=== PATIENT | male | born 1950 | race Caucasian/White ===

== ENCOUNTER 2016-12-22 09:00 | Emergency (ER) | payer OTHER, MEDICAID ==
[2016-12-22 09:02] VITALS: PULSE 65
--- NOTE | 2016-12-22 09:02 | EDPHY ---
H & P Time Seen by Provider: 12/22/16 09:02 - Personal History Tetanus Vaccine Date: ALLERGY - Medical/Surgical History Hx Asthma: Yes Hx Chronic Respiratory Disease: No Hx Diabetes: No Hx Cardiac Disease: Yes Hx Renal Disease: No Hx Cirrhosis: No Hx Alcoholism: No Hx HIV/AIDS: No Hx Splenectomy or Spleen Trauma: No Other PMH: FEMORAL BYPASS, CVA left weakness, CABG, [place], CHF, ORTHO (femur fx), W/C bound, GI Bleed, Left Ankle broken, - Social History Smoking Status: Former smoker Constitutional: Initial Vital Signs Temperature (C) 36.4 C 12/22/16 09:00 Heart Rate 65 12/22/16 09:00 Respiratory Rate 16 12/22/16 09:00 Blood Pressure 148/82 H 12/22/16 09:00 O2 Sat (%) 94 12/22/16 09:00 O2 Delivery Mode Room Air Allergies/Adverse Reactions: Horse/Equine Containing Products [Horse/Equine Product Derivatives] Allergy ( Severe, Verified 05/01/16 21:22) SWELLING Tetanus Vaccines and Toxoid [Tetanus] Allergy (Severe, Verified 05/01/16 21:22) SWELLING bee pollen [Bee Pollen] Allergy (Intermediate, Verified 05/01/16 21:22) SWELLING gabapentin Allergy (Verified 05/01/16 21:22) Other-Enter Comments Home Medications: Medication Instructions Recorded Atorvastatin Calcium [Lipitor 40 40 mg PO HS 02/12/15 mg (*)] Baclofen [Baclofen 10 mg (*)] 5 mg PO TID 02/12/15 Digoxin [Lanoxin 0.125 mg] 0.125 mg PO HS 02/12/15 Metoprolol Tartrate [Lopressor 50 125 mg PO BID@08,16 02/12/15 mg (*)] Nitroglycerin [Nitrostat 0.4 mg 0.4 mg SL PRN PRN 02/12/15 (*)] morphINE SR [Ms Contin/Oramorph 15 15 mg PO BID 02/12/15 mg (*)] Fluticasone/Salmeter 250/50Mcg 2 puffs IH BID 11/27/15 [Advair 250/50 (*)] Furosemide [Lasix 20 MG (*)] 20 mg PO DAILY 11/27/15 Losartan Potassium [Cozaar 25 mg 25 mg PO HS 11/27/15 (*)] Nystatin [Nyamyc] 100,000 units TP BID PRN 11/27/15 Topiramate 50 mg PO DAILY@12 11/27/15 Clopidogrel Bisulfate [Plavix (*)] 75 mg PO DAILY@12 04/10/16 FLUoxetine [Prozac 20 MG (*)] 20 mg PO DAILY 04/10/16 Propylene Glycol/Peg 400/Pf 1 each OP DAILY PRN 04/10/16 [Systane 0.3-0.4% Eye Drops] Bupropion HCl [Wellbutrin Xl] 300 mg PO HS 05/26/16 Warfarin Sodium [Coumadin 5MG (*)] 5 mg PO DAILY 05/26/16 Pantoprazole Sodium [Protonix 40mg 40 mg PO BID #40 tab 05/27/16 (*)] Promethazine HCl [Phenergan 12.5mg 12.5 mg PO Q6 PRN #40 tablet 05/27/16 tab] Medical Decision Making ED Course/Re-evaluation: CHIEF COMPLAINT: abdominal pain HISTORY OF PRESENT ILLNESS: The patient is an anticoagulated 66 y/o male arriving via EMS complaining of acute onset RUQ abdominal pain 1 hour ago. He has a history of MIs, CAD, and CVA with persistent left-sided weakness and is wheelchair-bound. He denies associated nausea, vomiting, diarrhea, fever, chills , or recent illness. His pain decreased from 7/10 to 2/10 en route to the ED. He has a large abdominal scar, but is unable to tell me if he's had any abdominal surgeries. He is a poor historian and is otherwise unable to contribute to history. REVIEW OF SYSTEMS: Limited as patient is a poor historian. PHYSICAL EXAM: HR, BP, O2 Sat, RR. Temp noted General Appearance: Alert, well hydrated, appropriate, and non-toxic appearing. Head: Atraumatic without scalp tenderness or obvious injury Eyes: Pupils equal, round, reactive to light and accommodation, EOMI, no trauma , no injection. Ears: Clear bilaterally, no perforation, normal landmarks Nose: Atraumatic, no rhinorrhea, clear. Throat: There is no erythema or exudates, no lesions, normal tonsils, mucus membranes moist. Neck: Supple, nontender, no lymphadenopathy. Respiratory: No retractions, no distress, no wheezes, and no accessory muscle use. Lungs are clear to auscultation bilaterally. Cardiovascular: Regular rate and rhythm, no murmurs, rubs, or gallops. Good capillary refill all extremities. Gastrointestinal: Abdomen is soft, RUQ tenderness with reducible incisional hernia to the left of abdominal scar, associated distended, no masses, no rebound, no guarding, no peritoneal signs. Well-healed midline scar with small area of excoriation. Musculoskeletal: Normal active ROM of all extremities, atraumatic. Neurological: Alert, appropriate, and interactive. Left arm and bilateral leg weakness at baseline. Skin: No rashes, good turgor, no nodules on palpation. Past medical history: MIs, CVA 2013 with L deficits and wheelchair bound Past surgical history: CABG, femoropopliteal bypass - Dr. Mendez Family history: noncontributory Social history: Private residence Prior medical records reviewed including admission 05/26/16 for GI bleed. DIAGNOSTICS/PROCEDURES/CRITICAL CARE TIME: Abdominal CT. I viewed the images myself on the PACS system. DIFFERENTIAL DIAGNOSIS: The differential diagnosis for the patient's abdominal pain included but was not limited to surgical complication, constipation, appendicitis, cholecystitis, hernias, testicular torsion, gastritis, and urinary tract infection. MEDICAL DECISION MAKING: This is a 66 y/o male with significant history for arthrosclerotic disease presenting with isolated RUQ tenderness onset 1 hour prior to arrival. He is unable to provide much associated history and denies all associated symptoms. Plan for standard abdominal pain work up including IV, ISTAT, and abdominal CT. He declines pain medication at this time. 1030: Abdominal CT is negative per Helgans other than hernia at incision site. Reassessed patient and discussed these findings. Abdomen is benign. Patient will be discharged home with referral to his PCP for follow up. He is comfortable with this plan. Return precautions given. Departure - Departure Disposition: Home, Routine, Self-Care Clinical Impression: Abdominal pain Qualifiers: Abdominal location: generalized Qualified Code(s): R10.84 - Generalized abdominal pain Condition: Good Instructions: Abdominal Pain (ED) Additional Instructions: Follow up with your primary care provider for symptoms not improved over the next 2-3 days. Return to the ED for worsening of condition. Referrals: Patient,NotPresent [Unknown] - As per Instructions Rebecca Pablo MD [[facility] Primary Care Provider] - As per Instructions Report Scribed for: Roberto Alicea Report Scribed by: Nicci Elias Date of Report: 12/22/16 Time of Report: 09:02
[2016-12-22] MEDS ORDERED: IOPAMIDOL (ISOVUE-300) 100 ML BTL IV ONE (09:44)
[2016-12-22 11:24] VITALS: BP 132/53; RESP 18; TEMP 97.7; O2SAT 93
== END 2016-12-22 12:50 | disposition home or self-care (01) ==
DX: R10.84 Generalized abdominal pain (principal); J45.909 Unspecified asthma, uncomplicated; I25.2 Old myocardial infarction; I50.9 Heart failure, unspecified; Z79.01 Long term (current) use of anticoagulants; Z86.73 Personal history of transient ischemic attack (TIA), and cerebral infarction without residual deficits; Z95.1 Presence of aortocoronary bypass graft; Z87.891 Personal history of nicotine dependence
CPT/HCPCS: 74177; 99285; Q9967; 82947-QW

== ENCOUNTER 2017-04-19 14:07 | Emergency (ER) | payer OTHER, MEDICAID ==
[2017-04-19 14:16] VITALS: TEMP 97.7; O2SAT 90
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
[2017-04-19 18:14] VITALS: BP 121/63; PULSE 58; RESP 18
== END 2017-04-19 18:16 | disposition home or self-care (01) ==
LOC: EDUNIT#
PROC: 0HQLXZZ Repair Left Lower Leg Skin, External Approach (ICD-10-PCS; principal; 2017-04-19)
DX: S81.812A Laceration without foreign body, left lower leg, initial encounter (principal); S60.512A Abrasion of left hand, initial encounter; S60.222A Contusion of left hand, initial encounter; S80.12XA Contusion of left lower leg, initial encounter; I25.2 Old myocardial infarction; I50.9 Heart failure, unspecified; Z79.01 Long term (current) use of anticoagulants; Z95.1 Presence of aortocoronary bypass graft; Z87.891 Personal history of nicotine dependence; W26.8XXA Contact with other sharp object(s), not elsewhere classified, initial encounter

== ENCOUNTER 2017-04-27 12:55 | Emergency (ER) | payer OTHER, MEDICAID ==
[2017-04-27 13:07] VITALS: BP 116/81; PULSE 64; RESP 20; TEMP 97.9; O2SAT 95
--- NOTE | 2017-04-27 13:52 | EDPHY ---
H & P Stated Complaint: recheck wound l calvin stitches last week increasing pain HPI/ROS: HPI CHIEF COMPLAINT: Left lower extremity sutures and redness HISTORY OF PRESENT ILLNESS: This patient very pleasant 66-year-old male significant past medical history for CABG with mi, CHF, history of GI bleed, presents emergency room, with concern and pain in his left lower extremity recent sutured laceration. Upon arrival to the emergency room I did evaluate him he has a dressing in place. The dressing was removed. The sutures are in place. There is no wound dehiscence. There is no signs of infection. There is no drainage or redness. Does state it hurts but now feels better after dressing removed. I believe that the dressing was too tight on top of his sutures with a socket was pressing directly on the wound. We removed the dressing and rolled down the sock. There is no signs of infection. I recommend re-dressing wound sutures need to be removed in 12 days from time of onset of suture placement. That should be the 17th of this month. He understands that. This time there is no signs infection. Feels better after compression dressing removed. Past Medical History: CABG, mi, CHF, GI bleed, recent left lower extremity distal laceration repaired. Past Surgical History: No recent surgery Social History: Denies daily use of drugs alcohol tobacco products. Family History: Noncontributory. ROS REVIEW OF SYSTEMS: A comprehensive 10 point review of systems is otherwise negative aside from elements mentioned in the history of present illness. Exam Constitutional appears well, in wheelchair, nontoxic triage nursing summary reviewed, vital signs reviewed, awake/alert. Eyes normal conjunctivae and sclera, EOMI, PERRLA. HENT normal inspection, atraumatic, moist mucus membranes, no epistaxis, neck supple/ no meningismus, no raccoon eyes. Respiratory clear to auscultation bilaterally, normal breath sounds, no respiratory distress, no wheezing. Cardiovascular rate normal, regular rhythm, no murmur, no edema, distal pulses normal. Gastrointestinal soft, non-tender, no rebound, no guarding, normal bowel sounds, no distension, no pulsatile mass. Genitourinary no CVA tenderness. Musculoskeletal no midline vertebral tenderness, full range of motion, no calf swelling, no tenderness of extremities, no meningismus, good pulses, neurovascularly intact. Skin left lower extremity distal aspect anterior calvin; sutures are in place. Clean incision line. No signs of infection no redness no drainage no pus. No significant pain. No significant swelling. pink, warm, & dry, no rash, skin atraumatic. Neurologic awake, alert and oriented x 3, AAOx3, moves all 4 extremities equally, motor intact, sensory intact, CN II-XII intact, normal cerebellar, normal vision, normal speech. Psychiatric normal mood/affect. Heme/Lymph/Immune no lymphadenopathy. Differential Diagnosis: Incision site looks clean dry and intact no signs infection. We have changed the dressing. Patient understands have sutures removed in 10-12 days. Keep an eye on it. If he has redness, worsening pain or fever return emergency room. Source: Patient - Personal History Current Tetanus/Diphtheria Vaccine: Unsure Tetanus Vaccine Date: ALLERGY - Medical/Surgical History Hx Asthma: Yes Hx Chronic Respiratory Disease: No Hx Diabetes: No Hx Cardiac Disease: Yes Hx Renal Disease: No Hx Cirrhosis: No Hx Alcoholism: No Hx HIV/AIDS: No Hx Splenectomy or Spleen Trauma: No Other PMH: FEMORAL BYPASS, CVA left weakness, CABG, [place], CHF, ORTHO (femur fx), W/C bound, GI Bleed, Left Ankle broken, - Social History Smoking Status: Former smoker Constitutional: Initial Vital Signs Temperature (C) 36.6 C 04/27/17 13:05 Heart Rate 64 04/27/17 13:05 Respiratory Rate 20 04/27/17 13:05 Blood Pressure 116/81 H 04/27/17 13:05 O2 Sat (%) 95 04/27/17 13:05 O2 Delivery Mode Room Air Allergies/Adverse Reactions: Horse/Equine Containing Products [Horse/Equine Product Derivatives] Allergy ( Severe, Verified 04/27/17 13:04) SWELLING Tetanus Vaccines and Toxoid [Tetanus] Allergy (Severe, Verified 04/27/17 13:04) SWELLING bee pollen [Bee Pollen] Allergy (Intermediate, Verified 04/27/17 13:04) SWELLING gabapentin Allergy (Verified 04/27/17 13:04) Other-Enter Comments Home Medications: Medication Instructions Recorded Atorvastatin Calcium [Lipitor 40 40 mg PO HS 02/12/15 mg (*)] Baclofen [Baclofen 10 mg (*)] 5 mg PO TID 02/12/15 Digoxin [Lanoxin 0.125 mg] 0.125 mg PO HS 02/12/15 Metoprolol Tartrate [Lopressor 50 125 mg PO BID@08,16 02/12/15 mg (*)] Nitroglycerin [Nitrostat 0.4 mg 0.4 mg SL PRN PRN 02/12/15 (*)] morphINE SR [Ms Contin/Oramorph 15 15 mg PO BID 02/12/15 mg (*)] Fluticasone/Salmeter 250/50Mcg 2 puffs IH BID 11/27/15 [Advair 250/50 (*)] Furosemide [Lasix 20 MG (*)] 20 mg PO DAILY 11/27/15 Losartan Potassium [Cozaar 25 mg 25 mg PO HS 11/27/15 (*)] Nystatin [Nyamyc] 100,000 units TP BID PRN 11/27/15 Topiramate 50 mg PO DAILY@11/27/15 Clopidogrel Bisulfate [Plavix (*)] 75 mg PO DAILY@12 04/10/16 FLUoxetine [Prozac 20 MG (*)] 20 mg PO DAILY 04/10/16 Propylene Glycol/Peg 400/Pf 1 each OP DAILY PRN 04/10/16 [Systane 0.3-0.4% Eye Drops] Bupropion HCl [Wellbutrin Xl] 300 mg PO HS 05/26/16 Warfarin Sodium [Coumadin 5MG (*)] 5 mg PO DAILY 05/26/16 Pantoprazole Sodium [Protonix 40mg 40 mg PO BID #40 tab 05/27/16 (*)] Promethazine HCl [Phenergan 12.5mg 12.5 mg PO Q6 PRN #40 tablet 05/27/16 tab] Departure - Departure Disposition: Home, Routine, Self-Care Clinical Impression: Leg laceration Qualifiers: Encounter type: initial encounter Laterality: left Qualified Code(s): S81.812A - Laceration without foreign body, left lower leg, initial encounter Condition: Good Instructions: Laceration (ED), Care For Your Stitches (ED) Additional Instructions: 1. If you have worsening pain, redness, drainage, swelling or any questions or concerns return emergency room. 2. Your sutures need to be removed in 12 days from time of onset. That is 4 days from or May 01. Referrals: Babita Ayala PA [Primary Care Provider] - As per Instructions
== END 2017-04-27 14:24 | disposition home or self-care (01) ==
DX: S81.812D Laceration without foreign body, left lower leg, subsequent encounter (principal); I50.9 Heart failure, unspecified; I25.2 Old myocardial infarction; J45.909 Unspecified asthma, uncomplicated; Z95.1 Presence of aortocoronary bypass graft; Z86.73 Personal history of transient ischemic attack (TIA), and cerebral infarction without residual deficits; Z87.891 Personal history of nicotine dependence; Z79.01 Long term (current) use of anticoagulants; X58.XXXD Exposure to other specified factors, subsequent encounter

== ENCOUNTER 2017-05-01 11:35 | Emergency (ER) | payer OTHER, MEDICAID ==
[2017-05-01 11:42] VITALS: RESP 18; TEMP 98.2
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
[2017-05-01 14:17] VITALS: BP 139/64; PULSE 59; O2SAT 96
== END 2017-05-01 13:40 | disposition home or self-care (01) ==
DX: L03.115 Cellulitis of right lower limb (principal); J45.909 Unspecified asthma, uncomplicated; I25.2 Old myocardial infarction; I25.810 Atherosclerosis of coronary artery bypass graft(s) without angina pectoris; I50.9 Heart failure, unspecified; Z79.01 Long term (current) use of anticoagulants; Z86.73 Personal history of transient ischemic attack (TIA), and cerebral infarction without residual deficits; Z87.891 Personal history of nicotine dependence

== ENCOUNTER → 2017-08-15 | Outpatient (CLI) | payer OTHER, MEDICAID | LOC: FCPNEURO 22:56 | PROVIDERS: ATTEND Psychiatry & Neurology Sleep Medicine | DX: G47.39 Other sleep apnea (principal) ==

== ENCOUNTER 2017-11-11 11:08 | Emergency (ER) | payer OTHER, MEDICAID ==
--- NOTE | 2017-11-11 10:54 | EDPHY ---
H & P Constitutional: Initial Vital Signs Temperature (C) 36.7 C 11/11/17 11:08 Heart Rate 60 11/11/17 11:08 Respiratory Rate 16 11/11/17 11:08 Blood Pressure 153/91 H 11/11/17 11:08 O2 Sat (%) 94 11/11/17 11:08 O2 Delivery Mode Nasal Cannula O2 (L/minute) 2 Allergies/Adverse Reactions: Horse/Equine Containing Products [Horse/Equine Product Derivatives] Allergy ( Severe, Verified 11/11/17 11:34) SWELLING Tetanus Vaccines and Toxoid [Tetanus] Allergy (Severe, Verified 11/11/17 11:34) SWELLING bee pollen [Bee Pollen] Allergy (Intermediate, Verified 11/11/17 11:34) SWELLING gabapentin Allergy (Verified 11/11/17 11:34) Other-Enter Comments Home Medications: Medication Instructions Recorded Atorvastatin Calcium [Lipitor 40 40 mg PO HS 02/12/15 mg (*)] Baclofen [Baclofen 10 mg (*)] 5 mg PO TID 02/12/15 Digoxin [Lanoxin 0.125 mg] 0.125 mg PO HS 02/12/15 Metoprolol Tartrate [Lopressor 50 125 mg PO BID@,16 02/12/15 mg (*)] Nitroglycerin [Nitrostat 0.4 mg 0.4 mg SL PRN PRN 02/12/15 (*)] morphINE SR [Ms Contin/Oramorph 15 15 mg PO BID 02/12/15 mg (*)] Fluticasone/Salmeter 250/50Mcg 2 puffs IH BID 11/27/15 [Advair 250/50 (*)] Furosemide [Lasix 20 MG (*)] 20 mg PO DAILY 11/27/15 Losartan Potassium [Cozaar 25 mg 25 mg PO HS 11/27/15 (*)] Nystatin [Nyamyc] 100,000 units TP BID PRN 11/27/15 Topiramate 50 mg PO DAILY@12 11/27/15 FLUoxetine [Prozac 20 MG (*)] 20 mg PO DAILY 04/10/16 Propylene Glycol/Peg 400/Pf 1 each OP DAILY PRN 04/10/16 [Systane 0.3-0.4% Eye Drops] Cephalexin [Keflex] 500 mg PO QID #28 cap 05/01/17 Medical Decision Making - Diagnostics Imaging Results: Imaging Impressions Head CT 11/11/17 11:14 Impression: Areas of old encephalomalacia involving the right frontoparietal and left posterior parietal regions of the brain with more extensive white matter changes on the right side than on a prior study of 2012. There is no acute intracranial hemorrhage observed. If there is further clinical concern regarding the patient's symptoms, MR imaging is suggested, if not otherwise contraindicated. Findings were discussed with Roberto Alicea MD at 11:22, on 11/11/2017. He requests a CTA of the head and neck, which will be subsequently performed, and separately reported. Head CTA 11/11/17 11:14 Impression: 1. Profound, extensive atherosclerotic calcific plaquing, with occlusion of the proximal right internal carotid artery shortly after its origin, with reconstitution intracranially at the supraclinoid aspect (please see the above discussion). 2. Critical tandem stenoses of the proximal left internal carotid artery, with patency of the [id number] cervical portions of the left ICA. 3. Patent codominant vertebral arteries. CT ANGIOGRAPHY OF THE BRAIN: The distal cervical, petrous, and cavernous portions of the right internal carotid artery are occluded with peripheral atherosclerotic calcifications. There is reconstitution of the supraclinoid portion of the right internal carotid artery, likely from retrograde flow and cross fill through the anterior communicating artery. The distal left cervical, petrous, cavernous, and supraclinoid internal carotid arteries are patent with atherosclerotic calcifications involving the parasellar portions of the internal carotid arteries. The A1 and A2 segments are patent as are the M1, M2, and M3 trifurcation vessels. With regards to the posterior circulation, the distal vertebral arteries are patent; there is atherosclerotic calcific plaque involving portions of the vertebral arteries near the skull base, right much greater than left. The posterior inferior cerebellar arteries, vertebrobasilar confluence, basilar artery, superior cerebellar arteries, and the posterior cerebral arteries are patent. The posterior communicating arteries are hypoplastic. Impression: 1. Occlusion of the distal cervical, petrous, and cavernous portions of the right internal carotid artery with reconstitution of the supraclinoid portion. 2. Intact [place] of [place], with extensive atherosclerotic features. CT Source Data: The land agent topogram demonstrates median sternotomy wires. The visualized portions of the heart are enlarged, and there is mediastinal lipomatosis; extensive atherosclerotic features are noted, with prior evidence of CABG. There is some peribronchial thickening and there are dependent changes. Imaging of the base of the neck and the upper thoracic inlet are degraded by motion artifact. The trachea is patent, although there is suboptimal assessment of the hypopharynx and larynx. Extensive degenerative features of the cervical spine are noted. There is an old left posterior parietal infarct, and extensive encephalomalacia of the right cerebral hemisphere with right frontal/parietal areas of encephalomalacia. Measurement of carotid stenosis is based on the residual internal carotid diameter with [place] Symptomatic Carotid Endarterectomy Trial (NASCET) based stenosis levels. Preliminary results were discussed with Roberto Alicea MD at 11:54, on 2017. Neck CTA 11/11/17 11:14 Impression: 1. Profound, extensive atherosclerotic calcific plaquing, with occlusion of the proximal right internal carotid artery shortly after its origin, with reconstitution intracranially at the supraclinoid aspect (please see the above discussion). 2. Critical tandem stenoses of the proximal left internal carotid artery, with patency of the [id number] cervical portions of the left ICA. 3. Patent codominant vertebral arteries. CT ANGIOGRAPHY OF THE BRAIN: The distal cervical, petrous, and cavernous portions of the right internal carotid artery are occluded with peripheral atherosclerotic calcifications. There is reconstitution of the supraclinoid portion of the right internal carotid artery, likely from retrograde flow and cross fill through the anterior communicating artery. The distal left cervical, petrous, cavernous, and supraclinoid internal carotid arteries are patent with atherosclerotic calcifications involving the parasellar portions of the internal carotid arteries. The A1 and A2 segments are patent as are the M1, M2, and M3 trifurcation vessels. With regards to the posterior circulation, the distal vertebral arteries are patent; there is atherosclerotic calcific plaque involving portions of the vertebral arteries near the skull base, right much greater than left. The posterior inferior cerebellar arteries, vertebrobasilar confluence, basilar artery, superior cerebellar arteries, and the posterior cerebral arteries are patent. The posterior communicating arteries are hypoplastic. Impression: 1. Occlusion of the distal cervical, petrous, and cavernous portions of the right internal carotid artery with reconstitution of the supraclinoid portion. 2. Intact [place] of [place], with extensive atherosclerotic features. CT Source Data: The land agent topogram demonstrates median sternotomy wires. The visualized portions of the heart are enlarged, and there is mediastinal lipomatosis; extensive atherosclerotic features are noted, with prior evidence of CABG. There is some peribronchial thickening and there are dependent changes. Imaging of the base of the neck and the upper thoracic inlet are degraded by motion artifact. The trachea is patent, although there is suboptimal assessment of the hypopharynx and larynx. Extensive degenerative features of the cervical spine are noted. There is an old left posterior parietal infarct, and extensive encephalomalacia of the right cerebral hemisphere with right frontal/parietal areas of encephalomalacia. Measurement of carotid stenosis is based on the residual internal carotid diameter with [place] Symptomatic Carotid Endarterectomy Trial (NASCET) based stenosis levels. Preliminary results were discussed with Roberto Alicea MD at 11:54, on 2017. Imaging: Discussed imaging studies w/ call center specialist Radiologist ED Course/Re-evaluation: CHIEF COMPLAINT: Stroke alert HISTORY OF PRESENT ILLNESS: This patient is an anticoagulated (Xarelto) 67 year old male arriving via EMS for evaluation of possible stroke. He has significant past medical history for prior CVA with resultant left-sided deficits. His symptoms began 30 minutes prior to arrival, around 10:40am today. He initially was aphasic, and his family noticed left-sided facial droop. His speech difficulty resolved slightly during transport but he continues to have slurred speech. Vitals stable in transport. No recent trauma, head injury, or illness. REVIEW OF SYSTEMS: A 10 point review of systems was performed and is negative with the exception of the elements mentioned in the history of present illness. PHYSICAL EXAM: HR, BP, O2 Sat, RR. Temp noted General Appearance: Alert, well hydrated, appropriate, and non-toxic appearing. Head: Atraumatic without scalp tenderness or obvious injury Eyes: Pupils equal, round, reactive to light and accommodation, EOMI, no trauma , no injection. Ears: Clear bilaterally, no perforation, normal landmarks Nose: Atraumatic, no rhinorrhea, clear. Throat: There is no erythema or exudates, no lesions, normal tonsils, mucus membranes moist. Neck: Supple, nontender, no lymphadenopathy. Respiratory: No retractions, no distress, no wheezes, and no accessory muscle use. Lungs are clear to auscultation bilaterally. Cardiovascular: Regular rate and rhythm, no murmurs, rubs, or gallops. Bilateral carotid, radial, dorsalis pedis, and posterior tibial pulses intact. Good capillary refill all extremities. Gastrointestinal: Abdomen is soft, nontender, non-distended, no masses, no rebound, no guarding, no peritoneal signs. Musculoskeletal: Left arm hemiparesis with contracture secondary to prior CVA. Atraumatic. Neurological: Slurred speech. Left arm hemiparesis resulting from prior CVA in 2013. Patient is alert and interactive. Skin: No rashes, good turgor, no nodules on palpation. 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 Atrial fibrillation. COPD. Chronic pain. Coronary artery disease. Past surgical history: CABG. Family history: Noncontributory. Social history: Family at bedside. Lives in [place]. Single. DIAGNOSTICS/PROCEDURES/CRITICAL CARE TIME: Critical care time spent by me, Dr. Alicea, exclusively with this patient was 30 minutes, exclusive of PA time and exclusive of procedures. The organ system at risk was nervous and I consulted with neurology, radiology, and vascular surgery and emergently transferred the patient to a neurosurgeon at [facility] to prevent worsening of the patients condition. The 12 lead EKG was interpreted by myself. See hard copy and/or "tracemaster" electronic copy for interpretation. Sinus rhythm, no ischemic changes. Rate 56. DIFFERENTIAL DIAGNOSIS: The differential diagnosis for the patient's neurologic deficits included but was not limited to peripheral causes, central causes including CVA, TIA, electrolyte abnormalities and dehydration, cardiogenic causes, atypical causes like migraine syndrome. MEDICAL DECISION MAKIN:09 Met EMS on arrival. 67 y/o male with history of prior CVA presents with speech difficulty and left-sided facial droop, now resolving. Symptoms began at 10:40am. I do not note any facial neurologic deficits on exam. This patient is not a candidate for TPA as he is anticoagulated (Xarelto). Patient will go directly to imaging for CT head, CTA head/neck. Plan for EKG, labs including CBC, chemistries, coag, type and screen. EKG shows sinus rhythm, no ischemia, rate 56. 11:[address] Singh, radiologist. No acute findings on noncontrast head CT. Patient's INR is subtherapeutic at 1.29, but as he is on Xarelto, this is less diagnostic. 11:[address] Singh. CTA shows occluded right internal carotid, critical stenosis of left ICA. See above for full interpretation. 12:00 Consulted with neurology at [facility]. Carotid endarterectomy and vascular consult. 12:[address] Mendez, vascular surgeon. He will consult. 12:11 Dr. Mendez at bedside. He recommends transfer to [facility] for urgent intervention. RCA completely occluded. Plan for emergent transfer to [facility] for thrombolysis and further intervention. 12:[address] Burton at [facility]. Plan to transport by helicopter to [facility] ER. 13:10 Patient en route to [facility] by [employer]. - Data Points Laboratory Results: Laboratory Results 11/11/17 11:00 11/11/17 11:00 11/11/17 11/11/17 11/11/17 12:00 11:00 11:00 WBC RBC Hgb Hct MCV MCH MCHC RDW Plt Count MPV Neut % (Auto) Lymph % (Auto) Crowley % (Auto) Eos % (Auto) Baso % (Auto) Nucleat RBC Rel Count Absolute Neuts (auto) Absolute Lymphs (auto) Absolute Monos (auto) Absolute Eos (auto) Absolute Basos (auto) Absolute Nucleated RBC Immature Gran % Immature Gran # PT 16.3 SEC H SEC (12.0-15.0) INR 1.29 H (0.83-1.16) APTT 32.2 SEC SEC (23.0-38.0) Sodium 139 mEq/L mEq/L (135-145) Potassium 4.2 mEq/L mEq/L (3.5-5.2) Chloride 102 mEq/L mEq/L (97-110) Carbon Dioxide 24 mEq/l mEq/l (22-31) Anion Gap 13 mEq/L mEq/L (8-16) BUN 11 mg/dL mg/dL (7-23) Creatinine 1.0 mg/dL mg/dL (0.7-1.3) Estimated GFR > 60 Glucose 103 mg/dL H mg/dL (70-100) Calcium 9.3 mg/dL mg/dL (8.5-10.4) Troponin I < 0.012 ng/mL ng/mL (0.000-0.034) Patient ABO/Rh AB POSITIVE Antibody Screen NEGATIVE 11/11/17 11:00 WBC 9.96 10^3/uL H 10^3/uL (3.80-9.50) RBC 5.55 10^6/uL 10^6/uL (4.40-6.38) Hgb 15.4 g/dL g/dL (13.7-17.5) Hct 46.9 % % (40.0-51.0) MCV 84.5 fL fL (81.5-99.8) MCH 27.7 pg L pg (27.9-34.1) MCHC 32.8 g/dL g/dL (32.4-36.7) RDW 15.9 % H % (11.5-15.2) Plt Count 173 10^3/uL 10^3/uL (150-400) MPV 11.0 fL fL (8.7-11.7) Neut % (Auto) 70.8 % % (39.3-74.2) Lymph % (Auto) 14.1 % L % (15.0-45.0) Crowley % (Auto) 10.1 % % (4.5-13.0) Eos % (Auto) 3.1 % % (0.6-7.6) Baso % (Auto) 1.1 % % (0.3-1.7) Nucleat RBC Rel Count 0.0 % % (0.0-0.2) Absolute Neuts (auto) 7.05 10^3/uL H 10^3/uL (1.70-6.50) Absolute Lymphs (auto) 1.40 10^3/uL 10^3/uL (1.00-3.00) Absolute Monos (auto) 1.01 10^3/uL H 10^3/uL (0.30-0.80) Absolute Eos (auto) 0.31 10^3/uL 10^3/uL (0.03-0.40) Absolute Basos (auto) 0.11 10^3/uL H 10^3/uL (0.02-0.10) Absolute Nucleated RBC 0.00 10^3/uL 10^3/uL (0-0.01) Immature Gran % 0.8 % % (0.0-1.1) Immature Gran # 0.08 10^3/uL 10^3/uL (0.00-0.10) PT INR APTT Sodium Potassium Chloride Carbon Dioxide Anion Gap BUN Creatinine Estimated GFR Glucose Calcium Troponin I Patient ABO/Rh Antibody Screen Departure - Departure Disposition: Acute Care Hospital Not [facility] Clinical Impression: Left carotid artery stenosis, Right carotid artery occlusion Condition: Fair Referrals: Patient,NotPresent [Unknown] - As per Instructions Report Scribed for: Roberto Alicea Report Scribed by: Amberly Joe Date of Report: 11/11/17 Time of Report: 10:54
[2017-11-11 11:25] LABS: PLATELET COUNT 173 10^3/uL (150-400)
[2017-11-11 11:37] LABS: INR 1.29 (0.83-1.16); PROTIME(PATIENT) 16.3 SEC (12.0-15.0)
[2017-11-11 11:43] VITALS: RESP 16
--- NOTE | 2017-11-11 11:51 | CPEKG ---
Heart Rate: 56 RR Interval: 1071 P-R Interval: 212 QRSD Interval: 96 QT Interval: 424 QTC Interval: 410 P Java: 53 QRS Java: 46 T Wave Java: 198 EKG Severity - NORMAL ECG - EKG Impression: SINUS RHYTHM Electronically Signed By: Roberto Alicea 11-Nov-2017 14:09:33
[2017-11-11 13:27] VITALS: BP 148/77; PULSE 54; TEMP 98.2; O2SAT 94
--- NOTE | 2017-11-11 15:00 | GCON ---
[f rep st] CONSULTATION DATE OF CONSULTATION: 11/11/2017 HISTORY OF PRESENTING ILLNESS: The patient is a 67-year-old male who was brought to the ER with a TI A, possible stroke with inability to speak for a brief amount of time. His symptoms have largely res olved by the time I was consulted; however, his CTA shows complete occlusion of his right carotid fro m a tight stenosis at the origin of the internal carotid all way up into the middle cerebral area. Erin collins also has a severe 90% carotid stenosis of the left side. The vertebral arteries are wide open. He is definitely a vasculopath, having had multiple heart surgeries, had a previous femoral-popliteal b ypass by myself 4 years ago. He has had a previous CVA, leaving him hemiparetic on the left side. Erin collins does have an intact [place] of [place]. PAST MEDICAL HISTORY: Includes coronary surgery, abdominal aortic repair and a femoral-popliteal byp ass as well as the CVA. ALLERGIES: Tetanus, bee pollen, Neurontin. PRESENT MEDICATIONS: Lipitor, baclofen, digoxin, metoprolol, nitroglycerin, morphine, MS-Contin, Adv air, Lasix, potassium, losartan, nystatin, Prozac, Systane, and Keflex. EXAM: GENERAL: An overweight 67-year-old male who is in no acute distress. HEAD AND NECK: Pupils to be normal, nonicteric. No adenopathy. He has no carotid bruits. CHEST: Clear. CARDIAC: Irreg ular rhythm. ABDOMEN: Soft with a large midline abdominal incision and a large ventral hernia in th e lower abdomen. EXTREMITIES: A left hemiparesis. IMPRESSION: Transient ischemic attack. This may or may not be related to an acute occlusion of his right carotid, which I suspect is old from his previous stroke 5 years ago. He has had no carotid im aging that we can find to verify whether this is fresh or old and since the symptoms have largely res olved with no significant acute defect, my suspicion is this is an old lesion and that his troubles a re hypoperfusion secondary to his left carotid high-grade stenosis. He will need his left carotid fi xed at some point, but at this point, I would recommend an attempt at thrombolysis in case this is a new finding. He is already on anticoagulation and there is no sign of intracranial bleeding. I full y suspect this is an old occlusion. Risks and options were fully discussed with the patient and his family. /[id number]/MODL
== END 2017-11-11 13:27 | disposition short-term general hospital (02) ==
LOC: EDUNIT#
DX: I65.23 Occlusion and stenosis of bilateral carotid arteries (principal); J44.9 Chronic obstructive pulmonary disease, unspecified; I25.810 Atherosclerosis of coronary artery bypass graft(s) without angina pectoris; Z79.01 Long term (current) use of anticoagulants; Z86.73 Personal history of transient ischemic attack (TIA), and cerebral infarction without residual deficits
CPT/HCPCS: 82947-QW

== ENCOUNTER 2018-02-27 10:57 | Emergency (ER) | payer OTHER, MEDICAID ==
--- NOTE | 2018-02-27 11:15 | EDPHY ---
H & P Time Seen by Provider: 02/27/18 11:12 HPI/ROS: CHIEF COMPLAINT: Mechanical fall, head injury HISTORY OF PRESENT ILLNESS: 67-year-old male presents to the emergency department by ambulance after he had a witnessed fall out of his wheelchair. The patient is wheelchair-bound since having a stroke a few years ago and the patient was trying to go up the curb and the foot of his wheelchair caught the curb and then he was "pitched forward". The patient denies loss of consciousness. He denies a headache. Denies neck or back pain. Denies chest pain or difficulty breathing. Denies abdominal pain or vomiting. The patient has an extensive heart history and is on anticoagulation medication. REVIEW OF SYSTEMS: Constitutional: No fever, no chills. Eyes: No double or blurry vision. ENT: No sore throat. Respiratory: No cough, no shortness of breath. Cardiac: No chest pain. Gastrointestinal: No abdominal pain, vomiting or diarrhea. Genitourinary: No dysuria. Musculoskeletal: No neck or back pain. Skin: Forehead abrasion. No rashes. Neurological: No headache. Past Medical/Surgical History: CVA, bypass surgery, left ankle fracture age 17 Social History: Single and lives in [place] Smoking Status: Former smoker Physical Exam: General Appearance: Alert, no distress. Mentating normally and answering questions appropriately. Left anterior forehead abrasion just above the left eyebrow. No suturable lacerations noted. Eyes: Pupils equal and round. Extraocular motions are all intact. ENT: Mouth: Mucous membranes moist. Respiratory: No wheezing, rhonchi, or rales, lungs are clear to auscultation. Cardiovascular: Regular rate and rhythm. Gastrointestinal: Abdomen is soft and nontender, no masses, no rebound or guarding, bowel sounds normal. Neurological: Alert and oriented x 3, cranial nerves II through XII grossly intact Skin: Warm and dry, no rashes. Superficial abrasion the dorsal aspect of the left hand, bilateral anterior aspect of the knees. Forehead abrasion as mentioned above. Musculoskeletal: Nontender to palpate along the cervical, thoracic or lumbar spine. Neck is supple. Extremities: Patient has left-sided deficit which is chronic from his previous stroke. He also has chronic deformity noted to his left foot and ankle from injury when he was 17. Psychiatric: Patient is oriented X 3, there is no agitation. Constitutional: Initial Vital Signs Temperature (C) 36.7 C 02/27/18 11:05 Heart Rate 69 02/27/18 11:05 Respiratory Rate 18 02/27/18 11:05 Blood Pressure 121/64 H 02/27/18 11:05 O2 Sat (%) 93 02/27/18 11:05 O2 Delivery Mode Room Air Allergies/Adverse Reactions: Horse/Equine Containing Products [Horse/Equine Product Derivatives] Allergy ( Severe, Verified 11/11/17 11:34) SWELLING Tetanus Vaccines and Toxoid [Tetanus] Allergy (Severe, Verified 11/11/17 11:34) SWELLING bee pollen [Bee Pollen] Allergy (Intermediate, Verified 11/11/17 11:34) SWELLING gabapentin Allergy (Verified 11/11/17 11:34) Other-Enter Comments Home Medications: Medication Instructions Recorded Atorvastatin Calcium [Lipitor 40 40 mg PO HS 02/12/15 mg (*)] Baclofen [Baclofen 10 mg (*)] 5 mg PO TID 02/12/15 Digoxin [Lanoxin 0.125 mg] 0.125 mg PO HS 02/12/15 Metoprolol Tartrate [Lopressor 50 125 mg PO BID@,02/12/15 mg (*)] Nitroglycerin [Nitrostat 0.4 mg 0.4 mg SL PRN PRN 02/12/15 (*)] morphINE SR [Ms Contin/Oramorph 15 15 mg PO BID 02/12/15 mg (*)] Fluticasone/Salmeter 250/50Mcg 2 puffs IH BID 11/27/15 [Advair 250/50 (*)] Furosemide [Lasix 20 MG (*)] 20 mg PO DAILY 11/27/15 Losartan Potassium [Cozaar 25 mg 25 mg PO HS 11/27/15 (*)] Nystatin [Nyamyc] 100,000 units TP BID PRN 11/27/15 Topiramate 50 mg PO DAILY@12 11/27/15 FLUoxetine [Prozac 20 MG (*)] 20 mg PO DAILY 04/10/16 Propylene Glycol/Peg 400/Pf 1 each OP DAILY PRN 04/10/16 [Systane 0.3-0.4% Eye Drops] Cephalexin [Keflex] 500 mg PO QID #28 cap 05/01/17 Medical Decision Making - Diagnostics Imaging Results: Imaging Impressions Head CT 02/27/18 11:05 Impression: 1. Left frontal scalp hematoma with no acute intracranial findings. 2. Additional findings as above. Findings discussed with Jacinda Borges on 02/27/2018 at 11:43. Imaging: Discussed imaging studies w/ call taker Radiologist ED Course/Re-evaluation: 67-year-old male presents to the emergency department after he had a mechanical fall out of his wheelchair. Because he is on anticoagulant medication, CT imaging of the head has been ordered and is pending. CT imaging of the brain is negative for intracranial bleed or fracture. The patient's abrasions were thoroughly cleansed and dressed. He was given closed-head injury precautions. Case management is helping to arrange for a ride home. Differential Diagnosis: Head injury including but not limited to concussion, skull fracture, intraparenchymal contusion, subarachnoid, subdural and epidural hematoma. Departure - Departure Disposition: Home, Routine, Self-Care Clinical Impression: Closed head injury Qualifiers: Encounter type: initial encounter Qualified Code(s): S09.90XA - Unspecified injury of head, initial encounter Condition: Good Instructions: Head Injury (ED) Additional Instructions: Avoid any activity that might put you at risk for another head injury for at least 1 week. Return to the emergency department if he developed worsening headache, vomiting, altered mental status, or if you feel worse in any way. Keep abrasions clean, dry, and protected. Referrals: Patient,NotPresent [Unknown] - As per Instructions
[2018-02-27 14:09] VITALS: BP 145/70
--- NOTE | 2018-02-27 14:54 | ASMTCMCOM ---
CM Note CM Note Notes: Transportation request from ED Dr. Borges. The pt. stated that he is wheelchair bound and his care provider took his wheel chair home. This news writer used VEYO procedure in error and given a confirmation number of [id number]. Date Signed: 02/27/2018 02:53 PM Electronically Signed By:Shawn De La Fuente LCSW
--- NOTE | 2018-02-27 14:57 | ASMTLACE ---
LACE Length of stay for Answers: Less than 1 day current admission Acuity / Level of Answers: No Care: Did the patient have an inpatient admission? Comorbidities - select Answers: History of falls all that apply Other Notes: HX Stroke # of Emergency department Answers: 1-2 visits in the last 6 months Score: 5 Date Signed: 02/27/2018 02:56 PM Electronically Signed By:Shawn De La Fuente LCSW
== END 2018-02-27 14:09 | disposition home or self-care (01) ==
LOC: EDUNIT#
DX: S09.90XA Unspecified injury of head, initial encounter (principal); Z86.73 Personal history of transient ischemic attack (TIA), and cerebral infarction without residual deficits; Z87.891 Personal history of nicotine dependence; W05.0XXA Fall from non-moving wheelchair, initial encounter

== ENCOUNTER 2018-03-03 15:37 | Emergency (ER) | payer OTHER, MEDICAID ==
--- NOTE | 2018-03-03 15:42 | EDPHY ---
H & P Time Seen by Provider: 03/03/18 15:37 HPI/ROS: CHIEF COMPLAINT: Shortness of breath HISTORY OF PRESENT ILLNESS: 67-year-old male with CAD presents with shortness of breath. His home healthcare nurse was visiting him this afternoon and felt that he was more short of breath of usual. She called 911 and on EMS arrival, the patient denied acute change in shortness of breath and refused transport. He c/o ongoing SOB for months. Uses CPAP at night. No recent cough or fever. No chest discomfort. REVIEW OF SYSTEMS: complete 10 point ROS negative except at noted in the HPI Source: Patient - Personal History Tetanus Vaccine Date: ALLERGY - Medical/Surgical History Hx Asthma: Yes Hx Chronic Respiratory Disease: Yes Hx Diabetes: No Hx Cardiac Disease: Yes Hx Renal Disease: No Hx Cirrhosis: No Hx Alcoholism: No Hx HIV/AIDS: No Hx Splenectomy or Spleen Trauma: No Other PMH: FEMORAL BYPASS, CVA left weakness, CABG, MS, CHF, ORTHO (femur fx), W/C bound, GI Bleed, Left Ankle broken, - Social History Smoking Status: Former smoker Alcohol Use: Sober Drug Use: None Additional Social History: Lives alone in own apartment - Physical Exam Exam: General Appearance: Alert, pleasant Eyes: Pupils equal and round, no conjunctival pallor ENT, Mouth: Mucous membranes moist Neck: Normal inspection Respiratory: Lungs are clear to auscultation anteriorly Cardiovascular: Regular rate and rhythm Gastrointestinal: Abdomen is soft and nontender Neurological: A&O, left upper extremity weakness Skin: Warm and dry Extremities: Bilateral pedal edema Psychiatric: Mood and affect normal Constitutional: Initial Vital Signs Temperature (C) 36.8 C 03/03/18 15:47 Heart Rate 71 03/03/18 15:47 Respiratory Rate 18 03/03/18 15:47 Blood Pressure 148/83 H 03/03/18 15:47 O2 Sat (%) 95 03/03/18 15:47 O2 Delivery Mode Nasal Cannula O2 (L/minute) 2 Allergies/Adverse Reactions: Horse/Equine Containing Products [Horse/Equine Product Derivatives] Allergy ( Severe, Verified 03/03/18 15:47) SWELLING Tetanus Vaccines and Toxoid [Tetanus] Allergy (Severe, Verified 03/03/18 15:47) SWELLING bee pollen [Bee Pollen] Allergy (Intermediate, Verified 03/03/18 15:47) SWELLING gabapentin Allergy (Verified 03/03/18 15:47) Other-Enter Comments Home Medications: Medication Instructions Recorded Atorvastatin Calcium [Lipitor 40 40 mg PO HS 02/12/15 mg (*)] Baclofen [Baclofen 10 mg (*)] 5 mg PO TID 02/12/15 Digoxin [Lanoxin 0.125 mg] 0.125 mg PO HS 02/12/15 Metoprolol Tartrate [Lopressor 50 125 mg PO BID@08,16 02/12/15 mg (*)] Nitroglycerin [Nitrostat 0.4 mg 0.4 mg SL PRN PRN 02/12/15 (*)] morphINE SR [Ms Contin/Oramorph 15 15 mg PO BID 02/12/15 mg (*)] Fluticasone/Salmeter 250/50Mcg 2 puffs IH BID 11/27/15 [Advair 250/50 (*)] Furosemide [Lasix 20 MG (*)] 20 mg PO DAILY 11/27/15 Losartan Potassium [Cozaar 25 mg 25 mg PO HS 11/27/15 (*)] Nystatin [Nyamyc] 100,000 units TP BID PRN 11/27/15 Topiramate 50 mg PO DAILY@12 11/27/15 FLUoxetine [Prozac 20 MG (*)] 20 mg PO DAILY 04/10/16 Propylene Glycol/Peg 400/Pf 1 each OP DAILY PRN 04/10/16 [Systane 0.3-0.4% Eye Drops] Cephalexin [Keflex] 500 mg PO QID #28 cap 05/01/17 Medical Decision Making - Diagnostics EKG Interpretation: EKG interpreted by me reveals normal sinus rhythm, rate 63, T-wave flattening in the inferior leads. Interpretation: Borderline EKG Imaging Results: Imaging Impressions Chest X-Ray 03/03/18 15:40 Impression: Mild CHF. Chest/Thorax CTA 03/03/18 16:45 Impression: 1. No definite pulmonary thromboemboli. 2. Marked cardiomegaly with evidence of congestive failure. 3. Trace pleural effusions. Findings were communicated by telephone with Dr. JULIET LINARES at 03/03/2018 17 :33 Imaging: I viewed and interpreted images myself ED Course/Re-evaluation: This patient presents with subacute dyspnea. Oxygen saturation prior to arrival was in the mid 80s. Oxygen saturation 95% on room air in the emergency department and the patient denies dyspnea now. Stat EKG reveals no evidence of ischemia or dysrhythmia. Chest x-ray reveals mild pulmonary edema. He currently takes Lasix and digoxin. CT pulmonary angiogram ordered because of elevated D-dimer and is unremarkable. Results discussed with the patient. He declines admission. A caregiver will be at his home at 2030 this evening and he greatly prefers going home. Oxygen saturation has remained in the mid 90s. Lasix 20 mg IV given for pulmonary edema. I will increase his Lasix for to 20 mg twice a day for the next 2 days and have him follow up with his primary care physician in 2 days. Differential Diagnosis: Differential diagnosis includes though it is not limited to pneumonia, pneumothorax, pulmonary embolism, aortic dissection, pericarditis, acute coronary syndrome. - Data Points Laboratory Results: Laboratory Results 03/03/18 16:10 03/03/18 16:10 03/03/18 03/03/18 03/03/18 16:10 16:10 16:10 WBC RBC Hgb Hct MCV MCH MCHC RDW Plt Count MPV Neut % (Auto) Lymph % (Auto) Dooly % (Auto) Eos % (Auto) Baso % (Auto) Nucleat RBC Rel Count Absolute Neuts (auto) Absolute Lymphs (auto) Absolute Monos (auto) Absolute Eos (auto) Absolute Basos (auto) Absolute Nucleated RBC Immature Gran % Immature Gran # D-Dimer 1.47 ug/mLFEU H ug/mLFEU (0.00-0.50) Sodium 140 mEq/L mEq/L (135-145) Potassium 4.5 mEq/L mEq/L (3.3-5.0) Chloride 103 mEq/L mEq/L (97-110) Carbon Dioxide 25 mEq/l mEq/l (22-31) Anion Gap 12 mEq/L mEq/L (8-16) BUN 25 mg/dL H mg/dL (7-23) Creatinine 0.9 mg/dL mg/dL (0.7-1.3) Estimated GFR > 60 Glucose 101 mg/dL H mg/dL (70-100) Calcium 8.8 mg/dL mg/dL (8.5-10.4) NT-Pro-B Natriuret Pep 3890 pg/mL H pg/mL (0-125) Digoxin 0.8 ng/mL ng/mL (0.8-2.0) 03/03/18 16:10 WBC 9.99 10^3/uL H 10^3/uL (3.80-9.50) RBC 5.19 10^6/uL 10^6/uL (4.40-6.38) Hgb 13.6 g/dL L g/dL (13.7-17.5) Hct 43.0 % % (40.0-51.0) MCV 82.9 fL fL (81.5-99.8) MCH 26.2 pg L pg (27.9-34.1) MCHC 31.6 g/dL L g/dL (32.4-36.7) RDW 18.0 % H % (11.5-15.2) Plt Count 218 10^3/uL 10^3/uL (150-400) MPV 9.9 fL fL (8.7-11.7) Neut % (Auto) 76.6 % H % (39.3-74.2) Lymph % (Auto) 9.5 % L % (15.0-45.0) Dooly % (Auto) 10.0 % % (4.5-13.0) Eos % (Auto) 2.3 % % (0.6-7.6) Baso % (Auto) 0.5 % % (0.3-1.7) Nucleat RBC Rel Count 0.0 % % (0.0-0.2) Absolute Neuts (auto) 7.65 10^3/uL H 10^3/uL (1.70-6.50) Absolute Lymphs (auto) 0.95 10^3/uL L 10^3/uL (1.00-3.00) Absolute Monos (auto) 1.00 10^3/uL H 10^3/uL (0.30-0.80) Absolute Eos (auto) 0.23 10^3/uL 10^3/uL (0.03-0.40) Absolute Basos (auto) 0.05 10^3/uL 10^3/uL (0.02-0.10) Absolute Nucleated RBC 0.00 10^3/uL 10^3/uL (0-0.01) Immature Gran % 1.1 % % (0.0-1.1) Immature Gran # 0.11 10^3/uL H 10^3/uL (0.00-0.10) D-Dimer Sodium Potassium Chloride Carbon Dioxide Anion Gap BUN Creatinine Estimated GFR Glucose Calcium NT-Pro-B Natriuret Pep Digoxin Departure - Departure Disposition: Home, Routine, Self-Care Clinical Impression: Acute exacerbation of congestive heart failure Qualifiers: Heart failure type: unspecified Qualified Code(s): I50.9 - Heart failure, unspecified Condition: Good Instructions: Heart Failure (ED) Additional Instructions: Increase Lasix to 20 mg twice a day for 2 days. Return for worsening symptoms or any concerns. Follow-up with your physician in 2 days. Referrals: Palomo Cary MD [Medical Doctor] - As per Instructions
--- NOTE | 2018-03-03 16:02 | CPEKG ---
Heart Rate: 63 RR Interval: 952 P-R Interval: 192 QRSD Interval: 102 QT Interval: 356 QTC Interval: 365 P Aguilar: 21 QRS Aguilar: 53 T Wave Aguilar: 240 EKG Severity - NORMAL ECG - EKG Impression: SINUS RHYTHM Electronically Signed By: Marjorie Lopez 03-Mar-2018 20:30:38
[2018-03-03 16:22] LABS: PLATELET COUNT 218 10^3/uL (150-400)
[2018-03-03] MEDS ORDERED: IOPAMIDOL (ISOVUE 370) 100 ML BTL IV ONE (16:50)
[2018-03-03] MEDS ORDERED: FUROSEMIDE 20 MG/2 ML VIAL IVP ONE (18:18)
[2018-03-03 19:06] VITALS: BP 158/98
== END 2018-03-03 19:57 | disposition home or self-care (01) ==
LOC: EDUNIT#
DX: I50.9 Heart failure, unspecified (principal); I25.810 Atherosclerosis of coronary artery bypass graft(s) without angina pectoris; I25.2 Old myocardial infarction; J45.909 Unspecified asthma, uncomplicated; Z87.891 Personal history of nicotine dependence
CPT/HCPCS: 71046; 71275; 93005; 96374; 99285; J1940; Q9967; 84484-PO

== ENCOUNTER 2018-08-13 00:35 | Emergency (ER) | payer OTHER, MEDICAID ==
[2018-08-13 00:50] VITALS: BP 110/66
--- NOTE | 2018-08-13 01:08 | EDPHY ---
H & P Stated Complaint: Insomnia Time Seen by Provider: 08/13/18 00:42 HPI/ROS: Chief Complaint: Insomnia HPI: 60-year-old male with a history of insomnia is presenting this morning complaining that he has not been able to sleep the last 13 days. He is actually seen by primary care physician last week and given a prescription for Ambien but has not been able to get this filled as his home health nurse is not brought to an. Otherwise has been in his usual state health. Patient states that he has been suffering from insomnia since he was a teenager. No fevers or chills. No chest pain shortness of breath. No nausea or vomiting. He does have a history of stroke and hypertension in the past and peripheral vascular disease. ROS: 10 systems were reviewed and were negative except those elements noted in the HPI. PMH: Insomnia, peripheral vascular disease, hypertension, CVA Social History: No smoking, no alcohol, no recreational drug use Family History: non-contributory Physical Exam: Gen: Awake, Alert, No Distress HEENT: Nose: no rhinorrhea Eyes: PERRLA, EOMI Mouth: Moist mucosa Neck: Supple, no JVD Chest: nontender, lungs clear to auscultation Heart: S1, S2 normal, no murmur Abd: Soft, non-tender, no guarding Back: no CVA tenderness, no midline tenderness Ext: no edema, non-tender Skin: no rash Neuro: CN II-XII intact, Sensation grossly intact, left-sided weakness at baseline secondary to CVA in the past, no acute findings - Personal History Current Tetanus/Diphtheria Vaccine: No Current Tetanus Diphtheria and Acellular Pertussis (TDAP): No Tetanus Vaccine Date: ALLERGY - Medical/Surgical History Hx Asthma: Yes Hx Chronic Respiratory Disease: Yes Hx Diabetes: No Hx Cardiac Disease: Yes Hx Renal Disease: No Hx Cirrhosis: No Hx Alcoholism: No Hx HIV/AIDS: No Hx Splenectomy or Spleen Trauma: No Other PMH: FEMORAL BYPASS, CVA left weakness, CABG, MD, CHF, ORTHO (femur fx), W/C bound, GI Bleed, Left Ankle broken, - Social History Smoking Status: Former smoker Constitutional: Initial Vital Signs Temperature (C) 36.7 C 08/13/18 00:47 Heart Rate 83 08/13/18 00:47 Respiratory Rate 18 11/29/18 00:47 Blood Pressure 110/66 11/29/18 00:47 O2 Sat (%) 91 L 08/13/18 00:47 O2 Delivery Mode Room Air Allergies/Adverse Reactions: Horse/Equine Containing Products [Horse/Equine Product Derivatives] Allergy ( Severe, Verified 08/13/18 00:42) SWELLING Tetanus Vaccines and Toxoid [Tetanus] Allergy (Severe, Verified 08/13/18 00:42) SWELLING bee pollen [Bee Pollen] Allergy (Intermediate, Verified 08/13/18 00:42) SWELLING gabapentin Allergy (Verified 08/13/18 00:42) Other-Enter Comments Home Medications: Medication Instructions Recorded Atorvastatin Calcium [Lipitor 40 40 mg PO HS 02/12/15 mg (*)] Baclofen [Baclofen 10 mg (*)] 5 mg PO TID 02/12/15 Digoxin [Lanoxin 0.125 mg] 0.125 mg PO HS 02/12/15 Metoprolol Tartrate [Lopressor 50 125 mg PO BID@08,16 02/12/15 mg (*)] Nitroglycerin [Nitrostat 0.4 mg 0.4 mg SL PRN PRN 02/12/15 (*)] morphINE SR [Ms Contin/Oramorph 15 15 mg PO BID 02/12/15 mg (*)] Fluticasone/Salmeter 250/50Mcg 2 puffs IH BID 11/27/15 [Advair 250/50 (*)] Furosemide [Lasix 20 MG (*)] 20 mg PO DAILY 11/27/15 Losartan Potassium [Cozaar 25 mg 25 mg PO HS 11/27/15 (*)] Nystatin [Nyamyc] 100,000 units TP BID PRN 11/27/15 Topiramate 50 mg PO DAILY@12 11/27/15 FLUoxetine [Prozac 20 MG (*)] 20 mg PO DAILY 04/10/16 Propylene Glycol/Peg 400/Pf 1 each OP DAILY PRN 04/10/16 [Systane 0.3-0.4% Eye Drops] Zolpidem Tartrate [Ambien] 08/13/18 traZODone [traZODONE 50MG (*)] 08/13/18 Medical Decision Making ED Course/Re-evaluation: 60-year-old male presenting with insomnia. Patient states he has not slept in 13 days. He has been seen recently for this and prescribed medications but is not able to get these yet. Is otherwise without complaint his current state health. Plan will be to discharge with an Ambien 4 in to take at home. Follow up with primary care. Departure - Departure Disposition: Home, Routine, Self-Care Clinical Impression: Insomnia Condition: Good Instructions: Insomnia (ED) Additional Instructions: You may take Ambien 1 at bedtime to help you sleep. Follow up with primary care physician in 2-3 days for further evaluation. Referrals: Patient,NotPresent [Primary Care Provider] - As per Instructions
[2018-08-13] MEDS ORDERED: ZOLPIDEM TARTRATE 5 MG TAB PO ONE (01:14)
== END 2018-08-13 03:33 | disposition home or self-care (01) ==
LOC: EDUNIT#
DX: G47.00 Insomnia, unspecified (principal); I10 Essential (primary) hypertension; I73.9 Peripheral vascular disease, unspecified; I63.9 Cerebral infarction, unspecified; Z95.5 Presence of coronary angioplasty implant and graft

== ENCOUNTER 2018-10-21 15:47 | Observation (INO) | payer OTHER, MEDICAID ==
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
[2018-10-21] MEDS ORDERED: ACETAMINOPHEN 325 MG TAB PO PRN (18:31)
[2018-10-21] MEDS ORDERED: ONDANSETRON DISINTEGRATING 4 MG TAB PO PRN (18:31)
[2018-10-21] MEDS ORDERED: ONDANSETRON 4 MG/2 ML VIAL IVP PRN (18:31)
--- NOTE | 2018-10-21 19:00 | PDGENHP ---
<Milvia Levin - Last Filed: 10/21/18 19:16> History and Physical - Chief Complaint Mechanical fall with injury - History of Present Illness HPI: 68 y/o male with history of left spastic hemiplegia and wheelchair bound presents to the ER after sustaining a mechanical fall with injury. He reports he was leaving [facility] and because it was snowing, he didn't realize there was no wheelchair ramp off the curb - he went off the curb, fell out of his wheelchair and hitting the left side of his forehead and left shoulder. He is anticoagulated on Eliquis. Head CT reveal no acute process. Shoulder x-ray of left shoulder showed no acute fracture however a "high-riding" humeral head with secondary features suggestive of a chronic rotator cuff tear. He was to be discharged with head injury instructions after hitting his head however his wheelchair is locked up at [facility] and not available. He is being admitted for observation and monitoring. Past Medical History 1. Left spastic hemiplegia secondary to CVA (2012) 2. Atrial fibrillation 3. COPD 4. Chronic pain 5. Obesity 6. CAD s/p CABG 7. Peripheral vascular disease, s/p bypass Past Surgical History 1. CABG Social 1. Lives alone, has caregivers assist him, wheelchair-bound 2. Former smoker. Denies illicit drug use. Rarely drinks alcohol. History Information - Allergies/Home Medication List Allergies/Adverse Reactions: Horse/Equine Containing Products [Horse/Equine Product Derivatives] Allergy ( Severe, Verified 08/13/18 00:42) SWELLING Tetanus Vaccines and Toxoid [Tetanus] Allergy (Severe, Verified 08/13/18 00:42) SWELLING bee pollen [Bee Pollen] Allergy (Intermediate, Verified 08/13/18 00:42) SWELLING gabapentin Allergy (Verified 08/13/18 00:42) Other-Enter Comments Home Medications: Atorvastatin Calcium [Lipitor 40 mg (*)] 40 mg PO HS 02/12/15 [Last Taken ] Baclofen [Baclofen 10 mg (*)] 5 mg PO TID 02/12/15 [Last Taken 05/24/16] Digoxin [Lanoxin 0.125 mg] 0.125 mg PO HS 02/12/15 [Last Taken 05/24/16] Metoprolol Tartrate [Lopressor 50 mg (*)] 125 mg PO BID@02/12/15 [Last Taken 05/24/16] Nitroglycerin [Nitrostat 0.4 mg (*)] 0.4 mg SL PRN PRN 02/12/15 [Last Taken ] morphINE SR [Ms Contin/Oramorph 15 mg (*)] 15 mg PO BID 02/12/15 [Last Taken 05/31] Fluticasone/Salmeter 250/50Mcg [Advair 250/50 (*)] 2 puffs IH BID 11/27/15 [ Last Taken 05/24/16] Furosemide [Lasix 20 MG (*)] 20 mg PO DAILY 11/27/15 [Last Taken 05/24/16] Losartan Potassium [Cozaar 25 mg (*)] 25 mg PO HS 11/27/15 [Last Taken 05/24/16] Nystatin [Nyamyc] 100,000 units TP BID PRN 11/27/15 [Last Taken 05/24/16] Topiramate 50 mg PO DAILY@12 11/27/15 [Last Taken 05/24/16] FLUoxetine [Prozac 20 MG (*)] 20 mg PO DAILY 04/10/16 [Last Taken 05/24/16] Zolpidem Tartrate [Ambien] 08/13/18 [Last Taken Unknown] traZODone [traZODONE 50MG (*)] 08/13/18 [Last Taken Unknown] Eliquis 10/21/18 [Last Taken Unknown] I have personally reviewed and updated: family history, medical history, social history, surgical history Past Medical History: See HPI list - Surgical History Additional surgical history: See HPI list - Family History Positive for: myocardial infarction - Social History Smoking Status: Former smoker Alcohol Use: Rarely Drug Use: None Review of Systems Review of Systems: ROS: 10pt was reviewed & negative except for what was stated in HPI & below Constitutional: Reports: recent injury EENMT: Reports: no symptoms Cardiac: Reports: no symptoms Respiratory: Reports: no symptoms Gastrointestinal: Reports: no symptoms Genitourinary: Reports: no symptoms Muscolosketal: Reports: joint pain (Left shoulder), muscle pain Skin: Reports: no symptoms Neurological: Reports: pre-existing deficit Hematologic/Lymphatic: Reports: no symptoms Immunologic/Allergy: Reports: other (See allergy list) Physical Exam Physical Exam: Imaging was reviewed. Case discussed with admitting physician, Dr Greta Hyatt. Temp Pulse Resp BP Pulse Ox 36.4 C 81 18 118/75 95 10/21/18 16:04 10/21/18 18:01 10/21/18 18:01 10/21/18 18:01 10/21/18 18:02 Constitutional: no apparent distress, appears nourished, obese, uncomfortable ( Left shoulder) Eyes: PERRL, anicteric sclera, EOMI Ears, Nose, Mouth, Throat: moist mucous membranes, hearing normal, ears appear normal, no oral mucosal ulcers Cardiovascular: regular rate and rhythym, no murmur, rub, or gallop, No edema Peripheral Pulses: 1+: dorsalis-pedis (R) (Radial 1+), dorsalis-pedis (L) ( Radial 1+) Respiratory: no respiratory distress, no rales or rhonchi, clear to auscultation Gastrointestinal: normoactive bowel sounds, soft, non-tender abdomen, no palpable masses Genitourinary: no bladder fullness, no bladder tenderness Skin: warm, normal color, no rashes or abrasions, no fluctuance, no induration, No mottled Musculoskeletal: joint tenderness, pain with ROM (Left shoulder. No tenderness to elbow or wrist and can flex joints. However, does not want to move shoulder. ) Neurologic: AAOx3, CN II-XII Intact Psychiatric: interacting appropriately, not anxious, not encephalopathic, thought process linear Lymph, Heme, Immunologic: no cervical LAD, no supraclavicular LAD Assessment & Plan Plan: 68 y/o male with history of CABG, a-fib, CAD, CVA, wheelchair bound and anticoagulated with Eliquis fell out of his wheelchair after hitting a curb, striking the left portion of his forehead and his left shoulder. Denies pain anywhere else. No discomfort to left hand, wrist, and elbow. Denies headache or vision changes. No chest pains, palpitations, nausea. 1. Head injury secondary to mechanical fall -Head CT negative for any acute process -Neuro checks Qshift -Continue to monitor 2. Left shoulder: x-ray reveals no acute fracture however does mention a "high- riding" humeral head with secondary features suggestive of a chronic rotator cuff tear. -Ice pack to shoulder -Scheduled Tylenol Q8H for pain control -Suggested for pt to f/u outpatient to his local orthopedist for a further evaluation of his shoulder 3. Atrial fibrillation: on eliquis and will continue during his time here in the hospital. 4. Left-sided hemiplegia -Wheelchair bound; his wheelchair is locked up at [facility]. Case management attempted to contact them but they were closed. They will continue to contact them tomorrow for discharge. -Case management consulted -Pt will need assistance with transfers Diet: Cardiac Code: Full VTE ppx: SCDs, Eliquis Dispo: Admit to obs <Greta Hyatt - Last Filed: 10/21/18 19:49> History and Physical - History of Present Illness Review of Systems Review of Systems: Physical Exam Physical Exam: Temp Pulse Resp BP Pulse Ox 36.4 C 81 18 118/75 95 10/21/18 16:04 10/21/18 18:01 10/21/18 18:01 10/21/18 18:01 10/21/18 18:02 Assessment & Plan Assessment: Contusion of left shoulder (Acute) Fall (Acute) Plan: Care plan reviewed with JILLIAN Levin, patient seen and evaluated independently. Agree with care plan as outlined above ,please see separate H&P for further details.
--- NOTE | 2018-10-21 19:53 | HOSPPROG ---
Hospitalist Progress Note Assessment/Plan: 68 y/o male with history of CABG, a-fib, CAD, CVA, wheelchair bound and anticoagulated with Eliquis fell out of his wheelchair after hitting a curb and injuring his head and shoulder # closed head injury: without any abnormalities on head CT appreciated, patient is at baseline neurologically, given chronic AC will monitor overnight to be sure no neurologic deficits develope # left sided hemiplegia: unfortunately since patient taken urgently to ER, patients wheelchair is locked up at [facility] and will not be available until morning, case management is aware # shoulder pain: with imaging c/w chronic rotator cuff tear, pain is controlled , OP pt/ot likely would be of benefit # paroxysmal a fib: continue eliquis, rate controlled currently # observation status # Patient new to my care. Old records reviewed and summarized as above. Care plan reviewed with ER doctor and JILLIAN Levin, please see her separate H&P for further details. Objective: Vital Signs Temp Pulse Resp BP Pulse Ox 36.4 C 81 18 118/75 95 10/21/18 16:04 10/21/18 18:01 10/21/18 18:01 10/21/18 18:01 10/21/18 18:02 ICD10 Worksheet Patient Problems: Problems Problem Status Onset Heart disease Active Morbid obesity Active Dyslipidemia Active CAD - Coronary arteriosclerosis Active Essential hypertension Active Atrial fibrillation and flutter Active Gout Active Peripheral vascular disease Active Ulcer of lower extremity Active Cough Acute COPD exacerbation Acute Viral syndrome Acute Chronic Disease Mgmt/Transitional Care Acute Chest pain Acute Upper GI bleed Acute Laceration of left leg Acute Abrasion of left hand Acute Contusion of left hand Acute Contusion of left leg Acute Contusion of left shoulder Acute Fall Acute
[2018-10-21] MEDS: ACETAMINOPHEN 500 MG TAB PO SCH (21:58)
[2018-10-22] MEDS: ACETAMINOPHEN 500 MG TAB PO SCH ×2 (03:46→12:06)
[2018-10-22 07:25] VITALS: BP 138/84
[2018-10-22] MEDS ORDERED: NITROGLYCERIN 0.4 MG BTL SL PRN (07:46)
[2018-10-22] MEDS ORDERED: NYSTATIN POWDER 15 GM BTL TP PRN (07:46)
[2018-10-22] MEDS ORDERED: traZODone 50 MG TAB PO PRN (07:46)
--- NOTE | 2018-10-22 08:22 | HOSPPROG ---
Hospitalist Progress Note Assessment/Plan: 68 y/o male with history of CABG, a-fib, CAD, CVA, wheelchair bound and anticoagulated with Nicki fell out of his wheelchair after hitting a curb and injuring his head and shoulder. First encounter, chart reviewed. *CHI -CT of head shows nothing acute -on OAC -he is alert and oriented *left side hemiplegia -patient is wheelchair bound and his wheelchair is locked up at [facility]- to be available today -stroke in 2013 -overall is very independent *shoulder pain -imaging shows chronic rotator cuff tear -no c/o this today *PAF -resumed OAC -rate controlled *plan: CM to help arrange for him to get his wheelchair and then return home w close f/u with [facility] Subjective: Te has no complaints. Objective: Vital Signs Temp Pulse Resp BP Pulse Ox 36.7 C 81 16 138/84 H 90 L 10/22/18 07:24 10/22/18 07:24 10/22/18 07:24 10/22/18 07:24 10/22/18 07:24 10/21/18 10/22/18 10/23/18 05:59 05:59 05:59 Intake Total 350 Balance 350 - Physical Exam Constitutional: chronically ill appearing Eyes: PERRL Ears, Nose, Mouth, Throat: hearing normal Cardiovascular: regular rate and rhythym Respiratory: no respiratory distress Skin: warm, other (has redness to left calvin, patient said he burned himself there, scab to left knee area) Musculoskeletal: generalized weakness (paralysis to left side) Neurologic: AAOx3 Psychiatric: interacting appropriately, not anxious, not encephalopathic ICD10 Worksheet Patient Problems: Problems Problem Status Onset Contusion of left shoulder Acute Fall Acute Atrial fibrillation and flutter Active CAD - Coronary arteriosclerosis Active Dyslipidemia Active Essential hypertension Active Gout Active Heart disease Active Morbid obesity Active Peripheral vascular disease Active Ulcer of lower extremity Active Abrasion of left hand Acute COPD exacerbation Acute Chest pain Acute Chronic Disease Mgmt/Transitional Care Acute Contusion of left hand Acute Contusion of left leg Acute Cough Acute Laceration of left leg Acute Upper GI bleed Acute Viral syndrome Acute
[2018-10-22] MEDS ORDERED: BACLOFEN 10 MG TAB PO SCH (09:00)
[2018-10-22] MEDS ORDERED: FLUTICASONE/SALMETER 250/50MCG DISKUS IH SCH (09:00)
[2018-10-22] MEDS ORDERED: FUROSEMIDE 20 MG TAB PO SCH (09:00)
[2018-10-22] MEDS ORDERED: Herbals/Supplements -Info Only PO SCH (09:00)
[2018-10-22] MEDS ORDERED: METOPROLOL TARTRATE 50 MG TAB PO SCH (09:00)
[2018-10-22] MEDS ORDERED: morphINE SR 15 MG TAB PO SCH (09:00)
[2018-10-22] MEDS ORDERED: FLUoxetine 20 MG CAP PO SCH (09:00)
[2018-10-22] MEDS ORDERED: TOPIRAMATE 25 MG TAB PO SCH (09:00)
--- NOTE | 2018-10-22 11:05 | ASMTLACE ---
JAMESE Length of stay for Answers: 2 days current admission Acuity / Level of Answers: No Care: Did the patient have an inpatient admission? Comorbidities - select Answers: Cerebrovascular disease all that apply (CVA, TIA, aneurysms, vasc ular dementia) Congestive heart failure Opioid dependence / Chronic pain Peripheral vascular disease Previous myocardial infarction Other Notes: HTN # of Emergency department Answers: 1-2 visits in the last 6 months Score: 13 Date Signed: 10/22/2018 11:04 AM Electronically Signed By:Therese Stoner
--- NOTE | 2018-10-22 11:10 | WOCRNPDOC ---
WOCRN Advanced Assessment Note - Skin Integrity Problem, Advanced Assess Left Heel Dressing Type: Open to Air Zena Wound Tissue: Blanching, Erythema Skin Integrity Problem Comment: Area is blanching. No pressure injury noted. Left Lateral Ankle Pressure Injury Dressing Type: Open to Air Zena Wound Tissue: Blanching, Erythema Wound Bed Constitution: Scab Site Measurement - Head-to-Toe Length X Width X Depth (cm): 0.3x0.5xscab Pressure Injury Stage: Stage 2 Pressure Injury Present on Admit: Yes Skin Integrity Problem Comment: Healing wound. No concerns. May leave SURGERY TEACHER. Left First Toe Dressing Type: Open to Air Integumentary Issue Intervention: Dressing Applied, Mechanical Debridement Zena Wound Tissue: Blanching, Erythema Wound Bed Constitution: Granulation Tissue Site Measurement - Head-to-Toe Length X Width X Depth (cm): 1.7x1.7x0.1 Skin Integrity Problem Comment: Healing wound that at first presented with a partially intact serous filled blister. The whole toe is erythematic, but the erythema doesnt extend into the foot. May improve with local wound care as wound did not appear to have been cleaned and debrided for a while. Education done with patient about making sure erythema is not spreading and to follow up with this wound at [facility]. Cleaned with ns and gauze. Silvasorb applied to wound bed and covered with allevyn life. Reported to Trisha Up NP and Bekah RIOS.
--- NOTE | 2018-10-22 12:03 | GDS ---
[f rep st] DISCHARGE SUMMARY DISCHARGE DIAGNOSES: 1. Closed head injury. 2. Left-sided hemiplegia, secondary from a stroke. 3. Shoulder pain. 4. Paroxysmal atrial fibrillation. HISTORY OF PRESENT ILLNESS: Briefly, Te Mehta is a very nice, 68-year-old male with a history of coronary artery bypass grafting, atrial fibrillation, coronary disease, and CVA, who is wheelchair hannah und. He is anticoagulated with Xarelto. He fell out of his wheelchair after hitting a curb and hit his head and shoulder. He had a CT of his head that showed nothing acute. An x-ray was performed of the shoulder that showed a chronic rotator cuff tear. He will be discharged to home. The plan is f or Case Management to get him to [facility] to get his wheelchair and then transferred back to h is home. HOSPITAL COURSE PER PROBLEM: 1. Closed head injury. CT showed nothing acute. He is alert and oriented. 2. Left-sided hemiplegia. This is residual from a stroke in 2012. He is actually quite independent . Does get some home care. 3. Shoulder pain. His imaging shows a chronic rotator cuff tear. 4. Paroxysmal atrial fibrillation. It is rate controlled. Resumed his Xarelto. DISCHARGE CONDITION: Stable. Blood pressure is 138/84, heart rate of 81, respiratory rate of 16, O2 sats on room air 95%, temperature is 36.7 Celsius. MEDICATIONS AT DISCHARGE: Please see the EMR. DISCHARGE INSTRUCTIONS: 1. Ice the shoulder area where it is sore. 2. Return to the ER if he has worsening symptoms including headache. 3. Follow up with his orthopedist for further evaluation of his shoulder injury. 4. He has a wound to the great toe. Directions have been written out how to take care of this. Rec ommending that he follow up with [facility] for a potential infection. Copy requested to: [facility] /[id number]/MODL
--- NOTE | 2018-10-22 12:17 | ASMTCMCOM ---
CM Note CM Note Notes: Spoke w/pt re; returning to [facility] for wheel chair and drs appt. Pt asked CM to call sister Juventino [phone], "she knows everything" CM called pt's sister, she states should use [facility] to transport pt to because he has an appt at 2pm and he can get his wheelchair that was left there when he fell out of it. Sister states that the PC will get him home. CM spoke with Velia at the PC, she has the wheelchair and will make sure pt gets home. CM arranged transport with [facility] for 1:30. DC Plan: Independent Date Signed: 10/22/2018 12:02 PM Electronically Signed By:Zohra Izaguirre RN
[2018-10-22] MEDS ORDERED: RIVAROXABAN 20 MG TAB PO SCH (21:00)
[2018-10-22] MEDS ORDERED: LOSARTAN POTASSIUM 25 MG TAB PO SCH (21:00)
[2018-10-22] MEDS ORDERED: RIVAROXABAN 10 MG TAB PO SCH (21:00)
[2018-10-22] MEDS ORDERED: ATORVASTATIN CALCIUM 40 MG TAB PO SCH (21:00)
== END 2018-10-22 13:44 | disposition home health service (06) ==
LOC: EDUNIT# → F3E 20:05
PROVIDERS: ADMIT Internal Medicine; ATTEND Internal Medicine
DX: S09.8XXA Other specified injuries of head, initial encounter (principal); V00.812A Wheelchair (powered) colliding with stationary object, initial encounter; Y92.480 Sidewalk as the place of occurrence of the external cause; Y99.8 Other external cause status; L97.521 Non-pressure chronic ulcer of other part of left foot limited to breakdown of skin; I69.354 Hemiplegia and hemiparesis following cerebral infarction affecting left non-dominant side; Z99.3 Dependence on wheelchair; M75.112 Incomplete rotator cuff tear or rupture of left shoulder, not specified as traumatic; I48.0 Paroxysmal atrial fibrillation; Z79.01 Long term (current) use of anticoagulants; I10 Essential (primary) hypertension; I25.10 Atherosclerotic heart disease of native coronary artery without angina pectoris; Z95.1 Presence of aortocoronary bypass graft; I50.9 Heart failure, unspecified; J44.9 Chronic obstructive pulmonary disease, unspecified; Z87.891 Personal history of nicotine dependence; E66.09 Other obesity due to excess calories; Z95.820 Peripheral vascular angioplasty status with implants and grafts
CPT/HCPCS: 70450; 73030; 97165; 99285; G0378

== ENCOUNTER 2018-10-31 12:34 | Emergency (ER) | payer OTHER, MEDICAID ==
--- NOTE | 2018-10-31 13:10 | EDPHY ---
H & P Stated Complaint: L KNEE PAIN Time Seen by Provider: 10/31/18 12:51 HPI/ROS: CHIEF COMPLAINT: Left knee pain HISTORY OF PRESENT ILLNESS: 68-year-old male medical history significant for CVA, left hemiplegia, wheelchair-bound, lives by himself, states that when his in-home care provider was there yesterday evening she was transferring him to bed and his left knee be came talked underneath him, hyperflexing the knee and felt immediate pain to the anteromedial aspect of the left knee. He has reproducible pain with palpation and range of motion. He does not bear weight at his baseline as he is wheelchair-bound. No fall from height. Denies: Head injury, midline C-spine pain or injury, syncope, paresthesia distally. REVIEW OF SYSTEMS: 10 systems reviewed and negative with the exception of the elements mentioned in the history of present illness PAST MEDICAL & SURGICAL HISTORY: CVA. Left hemiplegia. SOCIAL HISTORY: Lives by himself. Has in-home care support PHYSICAL EXAM (Prior to examination, patient consented to physical exam, hands were washed and my usual and customary physical exam procedures followed) 1) GENERAL: Well-developed, well-nourished, alert and oriented. Appears to be in no acute distress. 2) HEAD: Normocephalic, atraumatic 3) HEENT: Pupils equal, round, reactive to light bilaterally. Sclera anicteric. Nasopharynx, oropharynx, clear, no lesions. MoistDry mucous membranes. Ears bilaterally with normal tympanic membranes. 4) NECK: Full range of motion, no meningeal signs. 5) LUNGS: Clear auscultation bilaterally, no wheezes, no rhonchi, no retractions. 6) HEART: Regular rate and rhythm, no murmur, no heave, no gallop. 7) ABDOMEN: No guarding, no rebound, no focal tenderness, negative McBurney's, negative Roldan's, negative Rovsing's, negative peritoneal sign, 8) MUSCULOSKELETAL: Left lower extremity: Tender to palpation anteromedial aspect of left knee with no visible signs of trauma. No effusion. No discoloration. Normal color. Normal temperature. Proximally distally nontender with soft compartments throughout. No hip pain. 9) BACK: No obvious trauma, no visual or palpable abnormality. 10) SKIN: No rash, no petechiae. 11) Psychiatric: Patient is oriented X 3, there is no agitation. DIFFERENTIAL DIAGNOSIS: In no particular order including but not limited to fracture, sprain, strain, dislocation - Personal History Current Tetanus/Diphtheria Vaccine: No Tetanus Vaccine Date: ALLERGY - Medical/Surgical History Hx Asthma: Yes Hx Chronic Respiratory Disease: Yes Hx Diabetes: No Hx Cardiac Disease: Yes Hx Renal Disease: No Hx Cirrhosis: No Hx Alcoholism: No Hx HIV/AIDS: No Hx Splenectomy or Spleen Trauma: No Other PMH: FEMORAL BYPASS, CVA left weakness, CABG, CT, CHF, ORTHO (femur fx), W/C bound, GI Bleed, Left Ankle broken, - Social History Smoking Status: Former smoker Constitutional: Initial Vital Signs Temperature (C) 36.3 C 10/31/18 12:41 Heart Rate 71 10/31/18 12:41 Respiratory Rate 16 10/31/18 12:41 Blood Pressure 113/84 H 10/31/18 12:41 O2 Sat (%) 91 L 10/31/18 12:41 O2 Delivery Mode Room Air Allergies/Adverse Reactions: Horse/Equine Containing Products [Horse/Equine Product Derivatives] Allergy ( Severe, Verified 08/13/18 00:42) SWELLING Tetanus Vaccines and Toxoid [Tetanus] Allergy (Severe, Verified 08/13/18 00:42) SWELLING bee pollen [Bee Pollen] Allergy (Intermediate, Verified 08/13/18 00:42) SWELLING gabapentin Allergy (Verified 08/13/18 00:42) Other-Enter Comments Home Medications: Medication Instructions Recorded Atorvastatin Calcium [Lipitor 40 40 mg PO HS 02/12/15 mg (*)] Baclofen [Baclofen 10 mg (*)] 10 mg PO BID 02/12/15 Metoprolol Tartrate [Lopressor 50 125 mg PO DAILY 02/12/15 mg (*)] Nitroglycerin [Nitrostat 0.4 mg 0.4 mg SL PRN PRN 02/12/15 (*)] morphINE SR [Ms Contin/Oramorph 15 15 mg PO BID 02/12/15 mg (*)] Fluticasone/Salmeter 250/50Mcg 2 puffs IH BID 11/27/15 [Advair 250/50 (*)] Furosemide [Lasix 20 MG (*)] 20 mg PO DAILY 11/27/15 Losartan Potassium [Cozaar 25 mg 25 mg PO HS 11/27/15 (*)] Nystatin [Nyamyc] 100,000 units TP BID PRN 11/27/15 Topiramate 50 mg PO DAILY 11/27/15 FLUoxetine [Prozac 20 MG (*)] 20 mg PO DAILY 04/10/16 traZODone [traZODONE 50MG (*)] 50 mg PO HS PRN 08/13/18 Herbals/Supplements -Info Only 1 ea PO DAILY 10/21/18 Rivaroxaban [Xarelto] 20 mg PO HS 10/22/18 Medical Decision Making - Diagnostics Imaging Results: Imaging Impressions Knee X-Ray 10/31/18 12:43 Impression: Negative for acute fracture. Lateral compartment osteoarthritis, severe. Small knee joint effusion.. Images reviewed myself Procedures: Procedure: Splint A Pb wrap splint was applied by ER telecommunications field technician. After application of the splint I returned and re-examined the patient. The splint was adequately immobilizing the joint and distal to the splint the patient's circulation and sensation were intact. Patient shows no signs of compartment syndrome. Was given orthopedic precautions. ED Course/Re-evaluation: The patient was re-evaluated with serial exams old medical records reviewed by myself. The case assembler has been involved in this case as the patient was by himself. I have offered admission however he states that he prefers to be discharged and request to be discharged. He feels he has adequate support at home with his every other day in-home care provider and feels that he is able to perform activities of daily living. His pain is controlled and he has a prescription for analgesia and declines further analgesia prescription or analgesia in the ER. An Pb wrap has been placed on the area and I directed the patient to be cautious with placement of the Pb wrap. Departure - Departure Disposition: Home, Routine, Self-Care Clinical Impression: Left anterior knee pain Condition: Good Instructions: Knee Pain (ED) Additional Instructions: Return to the ER immediately if you experience discoloration, have worsening pain, numbness, tingling, or any other symptoms that concern you. If you received x-rays in the emergency department today, be advised, that ligamentous , tendon, muscular, and other non-bony injury cannot be fully ruled out. Try to keep your affected extremity elevated above the level of your chest, and keep cold packs on the affected area, for the next 48 hours. Referrals: Radames Hugo MD [Medical Doctor] - 2-3 days, call for appt.
[2018-10-31 15:03] VITALS: BP 120/74
--- NOTE | 2018-10-31 17:07 | ASMTCMCOM ---
CM Note CM Note Notes: Pt presented to the Emergency Department with complaints on left knee pain secondary to a failed sit to stand transfer. History includes a CVA in 2013 with residual deficits, left hemiplegia. Pt is wheelchair/bed bound. Pt lives alone. Met with pt to discuss current living arrangements. Pt reports that he is open with [facility] . Pt states he receives services twice daily. He has an aide, Royal, who comes every morning from 08:00-12:00. He has an evening aide, Catie, who comes from 18:00-22:30. He has supplemental weekend help from Doreen Paige (who does his house cleaning) and Radha. He also has a home health assistant, Aliyah. Call placed to Aliyah at [facility] to confirm services. Aliyah verified all services and reports she will increase pt's level of care while he recovering from his knee injury. Pt reports that he is unable to transfer to a wheelchair for the ride home. Pt states he cannot stand or pivot transfer secondary to hemiplegia, brace on foot and knee injury. Pt requires full transfer with barak or multiple person assist. Pt arrived to the Emergency Department via [facility] stretcher. Call placed to [facility] for assistance with transfer home; spoke with Ashutosh. Non-emergent stretcher transport arranged for pt. PCS form completed; copy placed in chart. Update provided to Aliyah. Per Aliyah, pt will have an aide waiting for him at home. CM available for any further issues or concerns. Date Signed: 10/31/2018 05:06 PM Electronically Signed By:Edna Drake RN
== END 2018-10-31 15:03 | disposition home or self-care (01) ==
LOC: EDUNIT#
DX: S89.82XA Other specified injuries of left lower leg, initial encounter (principal); X50.9XXA Other and unspecified overexertion or strenuous movements or postures, initial encounter; Y92.013 Bedroom of single-family (private) house as the place of occurrence of the external cause; Y93.F2 Activity, caregiving, lifting; I69.354 Hemiplegia and hemiparesis following cerebral infarction affecting left non-dominant side; Z99.3 Dependence on wheelchair

== ENCOUNTER 2018-11-05 20:51 | Inpatient (IN) | payer OTHER, MEDICAID ==
[2018-11-05] MEDS ORDERED: NS 1,000 ML IV ONE (20:59)
[2018-11-05 21:18] LABS: PLATELET COUNT 199 10^3/uL (150-400)
[2018-11-05 21:34] LABS: INR 2.56 (0.83-1.16); PROTIME(PATIENT) 27.5 SEC (12.0-15.0)
--- NOTE | 2018-11-05 21:37 | EDPHY ---
H & P Stated Complaint: nausea vomiting blood like stuff all day , dehydration Time Seen by Provider: 11/05/18 20:54 HPI/ROS: HPI The patient presents with vomiting and possible dehydration, brought in by ambulance by paramedics from his home. Visiting nurse was concerned about him, thus called 911. He had 4 episodes of vomiting today which were dark brown. He says he has not had anything to eat since yesterday due to lack of appetite. He says his last bowel movement was 3 days ago. He denies any fever or diarrhea. Says for the last 4 days he has had lower abdominal pain which he describes as achy in mild. His visiting nurse reported that he was short of breath, however he does not feel particularly short of breath currently. He says he has a cough chronically. The patient has a history of a CVA with left- sided hemiplegia and is wheelchair-bound. He also has CAD status post CABG, COPD, chronic pain, paroxysmal atrial fibrillation on Xarelto.. REVIEW OF SYSTEMS 10 systems were reviewed and negative with the exception of the elements mentioned in the history of present illness. PMHx: Atrial fibrillation on Xarelto, COPD, CABG with CAD, chronic pain on morphine, history of CVA with left-sided hemiplegia Soc Hx: Lives at home with a visiting nurse PHYSICAL General Appearance: Alert, no distress Eyes: Pupils equal and round no pallor or injection ENT, Mouth: Mucous membranes dry Respiratory: There are no retractions, lungs are clear to auscultation Cardiovascular: Regular rate and rhythm Gastrointestinal: Abdomen is distended, with left lower quadrant hernia present , nontender Neurological: A&O, left upper extremity contractures Skin: Warm and dry, no rashes Musculoskeletal: Neck is supple non tender Extremities: symmetrical, full range of motion Psychiatric: Patient is oriented X 3, there is no agitation Source: Patient, EMS Exam Limitations: No limitations - Personal History Current Tetanus/Diphtheria Vaccine: No Current Tetanus Diphtheria and Acellular Pertussis (TDAP): No Tetanus Vaccine Date: ALLERGY - Medical/Surgical History Hx Asthma: Yes Hx Chronic Respiratory Disease: Yes Hx Diabetes: No Hx Cardiac Disease: Yes Hx Renal Disease: No Hx Cirrhosis: No Hx Alcoholism: No Hx HIV/AIDS: No Hx Splenectomy or Spleen Trauma: No Other PMH: FEMORAL BYPASS, CVA left weakness, CABG, [place], CHF, ORTHO (femur fx), W/C bound, GI Bleed, Left Ankle broken, - Social History Smoking Status: Former smoker Constitutional: Initial Vital Signs Temperature (C) 36.6 C 11/05/18 20:51 Heart Rate 63 11/05/18 20:51 Respiratory Rate 18 11/05/18 20:51 Blood Pressure 110/70 11/05/18 20:51 O2 Sat (%) 95 11/05/18 20:51 O2 Delivery Mode Room Air Allergies/Adverse Reactions: Horse/Equine Containing Products [Horse/Equine Product Derivatives] Allergy ( Severe, Verified 11/05/18 21:00) SWELLING Tetanus Vaccines and Toxoid [Tetanus] Allergy (Severe, Verified 11/05/18 21:00) SWELLING bee pollen [Bee Pollen] Allergy (Intermediate, Verified 11/05/18 21:00) SWELLING gabapentin Allergy (Verified 11/05/18 21:00) Other-Enter Comments Home Medications: Medication Instructions Recorded Atorvastatin Calcium [Lipitor 40 40 mg PO HS 02/12/15 mg (*)] Baclofen [Baclofen 10 mg (*)] 10 mg PO BID 02/12/15 Metoprolol Tartrate [Lopressor 50 125 mg PO DAILY 02/12/15 mg (*)] Nitroglycerin [Nitrostat 0.4 mg 0.4 mg SL PRN PRN 02/12/15 (*)] morphINE SR [Ms Contin/Oramorph 15 15 mg PO BID 02/12/15 mg (*)] Fluticasone/Salmeter 250/50Mcg 2 puffs IH BID 11/27/15 [Advair 250/50 (*)] Furosemide [Lasix 20 MG (*)] 20 mg PO DAILY 11/27/15 Losartan Potassium [Cozaar 25 mg 25 mg PO HS 11/27/15 (*)] Nystatin [Nyamyc] 100,000 units TP BID PRN 11/27/15 Topiramate 50 mg PO DAILY 11/27/15 FLUoxetine [Prozac 20 MG (*)] 20 mg PO DAILY 04/10/16 traZODone [traZODONE 50MG (*)] 50 mg PO HS PRN 08/13/18 Herbals/Supplements -Info Only 1 ea PO DAILY 10/21/18 Rivaroxaban [Xarelto] 20 mg PO HS 10/22/18 Medical Decision Making - Diagnostics Imaging Results: Imaging Impressions Chest X-Ray 11/05/18 20:57 Impression: Sequela of prior CABG with cardiomegaly, but no congestive heart failure or focal infiltrate. Abdomen CT 11/05/18 21:37 Impression: 1. There is no evidence of an acute small or large bowel obstruction; however, there are persistent ventral wall hernias, as above-detailed similar to 2016. 2. Cholelithiasis, with no secondary evidence of cholecystitis or bile duct dilatation. 3. Cardiomegaly and sequela of prior CABG. 4. Patent aortobifemoral bypass graft with high-grade stenoses of the [place] celiac, SMA, and renal artery ostia, and of the upper abdominal aorta (noted just before the takeoff of the graft). 5. Bilateral nonobstructive nephrolithiasis with chronic mild cortical atrophy. Findings were discussed with Ebony Leone MD at 23:26, on 11/05/2018. Imaging: I viewed and interpreted images myself Differential Diagnosis: This is a 68-year-old man with multiple medical problems including CVA, wheelchair-bound with left-sided hemiparesis, atrial fibrillation which is paroxysmal on Xarelto, CAD status post CABG, COPD who presents from home brought in by ambulance based on multiple concerns from his visiting nurse. The patient was reportedly short of breath, nauseous with dark brown vomitus, dehydrated. Here, vital signs are normal. Patient does appear mildly dehydrated. Abdomen is distended with left lower quadrant hernia of some sort which is nontender. His lungs are clear and he does not appear to be short of breath. He has somewhat slow to respond to questions and seems slightly confused. Differential diagnosis includes upper GI bleed, SBO, gastroenteritis, pneumonia , COPD exacerbation, acute decompensated heart failure. In the emergency department, patient received IV fluids, labs demonstrated elevated BUN and creatinine. Hemoccult of his vomit is positive for blood. Hemoglobin is normal, slightly elevated which I believe is hemoconcentration. Patient felt a bit better after IV fluids. His mental status has improved. Given his elevated BUN and creatinine I feel he requires ongoing fluid hydration. You should be monitored given has Hemoccult-positive emesis. I have discussed the case with Dr. Morataya and we will admit the patient. - Data Points Laboratory Results: Laboratory Results 11/05/18 21:12 02/21/19 21:12 11/05/18 11/05/18 11/05/18 21:12 21:12 21:12 WBC 6.89 10^3/uL 10^3/uL (3.80-9.50) RBC 6.19 10^6/uL 10^6/uL (4.40-6.38) Hgb 16.7 g/dL g/dL (13.7-17.5) Hct 51.6 % H % (40.0-51.0) MCV 83.4 fL fL (81.5-99.8) MCH 27.0 pg L pg (27.9-34.1) MCHC 32.4 g/dL g/dL (32.4-36.7) RDW 17.7 % H % (11.5-15.2) Plt Count 199 10^3/uL 10^3/uL (150-400) MPV 10.5 fL fL (8.7-11.7) Neut % (Auto) 72.9 % % (39.3-74.2) Lymph % (Auto) 7.1 % L % (15.0-45.0) Power % (Auto) 17.0 % H % (4.5-13.0) Eos % (Auto) 1.3 % % (0.6-7.6) Baso % (Auto) 1.0 % % (0.3-1.7) Nucleat RBC Rel Count 0.0 % % (0.0-0.2) Absolute Neuts (auto) 5.02 10^3/uL 10^3/uL (1.70-6.50) Absolute Lymphs (auto) 0.49 10^3/uL L 10^3/uL (1.00-3.00) Absolute Monos (auto) 1.17 10^3/uL H 10^3/uL (0.30-0.80) Absolute Eos (auto) 0.09 10^3/uL 10^3/uL (0.03-0.40) Absolute Basos (auto) 0.07 10^3/uL 10^3/uL (0.02-0.10) Absolute Nucleated RBC 0.00 10^3/uL 10^3/uL (0-0.01) Immature Gran % 0.7 % % (0.0-1.1) Immature Gran # 0.05 10^3/uL 10^3/uL (0.00-0.10) RBC/WBC/PLT Morphology TNP Platelet Estimate TNP PT 27.5 SEC H SEC (12.0-15.0) INR 2.56 H (0.83-1.16) APTT 45.7 SEC H SEC (23.0-38.0) Sodium 136 mEq/L mEq/L (135-145) Potassium 3.7 mEq/L mEq/L (3.5-5.2) Chloride 94 mEq/L L mEq/L (97-110) Carbon Dioxide 29 mEq/l mEq/l (22-31) Anion Gap 13 mEq/L mEq/L (6-14) BUN 60 mg/dL H mg/dL (7-23) Creatinine 1.8 mg/dL H mg/dL (0.7-1.3) Estimated GFR 38 Glucose 106 mg/dL H mg/dL (70-100) Calcium 9.8 mg/dL mg/dL (8.5-10.4) Total Bilirubin 2.0 mg/dL H mg/dL (0.1-1.4) AST 34 IU/L IU/L (17-59) ALT 22 IU/L IU/L (21-72) Alkaline Phosphatase 111 IU/L IU/L (38-126) Total Protein 9.0 g/dL H g/dL (6.3-8.2) Albumin 4.6 g/dL g/dL (3.5-5.0) Stool Occult Bld Scrn Digoxin 11/05/18 11/05/18 21:11 21:10 WBC RBC Hgb Hct MCV MCH MCHC RDW Plt Count MPV Neut % (Auto) Lymph % (Auto) Power % (Auto) Eos % (Auto) Baso % (Auto) Nucleat RBC Rel Count Absolute Neuts (auto) Absolute Lymphs (auto) Absolute Monos (auto) Absolute Eos (auto) Absolute Basos (auto) Absolute Nucleated RBC Immature Gran % Immature Gran # RBC/WBC/PLT Morphology Platelet Estimate PT INR APTT Sodium Potassium Chloride Carbon Dioxide Anion Gap BUN Creatinine Estimated GFR Glucose Calcium Total Bilirubin AST ALT Alkaline Phosphatase Total Protein Albumin Stool Occult Bld Scrn POSITIVE H (NEGATIVE) Digoxin < 0.4 ng/mL L ng/mL (0.8-2.0) Medications Given: Discontinued Medications Sodium Chloride (Ns) 1,000 mls @ 0 mls/hr IV EDNOW ONE; Wide Open PRN Reason: Protocol Stop: 11/05/18 21:00 Last Admin: 11/05/18 21:23 Dose: 1,000 mls Departure - Departure Disposition: [facility] Inpatient Acute Clinical Impression: Dehydration Acute renal failure Qualifiers: Acute renal failure type: unspecified Qualified Code(s): N17.9 - Acute kidney failure, unspecified Hematemesis Qualifiers: Nausea presence: with nausea Qualified Code(s): K92.0 - Hematemesis Condition: Fair Referrals: [facility] [Other] - As per Instructions
[2018-11-05] MEDS ORDERED: IOPAMIDOL (ISOVUE-300) 100 ML BTL ONE (21:41)
[2018-11-05] MEDS ORDERED: PANTOPRAZOLE SODIUM 40 MG VIAL IVP ONE (23:32)
[2018-11-05] MEDS ORDERED: ONDANSETRON DISINTEGRATING 4 MG TAB PO PRN (23:47)
[2018-11-05] MEDS ORDERED: ONDANSETRON 4 MG/2 ML VIAL IVP PRN (23:47)
[2018-11-05] MEDS ORDERED: ACETAMINOPHEN 325 MG TAB PO PRN (23:47)
--- NOTE | 2018-11-06 03:17 | GHP ---
[f rep st] HISTORY AND PHYSICAL DATE OF ADMISSION: 11/05/2018 SOURCE: The patient is not able to provide a significant amount of history. Quite lethargic, but he is awake, not very interactive. EMR was reviewed, and case discussed with ED provider. CHIEF COMPLAINT: Coffee-ground emesis, nausea, vomiting. HISTORY OF PRESENT ILLNESS: This is a 68-year-old gentleman with a past medical history significant for left spastic hemiplegia, who is wheelchair bound , PVD, atrial fib on Xarelto, COPD, chronic pain, obesity, CAD status post CABG , who presents to emergency department today from his home after home health care nurses found the patient significantly lethargic as well as actively vomiting with coffee-ground emesis. Patient currently denying any fevers, chills, abdominal pain. He denies any current nausea and has not had any vomiting since arrival. No diarrhea is reported. No known sick contacts. Patient was just hospitalized on 10/21/18, and discharged 10/22/18, for a mechanical fall with head injury out of his wheelchair. REVIEW OF SYSTEMS: Limited due to patient's ability to cooperate and lethargy. ALLERGIES: Equine-containing products, tetanus shot, bee pollen, gabapentin. MED LIST: See List in [employer] not yet reconciled. PAST MEDICAL HISTORY: Significant for left spastic hemiplegia secondary to CVA in 2012, wheelchair bound, atrial fibrillation on Xarelto, COPD, chronic pain, obesity, CAD status post CABG, and PVD. PAST SURGICAL HISTORY: Significant for CABG, peripheral vascular disease status post bypass. FAMILY HISTORY: Noncontributory, significant for myocardial infarction. SOCIAL: 1. Patient lives alone. He has caregivers who visit with him frequently. He is wheelchair bound. 2. Patient quit tobacco. No illicit drugs or alcohol use. 3. Code is full. PHYSICAL EXAMINATION: VITAL SIGNS UPON ARRIVAL TO THE ED: Blood pressure is 110/70, heart rate is 63, respiratory rate 18, O2 sat is 95% on room air, temperature 36.6. CURRENT VITALS: Blood pressure 123/68, heart rate is 61, respiratory rate 16, O2 sat 96% on room air with a temperature 36.5. GENERAL: No acute distress. Obese gentleman with left hemiparesis, lies quietly in bed. He lies mostly with his eyes open, staring at the ceiling. He will answer a few yes/no questions but unable to verify patient's baseline at this time. HEAD : Normocephalic atraumatic. EYES: Limited exam of extraocular muscles due to patient just staring up to the ceiling despite redirection. Pupils are equal and symmetric but are with decreased reactivity to light bilaterally. ENT: Mucous membranes appear slightly dry. No oropharyngeal erythema or exudates. No nasal discharge. NECK: Supple. Trachea midline. Excessive soft tissue present. CV: Regular rate and rhythm. No murmurs, rubs, or gallops appreciated. RESPIRATORY: Lungs clear to auscultation bilaterally, but diminished inspiratory effort by the patient. There is no cough. No wheezes or rales. No rhonchi reported. ABDOMEN: Obese, soft, but full of stool. Hypoactive bowel sounds. No tenderness to palpation reported. : No suprapubic tenderness to palpation. No Weathers catheter in place. EXTREMITIES: Patient does have some cool distal extremities, but he actually has palpable pulses. Pedal pulses 1+, and dorsalis pedis pulses are 2+ bilaterally. Toes do appear slightly blue to dark purple and cool. NEURO: Left-sided hemiparesis. Limited exam at this time as patient is not able to cooperate. LABORATORY STUDIES: 1. WBC 6.89, H and H are 16.7 and 51.6, MCV 83.4, platelet count is 199, no bands. 2. PT is 27.5, INR is 2.56, PTT is 45.7. Sodium is 136, potassium 3.7, chloride 94, CO2 29, anion gap 13, BUN 6, creatinine is 1.8, GFR 30, glucose is 106, calcium is 9.8, total bilirubin 2.0, ALT is 22, AST is 34, alk phos 111, total protein is 9.0, albumin 4.6. UA: Specific gravity 1.018 with a pH of 5.0 , otherwise clear and negative. 3. Gastroccult was positive. 4. Dig less than 0.4. 5. Chest x-ray image report reviewed by me. Sequelae of prior CABG with cardiomegaly. No congestive heart failure or focal infiltrates. 6. CT abdomen, pelvis with contrast negative for evidence of small or large bowel obstruction. Persistent ventral wall hernias are present. Cholelithiasis. No evidence of cholecystitis or bile duct dilatation. Cardiomegaly. Sequelae of prior CABG. Patent aortobifemoral bypass graft with high-grade restenosis of the [place] celiac, MCA, and renal artery ostia. Upper abdominal aorta noted just before takeoff of the graft. Bilateral non- contributive nephrolithiasis with chronic mild cortical atrophy. 7. EKG: I reviewed myself. AFib with nonspecific intraventricular conduction delay. Nonspecific repolarization changes in diffuse leads. QTc 467. The rate is noted to be in the 60s. ASSESSMENT AND PLAN: This is a 68-year-old gentleman with a history of cerebrovascular accident, peripheral vascular disease, coronary artery disease, status post coronary artery bypass graft, left spastic hemiparesis following a cerebrovascular accident, who presents to the emergency department today from home after home health care nursing staff noted patient to be actively vomiting coffee-ground emesis and with increasing lethargy. 1. Upper gastrointestinal bleed. Patient with reported coffee-ground emesis. Sample was sent with the patient by the home health nurse. He has not had any additional symptoms since that time. Cause could be posterior draining epistaxis versus most likely gastritis or Sinai-Mims tear in setting of intractable nausea, vomiting, versus less likely ulcer. Patient will be started on Protonix scheduled. He has been given a loading dose. Will continue every 6 hours. Patient without any additional gastrointestinal bleeding. Will further discuss with Gastrointestinal in the morning. Monitor H and H. 2. Acute kidney injury, likely prerenal in setting of intractable nausea, vomiting. Gentle intravenous fluid hydration overnight. Repeat BMP in the morning. 3. Metabolic encephalopathy. Patient is slightly confused. He is not able to follow instructions or conversations very well. I am not sure what the patient' s baseline is normally, but again, patient's home health nursing staff did report that patient is quite a bit more lethargic than normal with varied behavioral changes. 4. Intractable nausea, vomiting. Now, will leave Ativan available as needed for recurrence of nausea. 5. Peripheral vascular disease. Patient with status post bypass. He continues to have 2+ posterior tibialis pulses. His imaging study did show some increasing and progressive changes and subsequent occlusion. Patient to continue statin at this time. No acute interventions are required at this time. Continue additional follow up outpatient. 6. Coronary artery disease. Continue with patient's home medications. 7. Benign essential hypertension. Patient's blood pressures are acceptable at this time. Resume patient's home medications when available. 8. Atrial fibrillation without rapid ventricular response, rate controlled. Will monitor for any evidence of tachycardia at this point. Holding off on bedside monitoring as rate controlled. metoprolol to continue when med rec available. 9. Chronic obstructive pulmonary disease. Nebulizers as needed. Patient without exacerbation at this time. 10. Chronic pain. Resume patient's home medications. 11. Fluid, electrolyte, nutrition: Intravenous fluids overnight. Monitor for any signs of fluid overload. 12. Prophylaxis: Sequential compression devices. Lovenox. Continue patient' s anticoagulation. 13. COR status full. 14. Disposition: Patient admitted to observation status at this time on the [facility] floor for continued monitoring, and treatment plan as noted above. /[id number]/MODL MTDD
[2018-11-06] MEDS: NS 1,000 ML IV SCH (03:30)
[2018-11-06 04:48] LABS: PLATELET COUNT 164 10^3/uL (150-400)
[2018-11-06 04:53] LABS: INR 2.12 (0.83-1.16); PROTIME(PATIENT) 23.8 SEC (12.0-15.0)
--- NOTE | 2018-11-06 10:54 | WOCRNPDOC ---
WOCRN Advanced Assessment Note - Skin Integrity Problem, Advanced Assess Left First Toe Dressing Type: Open to Air Exudate Amount: None Zena Wound Tissue: Intact Wound Bed Color: Brown, Handley, Purple Wound Edges: Attached, Well Defined Site Measurement - Head-to-Toe Length X Width X Depth (cm): 0.5x0.5xintact Skin Integrity Problem Comment: Patient with an area of scarring to a prominance on his left great toe, possibly pressure related but documented at last admission as originating as a blister. Skin currently intact but will cover to protect. Right Sacrum Pressure Injury Dressing Type: Mepilex (sacral) Dressing Description: Clean/Dry, Intact Closure Description: Not Approximated Exudate Amount: Minimal Exudate Color: Reddish/Yellow Exudate Characteristic(s): Serosanguinous Integumentary Issue Intervention: Visualized Under Dressing Zena Wound Tissue: Blanching, Erythema, Painful/Tender Wound Bed Color: Handley, Yellow Wound Bed Constitution: Granulation Tissue, Adhered Slough Wound Edges: Attached, Well Defined Site Measurement - Head-to-Toe Length X Width X Depth (cm): 2.7x1.6x0.2 Pressure Injury Stage: Stage 3 Pressure Injury Present on Admit: Yes Skin Integrity Problem Comment: Patient reports that he has had a wound to this area for quite some time, though no evidence of it from previous hospitalizations. Given patient's WC bound status, impaired bed mobility, and the location of this wound I suspect pressure contributed to the formation of this wound. Wound bed pink but with a small area of adhered slough, indicating at least a portion of this wound is full thickness. This wound presents as a stage 3 present on admission pressure injury. Will implement pressure relieving measures. Wound care will round again next week.
--- NOTE | 2018-11-06 11:48 | PDCONSULT ---
Program Aide Group Work Note: [email or web address] p: f: REFERRING PHYSICIAN: I was asked to see the patient in consultation by Dr. Kailee Martin for a chief complaint of hematemesis. HISTORY OF PRESENT ILLNESS: Mr. Mehta is a 68-year-old male with a history of atrial fibrillation and cerebrovascular accident on a Xarelto therapy. He presented to the [facility] ER on 11/05/2018 with lethargy as well as active vomiting containing coffee-ground emesis. The patient is a vague historian. He is awake and oriented. He does not recall having blood in his vomit but does think it looked dark. Doesn't really know if he has had weight loss or melena the last few weeks. PAST MEDICAL HISTORY: CVA, left spastic hemiplegia, wheelchair bound, peripheral vascular disease, atrial fibrillation Xarelto, COPD, chronic pain, obesity, coronary artery disease status post CABG, PAST SURGICAL HISTORY: Significant for CABG, peripheral vascular disease status post bypass HOME MEDICATIONS: Losartan 25 mg daily at bedtime, Klonopin 0.5 mg by mouth daily at bedtime, Lasix 20 mg by mouth daily Prozac 20 mg by mouth daily, baclofen 10 mg twice a day, atorvastatin 40 mg daily at bedtime, trazodone 50 mg daily at bedtime, morphine SR 15 mg twice a day, topiramate 50 mg by mouth daily, nystatin twice a day when necessary, nitroglycerin 0.4 mg sublingual when necessary, metoprolol 125 mg daily. INPATIENT MEDICATIONS: Pantoprazole 40 mg IV twice a day ALLERGIES: bee pollen, gabapentin, tetanus and horse derived products FAMILY HISTORY: No family history peptic ulcer disease SOCIAL HISTORY Former smoker No current Alcohol use lives at home with a visiting nurse ROS I have performed a comprehensive review of systems, which is negative except for pertinent positives and/or pertinent negatives as noted above in the HPI Physical exam: Vitals 7:05 AM 30 6.48R 46 RR 1597% room air BP 117/60 CONSTITUTIONAL: alert, unwell appearing, in no distress MENTAL STATUS: alert, oriented to person, place and time PSYCH: mood appropriate for affect EYES: pupils equal and reactive extra ocular eye movements intact EARS: right and left ear normal NOSE: normal and patent, no erythema, discharge or polyps MOUTH: edentulous Mallampati II HEAD: normal NECK: supple, no significant adenopatchy CHEST: clear to auscultation, no wheezes, rales or rhonchi, symmetric air entry CARDIOVASCULAR: normal rate, regular rhythm, normal S1,S2, no murmurs, rubs, clicks or gallops GASTROINTESTINAL: soft, non tender, non distended, no masses or organomegaly NEUROLOGICAL: alert, oriented, slurred speech, left hemiplegia MUSCULOSKELETAL: no joint tenderness, deformity or swelling SKIN: normal coloration and turgor, no rashes, no suspicious skin lesions CURRENT DATA: LABS: Date 11/05/2018 CBC: WBC 6.8 Hgb 16 platelets 199, Date 11/06/2018 CBC WBC 5 HGB 14 platelets 164 INR 2.1 BMP: Sodium 137 potassium 3 nightly 15 creatinine 1.6 LFT: CV 1.5 alkaline 89 AST 25 ALT 21 albumin 3.7 IMAGING: Date 11/05/2018 Skin abdomen pelvis with IV contrast performed for abdominal pain Impression: There is no evidence of acute small R large bowel obstruction however there is a ventral wall hernia Cholelithiasis Cardiomegaly Patent aortobifemoral bypass with high-grade stenosis of the needed celiac, SMA and renal artery Nonobstructive nephrolithiasis ENDOSCOPY: Date 05/27/2016 upper endoscopy Distal esophagitis, antral gastritis, duodenitis performed by Dr. Sexton ASSESSMENT: Mr. Mehta is a 68-year-old male with a history of atrial fibrillation and cerebrovascular accident on a Xarelto therapy. Suspect GERD with esophagitis, gastritis and duodenitis as previously seen on Dr. Sexton's endoscopy in 2016. RECOMMENDATIONS: -Keep patient NPO. Ensure large bore IV access. -Hold anticoagulation at this time -Monitor H/H and resuscitate with blood transfusions per protocol -PPI 40 mg IV BID -Will plan on urgent endoscopy, further recommendations to follow. -Thank you for this consultation Sincerely, Babita Galvez MD [facility]
--- NOTE | 2018-11-06 11:50 | PDGENHP ---
History & Physical Chief Complaint: Hematemesis History of Present Illness: 68 year old with with CVA, COPD, CABG/CAD on Xarelto therapy Relevant Physical Exam: Alert and oriented x 3, Left hemiplegia, MM moist, Mallampati II, Abdomen soft non tender Cardiorespiratory Assessment: RRR, CTAB, ASA III-E
[2018-11-06] MEDS ORDERED: LIDOCAINE 2% 100 MG/5 ML SYR ONE (12:12)
[2018-11-06] MEDS ORDERED: fentaNYL 100 MCG/2 ML INJ ONE (12:12)
[2018-11-06] MEDS ORDERED: PROPOFOL/EMULSION 500 MG/50 ML BOTTLE IV ONE (12:12)
[2018-11-06] MEDS ORDERED: MEPERIDINE 25 MG/0.5 ML AMP IVP PRN (12:24)
[2018-11-06] MEDS ORDERED: LR 500 ML IV PRN (12:24)
[2018-11-06] MEDS ORDERED: HYDROCODONE/APAP 5/325 TAB PO PRN (12:24)
[2018-11-06] MEDS ORDERED: DEXAMETHASONE 4 MG/ML VIAL IVP PRN (12:24)
[2018-11-06] MEDS ORDERED: fentaNYL 100 MCG/2 ML INJ IVP PRN (12:24)
[2018-11-06] MEDS ORDERED: NALOXONE HCL 0.4 MG/ML INJ IVP PRN (12:24)
--- NOTE | 2018-11-06 12:24 | PDANEPAE ---
ANE History of Present Illness hematemesis, here for urgent EGD ANE Past Medical History - Pulmonary History Hx Oxygen in Use at Home: No Hx Sleep Apnea: Yes Sleep Apnea Screening Result - Last Documented: Positive - Endocrine History Hx Diabetes: No - Chronic Pain History Chronic Pain: Yes ANE Review of Systems Review of Systems: ANE Patient History - Allergies Allergies/Adverse Reactions: Horse/Equine Containing Products [Horse/Equine Product Derivatives] Allergy ( Severe, Verified 11/05/18 21:00) SWELLING Tetanus Vaccines and Toxoid [Tetanus] Allergy (Severe, Verified 11/05/18 21:00) SWELLING bee pollen [Bee Pollen] Allergy (Intermediate, Verified 11/05/18 21:00) SWELLING gabapentin Allergy (Verified 11/05/18 21:00) Other-Enter Comments - Home Medications Home Medications: Atorvastatin Calcium [Lipitor 40 mg (*)] 40 mg PO HS 02/12/15 [Last Taken ] Baclofen [Baclofen 10 mg (*)] 10 mg PO BID 02/12/15 [Last Taken 05/24/16] Metoprolol Tartrate [Lopressor 50 mg (*)] 125 mg PO DAILY 02/12/15 [Last Taken 05/24/16] Nitroglycerin [Nitrostat 0.4 mg (*)] 0.4 mg SL PRN PRN 02/12/15 [Last Taken ] morphINE SR [Ms Contin/Oramorph 15 mg (*)] 15 mg PO BID 02/12/15 [Last Taken 05/31] Fluticasone/Salmeter 250/50Mcg [Advair 250/50 (*)] 2 puffs IH BID 11/27/15 [ Last Taken 05/24/16] Furosemide [Lasix 20 MG (*)] 20 mg PO DAILY 11/27/15 [Last Taken 05/24/16] Losartan Potassium [Cozaar 25 mg (*)] 25 mg PO HS 11/27/15 [Last Taken 05/24/16] Nystatin [Nyamyc] 100,000 units TP BID PRN 11/27/15 [Last Taken 05/24/16] Topiramate 50 mg PO DAILY 11/27/15 [Last Taken 05/24/16] FLUoxetine [Prozac 20 MG (*)] 20 mg PO DAILY 07/27/16 [Last Taken 05/24/16] traZODone [traZODONE 50MG (*)] 50 mg PO HS 08/13/18 [Last Taken Unknown] Herbals/Supplements -Info Only 1 ea PO DAILY 10/21/18 [Last Taken Unknown] Rivaroxaban [Xarelto] 20 mg PO HS 10/22/18 [Last Taken Unknown] clonazePAM [Klonopin (*)] 0.5 mg PO HS 11/06/18 [Last Taken Unknown] - NPO status NPO Since - Liquids (Date): 11/05/18 - Smoking Hx Smoking Status: Former smoker ANE Labs/Vital Signs - Labs Result Diagrams: 11/06/18 03:46 11/06/18 03:46 - Vital Signs Blood Pressure: 117/60 Heart Rate: 46 Respiratory Rate: 15 O2 Sat (%): 97 Height: 172.72 cm Weight: 73.2 kg ANE Physical Exam - Airway Neck exam: decreased ROM Mallampati Score: Class 3 Mouth exam: normal dental/mouth exam, dentures - Pulmonary Pulmonary: no respiratory distress, no rales or rhonchi - Cardiovascular Cardiovascular: no murmur, rub, or gallop, irregularly irregular - ASA Status ASA Status: III, E ANE Anesthesia Plan Anesthesia Plan: GA with mask Total IV Anesthesia: Yes
--- NOTE | 2018-11-06 12:40 | GIREPORT ---
Count Includes [facility] Surgical Services - Endoscopy Department Patient Name: Te Mehta Procedure Date: 11/06/2018 11:53 AM Patient Type: Inpatient Attending / ER Physician: Babita Galvez MD Procedure: Upper GI endoscopy Indications: Hematemesis Providers: Babita Galvez MD Medicines: Monitored Anesthesia Care Complications: No immediate complications. Description of Procedure: After obtaining informed consent, the endoscope was passed under direct vision. Throughout the procedure, the patient's blood pressure, pulse, and oxygen saturations were monitored continuously. The Endoscope was intro duced through the mouth, and advanced to the second part of duodenum. [facility] er GI endoscopy was accomplished without difficulty. The patient tolerated th e procedure well. Findings: The proximal esophagus and mid esophagus were normal. LA Grade A (one or more mucosal breaks less than 5 mm, not extending be tween tops of 2 mucosal folds) esophagitis with no bleeding was found. The gastroesophageal flap valve was visualized endoscopically and class ified as Hill Grade I (prominent fold, tight to endoscope). Diffuse moderate inflammation characterized by erythema was found in th e entire examined stomach. Biopsies were taken with a cold forceps for Helicobacter pylori testing. Estimated blood loss was minimal. One non-bleeding superficial duodenal ulcer with no stigmata of bleedin g was found in the duodenal bulb. The lesion was less than one mm in largest dimension. The first portion of the duodenum and second portion of the duodenum we re normal. Estimated Blood Loss: Estimated blood loss was minimal. Post Op Diagnosis: - Normal proximal esophagus and mid esophagus. - LA Grade A reflux esophagitis. - Gastroesophageal flap valve classified as Hill Grade I (prominent fol d, tight to endoscope). - Gastritis. Biopsied. - One non-bleeding duodenal ulcer with no stigmata of bleeding. Very superficial and did not require endoscopic therapy. - Normal first portion of the duodenum and second portion of the duoden um. Recommendation: - Return patient to [facility] for ongoing care. - Advance diet as tolerated. Clear liquid diet ordered today though oka y to advance diet in afternoon if no further bleeding. - Follow an antireflux regimen. - Use a proton pump inhibitor PO/IV BID for 8 weeks then return to lian y use. - Resume Xarelto (rivaroxaban) or Eliquis (patient previous anti-coagulation) at prior dose today. Refer to managing physician for further adjustment of therapy. - Signing off today. - Thank you for allowing me to participate in the care of this patient. Attending Participation: I personally performed the entire procedure. Babita Galvez MD Babita Galvez MD 11/06/2018 12:39:46 PM This report has been signed electronicallyBabita Galvez MD Number of Addenda: 0 Note Initiated On: 11/06/2018 11:53 AM [email or web address]
--- NOTE | 2018-11-06 12:50 | POSTANESTH ---
Post Anesthetic Evaluation Cardiovascular Status: Normal, Stable Respiratory Status: Normal, Stable Level of Consciousness/Mental Status: Can Participate in Eval, Mildly Sleepy, Arousable Pain Control: Adequate, Prn Tx Ordered Nausea/Vomiting Control: Adequate, Prn Tx Ordered Complications Possibly Related to Anesthesia: None Noted
[2018-11-06] MEDS: PANTOPRAZOLE SODIUM 40 MG VIAL IVP SCH ×2 (15:08→20:37)
[2018-11-06] MEDS ORDERED: NYSTATIN POWDER 15 GM BTL TP PRN (16:25)
--- NOTE | 2018-11-06 18:22 | HOSPPROG ---
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 Upper GI bleed- gastroenterology consulted today who took the patient to EGD with no evidence of active bleeding. There was some mild esophagitis with no bleeding found. There was diffuse moderate inflammation characterized by erythema found in the entire stomach. Biopsies were taken with cold forceps. There was 1 nonbleeding superficial duodenal ulcer with no stigmata of bleeding found in the duodenal bulb that was less than 1 mm. -ppi -advanced diet as tolerated A KI-likely prerenal azotemia in the setting of dehydration is the patient looks dehydrated. Responded well to fluid resuscitation overnight. -continue IV fluids -recheck renal function in the morning Nausea vomiting-has had no further nausea or vomiting since arrival. P.r.n. Zofran available Peripheral vascular disease-patient is status post bypass. Coronary artery disease-continue Lasix, losartan, metoprolol, Lipitor Atrial fibrillation-continue Lopressor and Xarelto COPD- continue inhalers p.r.n. Chronic pain-continue home morphine sustained release, baclofen History of CVA- on statin and beta-jazmin for blood pressure control. Has resultant right hemiparesis. Prophylaxis-on Xarelto Fluids-NS Electrolytes-within normal limits Nutrition-regular diet Cor-DNR Dispo-inpatient for GI bleed, wilfredo Subjective: no complaints. Objective: Vital Signs Temp Pulse Resp BP Pulse Ox 36.5 C 61 18 123/64 H 98 11/06/18 16:00 11/06/18 16:00 11/06/18 16:00 11/06/18 16:00 11/06/18 16:00 Laboratory Results 11/06/18 03:46 11/06/18 03:46 11/05/18 11/06/18 11/07/18 05:59 05:59 05:59 Intake Total 1050 Output Total 300 Balance 750 PT 23.8 SEC (12.0-15.0) H 11/06/18 03:46 INR 2.12 (0.83-1.16) H 11/06/18 03:46 - Physical Exam Constitutional: no apparent distress, appears nourished, not in pain Eyes: PERRL, anicteric sclera, EOMI Ears, Nose, Mouth, Throat: moist mucous membranes, hearing normal, ears appear normal, no oral mucosal ulcers Cardiovascular: regular rate and rhythym, no murmur, rub, or gallop Respiratory: no respiratory distress, no rales or rhonchi, clear to auscultation Gastrointestinal: normoactive bowel sounds, soft, non-tender abdomen, no palpable masses Genitourinary: no bladder fullness, no bladder tenderness, no renal bruits Skin: no rashes or abrasions, no fluctuance, no induration Musculoskeletal: full muscle strength, no muscle tenderness, normal joint ROM Neurologic: AAOx3, sensation intact bilaterally Psychiatric: interacting appropriately, not anxious, not encephalopathic, thought process linear Lymph, Heme, Immunologic: no cervical LAD, no supraclavicular LAD ICD10 Worksheet Patient Problems: Problems Problem Status Onset Acute renal failure Acute Dehydration Acute Hematemesis Acute Atrial fibrillation and flutter Active CAD - Coronary arteriosclerosis Active Dyslipidemia Active Essential hypertension Active Gout Active Heart disease Active Morbid obesity Active Peripheral vascular disease Active Ulcer of lower extremity Active Abrasion of left hand Acute COPD exacerbation Acute Chest pain Acute Chronic Disease Mgmt/Transitional Care Acute Contusion of left hand Acute Contusion of left leg Acute Contusion of left shoulder Acute Cough Acute Fall Acute Laceration of left leg Acute Upper GI bleed Acute Viral syndrome Acute
[2018-11-06] MEDS: clonazePAM 0.5 MG TAB PO SCH (20:37)
[2018-11-06] MEDS: morphINE SR 15 MG TAB PO SCH (20:37)
[2018-11-06] MEDS: RIVAROXABAN 20 MG TAB PO SCH (20:37)
[2018-11-06] MEDS: BACLOFEN 10 MG TAB PO SCH (20:38)
[2018-11-06] MEDS: LOSARTAN POTASSIUM 25 MG TAB PO SCH (20:38)
[2018-11-06] MEDS: ATORVASTATIN CALCIUM 40 MG TAB PO SCH (20:38)
[2018-11-06] MEDS: traZODone 50 MG TAB PO SCH (20:38)
[2018-11-06] MEDS: FLUTICASONE/SALMETER 250/50MCG DISKUS IH SCH (21:16)
--- NOTE | 2018-11-07 04:06 | CPEKG ---
Test Reason : OPEN Blood Pressure : / mmHG Vent. Rate : 068 BPM Atrial Rate : 186 BPM P-R Int : 064 ms QRS Dur : 115 ms QT Int : 439 ms P-R-T Axes : 000 075 241 degrees QTc Int : 467 ms Nonspecific intraventricular conduction delay Nonspecific repol abnormality, diffuse leads Confirmed by Ebony Leone ([id number]) on 11/07/2018 4:06:07 AM Referred By: Ebony Leone Confirmed By:Ebony Leone
[2018-11-07 05:49] LABS: PLATELET COUNT 146 10^3/uL (150-400)
[2018-11-07] MEDS ORDERED: FUROSEMIDE 20 MG TAB PO SCH (09:00)
[2018-11-07] MEDS ORDERED: PROTOCOL POTASSIUM 1 DOSE MISC PRN (09:03)
[2018-11-07] MEDS ORDERED: POTASSIUM CL 10 MEQ TAB PO ONE ×2 (09:08→20:33)
[2018-11-07] MEDS: FLUTICASONE/SALMETER 250/50MCG DISKUS IH SCH ×2 (09:14→21:52)
--- NOTE | 2018-11-07 10:06 | HOSPPROG ---
Hospitalist Progress Note Assessment/Plan: 68yo M with h/o CVA with resultant left sided hemiparesis, afib on OAC presented after home health RN noted coffee ground emesis. # Upper GI bleed: No further episodes while here - EGD 11/06 with gastritis, esophagitis - Biopsies for H pylori pending - Switching IV to PO PPI BID, needs for 8 weeks - Advance diet to regular # FRANCISCO: Prerenal, improving - Liberalize intake, recheck in AM # Hypokalemia: D/t poor PO - Replete, placed on protocol, holding lasix # Atrial fibrillation: Rates controlled - Resumed xarelto last night, cont lopressor # H/o CVA with resultant L spastic hemiparesis - PT/OT, has home health RN # CAD, PVD: Continue home meds # Chronic pain with continuous opioid dependency: Continue home MS contin # COPD: No flare, home inhalers VTE ppx: theapeutic anticoagulation Code: DNR Dispo: Remain inpatient, possibly dc tomorrow pending clinical stability Subjective: Doing well. No hematemesis. Hasn't had BM. No abdominal pain. Objective: Vital Signs Temp Pulse Resp BP Pulse Ox 36.4 C 68 16 114/57 L 97 11/07/18 08:00 11/07/18 08:00 11/07/18 08:00 11/07/18 08:00 11/07/18 08:00 Laboratory Results 11/07/18 04:18 11/07/18 04:18 11/06/18 11/07/18 11/08/18 05:59 05:59 05:59 Intake Total 1050 750 Output Total 300 500 100 Balance 750 250 -100 PT 23.8 SEC (12.0-15.0) H 11/06/18 03:46 INR 2.12 (0.83-1.16) H 11/06/18 03:46 - Physical Exam Constitutional: no apparent distress, obese Eyes: PERRL, anicteric sclera Ears, Nose, Mouth, Throat: moist mucous membranes Cardiovascular: regular rate and rhythym, no murmur, rub, or gallop Respiratory: no respiratory distress, no rales or rhonchi, clear to auscultation Gastrointestinal: normoactive bowel sounds, soft, non-tender abdomen, no palpable masses Genitourinary: no bladder fullness, no bladder tenderness, no renal bruits Skin: no rashes or abrasions, no fluctuance, no induration Musculoskeletal: other (left sided hemiparesis) Neurologic: AAOx3 Psychiatric: interacting appropriately ICD10 Worksheet Patient Problems: Problems Problem Status Onset Acute renal failure Acute Dehydration Acute Hematemesis Acute Atrial fibrillation and flutter Active CAD - Coronary arteriosclerosis Active Dyslipidemia Active Essential hypertension Active Gout Active Heart disease Active Morbid obesity Active Peripheral vascular disease Active Ulcer of lower extremity Active Abrasion of left hand Acute COPD exacerbation Acute Chest pain Acute Chronic Disease Mgmt/Transitional Care Acute Contusion of left hand Acute Contusion of left leg Acute Contusion of left shoulder Acute Cough Acute Fall Acute Laceration of left leg Acute Upper GI bleed Acute Viral syndrome Acute
[2018-11-07] MEDS: PANTOPRAZOLE SODIUM 40 MG VIAL IVP SCH (10:12)
[2018-11-07] MEDS: METOPROLOL TARTRATE 50 MG TAB PO SCH (10:17)
[2018-11-07] MEDS: morphINE SR 15 MG TAB PO SCH ×2 (10:20→21:48)
[2018-11-07] MEDS: BACLOFEN 10 MG TAB PO SCH ×2 (10:21→21:47)
[2018-11-07] MEDS: TOPIRAMATE 25 MG TAB PO SCH (10:21)
[2018-11-07] MEDS: FLUoxetine 20 MG CAP PO SCH (10:21)
--- NOTE | 2018-11-07 11:35 | ASMTCMCOM ---
CM Note CM Note Notes: Chart reviewed and visited with marcelle. Pt has a history of CVA (2012) with a left hemiparesis and uses an electric w/c. He lives in and apartment on his own and has Alice ([phone]) HC and Flower RIOS ([phone]) is his nurse who comes M/W/F. Pt also has Aides for 4hrs in the morning & and night. He recently fired his noc aide. Pt is adamant about returning home w/ services. Ot recomends Home care and PT to evaluate Pt. CM will continue to monitor needs. PLAN: Discharge home with [facility] Date Signed: 11/07/2018 11:34 AM Electronically Signed By:Zohra Izaguirre RN
--- NOTE | 2018-11-07 17:43 | PDMN ---
Medical Necessity Medical necessity: MCG M180 UGIB, A-2 days: 68 yo w/ coffee ground emesis, FRANCISCO , and hypokalemia, initially OBS for workup but requires additional MN w/ dx of UGIB, still on IVF, K+ dropped to 2.8 overnight from 3.7, creat still elevated. Hx CVA w/ L sided hemiparesis, afib, CAD post CABG, COPD. Change to IP status 11/07/18@1606 per MD order, W/C bound
[2018-11-07] MEDS ORDERED: POLYETHYLENE GLYCOL 3350 17 GM PKT PO PRN (18:00)
[2018-11-07] MEDS: LOSARTAN POTASSIUM 25 MG TAB PO SCH (21:45)
[2018-11-07] MEDS: clonazePAM 0.5 MG TAB PO SCH (21:46)
[2018-11-07] MEDS: PANTOPRAZOLE SODIUM 40 MG TAB PO SCH (21:47)
[2018-11-07] MEDS: RIVAROXABAN 20 MG TAB PO SCH (21:47)
[2018-11-07] MEDS: SENNOSIDES/DOCUSATE SODIUM TAB PO SCH (21:48)
[2018-11-07] MEDS: traZODone 50 MG TAB PO SCH (21:48)
[2018-11-07] MEDS: ATORVASTATIN CALCIUM 40 MG TAB PO SCH (21:49)
[2018-11-08] MEDS ORDERED: POTASSIUM CL 10 MEQ TAB PO ONE ×2 (06:10→21:51)
[2018-11-08] MEDS: FLUTICASONE/SALMETER 250/50MCG DISKUS IH SCH ×2 (10:08→21:29)
[2018-11-08] MEDS: PANTOPRAZOLE SODIUM 40 MG TAB PO SCH ×2 (10:11→22:16)
[2018-11-08] MEDS: FLUoxetine 20 MG CAP PO SCH (10:12)
[2018-11-08] MEDS: TOPIRAMATE 25 MG TAB PO SCH (10:13)
[2018-11-08] MEDS: BACLOFEN 10 MG TAB PO SCH ×2 (10:13→22:16)
[2018-11-08] MEDS: SENNOSIDES/DOCUSATE SODIUM TAB PO SCH ×2 (10:13→22:31)
[2018-11-08] MEDS: METOPROLOL TARTRATE 50 MG TAB PO SCH (10:15)
[2018-11-08] MEDS: morphINE SR 15 MG TAB PO SCH ×2 (10:15→22:15)
--- NOTE | 2018-11-08 13:40 | HOSPPROG ---
Hospitalist Progress Note Assessment/Plan: 68yo M with h/o CVA with resultant left sided hemiparesis, afib on OAC presented after home health RN noted coffee ground emesis. # Upper GI bleed: No further episodes while here. H/H stable. - EGD 11/06 with gastritis, esophagitis - Biopsies for H pylori pending - Continue PO PPI BID, needs for 8 weeks # Acute metabolic/toxic encephalopathy: Concern for polypharmacy - Holding PM klonipin - Needs outpatient med titration # H/o CVA with resultant L spastic hemiparesis - PT/OT recommending SNF, patient adamantly refusing - Has home health RN # FRANCISCO: Prerenal, improving and almost back to normal - Avoid nephrotoxins # Hypokalemia: D/t poor PO, better - Replete, placed on protocol, holding lasix # Atrial fibrillation: Rates controlled - Resumed xarelto last night, cont lopressor # CAD, PVD: Continue home meds # Chronic pain with continuous opioid dependency: Continue home MS contin # COPD: No flare, home inhalers VTE ppx: theapeutic anticoagulation Code: DNR Dispo: Remain inpatient, possibly dc tomorrow pending improvement in mental status Subjective: Had BM today that wasn't dark or bloody. No hematemesis. No abdominal pain. Wants to go home. Confused today Objective: Vital Signs Temp Pulse Resp BP Pulse Ox 36.8 C 73 16 114/64 92 11/08/18 07:51 11/08/18 11:50 11/08/18 11:50 11/08/18 11:50 11/08/18 11:50 Laboratory Results 11/08/18 05:39 11/08/18 05:39 11/07/18 11/08/18 11/09/18 05:59 05:59 05:59 Intake Total 750 Output Total 250 Balance 500 PT 23.8 SEC (12.0-15.0) H 11/06/18 03:46 INR 2.12 (0.83-1.16) H 11/06/18 03:46 - Physical Exam Constitutional: no apparent distress, other (somnolent) Eyes: PERRL, anicteric sclera Ears, Nose, Mouth, Throat: moist mucous membranes Cardiovascular: regular rate and rhythym, no murmur, rub, or gallop Respiratory: no respiratory distress, no rales or rhonchi, clear to auscultation Gastrointestinal: normoactive bowel sounds, soft, non-tender abdomen, no palpable masses Genitourinary: no bladder fullness, no bladder tenderness, no renal bruits Skin: no rashes or abrasions, no fluctuance, no induration Musculoskeletal: other (left hemiplegia) Neurologic: other (alert, oriented but somnolent) Psychiatric: interacting appropriately ICD10 Worksheet Patient Problems: Problems Problem Status Onset Acute renal failure Acute Dehydration Acute Hematemesis Acute Atrial fibrillation and flutter Active CAD - Coronary arteriosclerosis Active Dyslipidemia Active Essential hypertension Active Gout Active Heart disease Active Morbid obesity Active Peripheral vascular disease Active Ulcer of lower extremity Active Abrasion of left hand Acute COPD exacerbation Acute Chest pain Acute Chronic Disease Mgmt/Transitional Care Acute Contusion of left hand Acute Contusion of left leg Acute Contusion of left shoulder Acute Cough Acute Fall Acute Laceration of left leg Acute Upper GI bleed Acute Viral syndrome Acute
--- NOTE | 2018-11-08 15:41 | ASMTCMCOM ---
CM Note CM Note Notes: Met with patient and his sister/DRE Jauregui to discuss rehab. They requested a referral to [facility], stating that patient has been there before. Per [facility], the PT today mentioned that patient may benefit from rehab. I also encouraged them to consider other facilities if they really want to pursue rehab. They will check w patient's homecare RN regarding the suggestions I gave them. Otherwise, I assume that patient will return home with [facility] and his private duty help. Case Managment will follow. Date Signed: 11/08/2018 03:41 PM Electronically Signed By:Shaista Sanchez RN
[2018-11-08] MEDS: traZODone 50 MG TAB PO SCH (22:15)
[2018-11-08] MEDS: RIVAROXABAN 20 MG TAB PO SCH (22:17)
[2018-11-08] MEDS: ATORVASTATIN CALCIUM 40 MG TAB PO SCH (22:23)
[2018-11-08] MEDS: LOSARTAN POTASSIUM 25 MG TAB PO SCH (22:23)
[2018-11-09] MEDS ORDERED: POTASSIUM CL 10 MEQ TAB PO ONE ×2 (06:26→19:26)
[2018-11-09] MEDS ORDERED: POTASSIUM CL 10 MEQ TAB ONE (06:28)
[2018-11-09] MEDS: FLUTICASONE/SALMETER 250/50MCG DISKUS IH SCH ×2 (08:35→21:38)
[2018-11-09] MEDS: METOPROLOL TARTRATE 50 MG TAB PO SCH (08:51)
[2018-11-09] MEDS: PANTOPRAZOLE SODIUM 40 MG TAB PO SCH ×2 (08:52→21:07)
[2018-11-09] MEDS: TOPIRAMATE 25 MG TAB PO SCH (08:52)
[2018-11-09] MEDS: morphINE SR 15 MG TAB PO SCH ×2 (08:52→21:09)
[2018-11-09] MEDS: FLUoxetine 20 MG CAP PO SCH (08:53)
[2018-11-09] MEDS: BACLOFEN 10 MG TAB PO SCH ×2 (08:53→21:09)
[2018-11-09] MEDS: SENNOSIDES/DOCUSATE SODIUM TAB PO SCH ×2 (08:57→21:09)
--- NOTE | 2018-11-09 10:38 | ASMTLACE ---
CODEY Acuity / Level of Answers: Yes Care: Did the patient have an inpatient admission? Comorbidities - select Answers: Cerebrovascular disease all that apply (CVA, TIA, aneurysms, vasc ular dementia) Chronic pulmonary disease Coronary Artery Disease Opioid dependence / Chronic pain Other Notes: AFib; Hx of CABG # of Emergency department Answers: 3-4 visits in the last 6 months Score: 16 Date Signed: 11/09/2018 10:38 AM Electronically Signed By:Therese Stoner
--- NOTE | 2018-11-09 17:17 | HOSPPROG ---
Hospitalist Progress Note Assessment/Plan: 68yo M with h/o CVA with resultant left sided hemiparesis, afib on OAC presented after home health RN noted coffee ground emesis. # Upper GI bleed: No further episodes while here. H/H stable. - EGD 11/06 with gastritis, esophagitis - Biopsies negative for H pylori - Continue PO PPI BID, needs for 8 weeks # Acute metabolic/toxic encephalopathy: Better today. Concern for polypharmacy - Holding PM klonipin - Needs outpatient med titration # H/o CVA with resultant L spastic hemiparesis - PT/OT recommending SNF, patient agreeable today - Has home health RN # FRANCISCO: Prerenal, improving and almost back to normal - Avoid nephrotoxins # Hypokalemia: D/t poor PO, better - Replete, placed on protocol, holding lasix # Atrial fibrillation: Rates controlled - Resumed xarelto, cont lopressor # CAD, PVD: Continue home meds # Chronic pain with continuous opioid dependency: Continue home MS contin # COPD: No flare, home inhalers VTE ppx: theapeutic anticoagulation Code: DNR Dispo: Remain inpatient, unsafe to discharge back to home. Plan for SNF, hopefully tomorrow Subjective: No additional bowel movements. No abdominal pain. Objective: Vital Signs Temp Pulse Resp BP Pulse Ox 36.3 C 55 L 16 115/68 96 11/09/18 15:21 11/09/18 15:21 11/09/18 15:21 11/09/18 15:21 11/09/18 15:21 Laboratory Results 11/08/18 05:39 11/09/18 05:24 11/08/18 11/09/18 11/10/18 05:59 05:59 05:59 Intake Total 750 960 150 Output Total 250 775 Balance 500 185 150 PT 23.8 SEC (12.0-15.0) H 11/06/18 03:46 INR 2.12 (0.83-1.16) H 11/06/18 03:46 - Physical Exam Constitutional: no apparent distress Eyes: PERRL, anicteric sclera Ears, Nose, Mouth, Throat: moist mucous membranes Cardiovascular: regular rate and rhythym, no murmur, rub, or gallop Respiratory: no respiratory distress, no rales or rhonchi, clear to auscultation Gastrointestinal: normoactive bowel sounds, soft, non-tender abdomen, no palpable masses Genitourinary: no bladder fullness, no bladder tenderness, no renal bruits Skin: no rashes or abrasions, no fluctuance, no induration Musculoskeletal: other (left sided hemiparesis) Neurologic: AAOx3 Psychiatric: interacting appropriately ICD10 Worksheet Patient Problems: Problems Problem Status Onset Acute renal failure Acute Dehydration Acute Hematemesis Acute Atrial fibrillation and flutter Active CAD - Coronary arteriosclerosis Active Dyslipidemia Active Essential hypertension Active Gout Active Heart disease Active Morbid obesity Active Peripheral vascular disease Active Ulcer of lower extremity Active Abrasion of left hand Acute COPD exacerbation Acute Chest pain Acute Chronic Disease Mgmt/Transitional Care Acute Contusion of left hand Acute Contusion of left leg Acute Contusion of left shoulder Acute Cough Acute Fall Acute Laceration of left leg Acute Upper GI bleed Acute Viral syndrome Acute
[2018-11-09] MEDS: NS 1,000 ML IV SCH (21:07)
[2018-11-09] MEDS: ATORVASTATIN CALCIUM 40 MG TAB PO SCH (21:07)
[2018-11-09] MEDS: traZODone 50 MG TAB PO SCH (21:08)
[2018-11-09] MEDS: RIVAROXABAN 20 MG TAB PO SCH (21:09)
[2018-11-09] MEDS: LOSARTAN POTASSIUM 25 MG TAB PO SCH (21:10)
[2018-11-10] MEDS: FLUTICASONE/SALMETER 250/50MCG DISKUS IH SCH ×2 (08:04→21:26)
--- NOTE | 2018-11-10 08:42 | PDDCSUM ---
Discharge Summary Discharge Summary: Date of Admission: 11/05/2018 Date of Discharge: 11/10/2018 Consultants: gastroenterology Studies: CT abdomen Procedures: EGD Discharge Diagnoses: 1. Upper GI bleed 2/2 gastritis, resolved 2. H/o CVA with resultant L spastic hemiparesis 3. Polypharmacy 4. Prerenal azotemia, resolving 5. Atrial fibrillation on xarelto 6. CAD s/p CABG 7. 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 Chronic pain with continuous opioid dependency 9. COPD 10. Ventral hernia Brief Hospital Course: 68yo M with h/o CVA with resultant left sided hemiparesis, afib on OAC presented after home health RN noted coffee ground emesis. GI was consulted and he underwent EGD which showed esophagitis and gastritis. Biopsies were negative for H pylori. He was instructed to stay on proton pump inhibitor therapy twice daily for 8 weeks. His anticoagulation was restarted after being briefly held. He had no further hematemesis or melena while here and his H/H remained stable. He did not require any blood transfusions. He was noted to be quite somnolent at times. I am concerned about polypharmacy as he is on several centrally acting medications. I have stopped his klonipin. He needs further medication titration as an outpatient. Our PT and OT services evaluated the patient and recommended SNF. Several referrals to SNFs were made but he was rejected by them. He is being set up with home health RN/PT/OT. He also has [facility] already in place. Medications: Please refer to EMR for complete list. I sent prescription for Pantoprazole 40mg BID. I stopped his Clonazepam. Follow Up Plan: 1. PCP visit in 1 week Physical Exam: Vitals reviewed, normotensive and afebrile. Alert, oriented, left sided paresis, rrr, lungs clear, abdomen soft, no leg edema.
[2018-11-10] MEDS: TOPIRAMATE 25 MG TAB PO SCH (09:24)
[2018-11-10] MEDS: PANTOPRAZOLE SODIUM 40 MG TAB PO SCH ×2 (09:24→20:44)
[2018-11-10] MEDS: FLUoxetine 20 MG CAP PO SCH (09:24)
[2018-11-10] MEDS: morphINE SR 15 MG TAB PO SCH ×2 (09:24→20:07)
[2018-11-10] MEDS: BACLOFEN 10 MG TAB PO SCH ×2 (09:25→20:44)
[2018-11-10] MEDS: SENNOSIDES/DOCUSATE SODIUM TAB PO SCH ×2 (09:25→21:47)
[2018-11-10] MEDS: METOPROLOL TARTRATE 50 MG TAB PO SCH (09:34)
--- NOTE | 2018-11-10 11:01 | ASMTCMCOM ---
BERT Note CM Note Notes: Spoke with Leah from [facility] who had questions about patient's labs. She is chaecking to see if they have a bed available for patient. Leah will call us back. CM will follow. Date Signed: 11/10/2018 11:00 AM Electronically Signed By:Marbella Stahl LCSW
--- NOTE | 2018-11-10 15:21 | PDIAF ---
- Diagnosis Code Status: Do Not Resuscitate - Medication Management Additional Medication Instructions: Start protonix 40mg BID x 8 weeks. Stop klonipin. Discharge Medications: electronically signed and located in the Home Medication List. PICC Care - Routine: N/A - Orders Services needed: Home Care, Registered Nurse, Physical Therapy, Occupational Therapy Home Care Face to Face: I certify that this patient was under my care and that I had the required [id number] encounter meeting the encounter requirements on the discharge day. My findings support the fact that the patient is homebound as defined in Home Care Face to Face Continued: CMS Chapter 7 Medicare Benefits Manual 30.1.1 , The condition of the patient is such that there exists a normal inability to leave home and consequently, leaving home would require a considerable and taxing effort. Isolation Type: None Diet Recommendation: no restrictions on diet Weathers: Not applicable Additional Instructions: I sent prescription for protonix to your pharmacy. You should take this twice daily for 8 weeks. I have stopped your klonipin. I think this medication is leading to more sleepiness. - Follow Up Care Current Providers and Referrals: [facility] [Other] - As per Instructions
--- NOTE | 2018-11-10 17:15 | ASMTCMCOM ---
CM Note CM Note Notes: [facility] called back at 3:00PM to say they would not take the patient due to his labs trending downward and blood being found in the patient's stool. Dr. Irby stated patient has been medically stable and is ready for d/c. The patient became upset that he is denied by [facility] and his nurse Flower called [facility]. had changed to working on d/c to home with [facility] home health support for strengthening and transfers as well as notifying Maximino who agreed to send the nurse out tonight at 6:[address] [facility] told the family on the phone that if his numbers improved they would take him. Labs and notes were sent to [facility] for today. [facility] will not do a late discharge per Leah and still have not confirmed they will actually acept the patient. We are unable to make the discharge happen today.CM to contact Leah Salcido in the AM [phone]. The d/c plan will revert to d/c home with [facility] and [facility], if [facility] says no. This was explained to the family.BERT will follow. Date Signed: 11/10/2018 05:14 PM Electronically Signed By:Marbella Stahl LCSW
--- NOTE | 2018-11-10 17:36 | HOSPPROG ---
Hospitalist Progress Note Assessment/Plan: 68yo M with h/o CVA with resultant left sided hemiparesis, afib on OAC presented after home health RN noted coffee ground emesis. # Upper GI bleed: No further episodes while here. H/H stable. - EGD 11/06 with gastritis, esophagitis - Biopsies negative for H pylori - Continue PO PPI BID, needs for 8 weeks # Acute metabolic/toxic encephalopathy: Resolved. Concern for polypharmacy - Holding PM klonipin - Needs outpatient med titration # H/o CVA with resultant L spastic hemiparesis - PT/OT recommending SNF, patient agreeable - Has home health RN # FRANCISCO: Prerenal, improving and almost back to normal - Avoid nephrotoxins # Hypokalemia: D/t poor PO, better - Replete, placed on protocol, holding lasix # Atrial fibrillation: Rates controlled - Resumed xarelto, cont lopressor # CAD, PVD: Continue home meds # Chronic pain with continuous opioid dependency: Continue home MS contin # COPD: No flare, home inhalers VTE ppx: theapeutic anticoagulation Code: DNR Dispo: Remain inpatient, unsafe to discharge back to home. Rejected by [facility] today. Case management pursuing additional SNF options. Subjective: No BM yesterday. No hematemesis or melena since EGD. No abdominal pain. Wants to leave. Objective: Vital Signs Temp Pulse Resp BP Pulse Ox 36.7 C 71 18 118/82 H 91 L 11/10/18 16:00 11/10/18 16:00 11/10/18 16:00 11/10/18 16:00 11/10/18 16:00 Laboratory Results 11/10/18 04:07 11/10/18 04:07 11/09/18 11/10/18 11/11/18 05:59 05:59 05:59 Intake Total 960 510 240 Output Total 775 1100 300 Balance 185 -590 -60 PT 23.8 SEC (12.0-15.0) H 11/06/18 03:46 INR 2.12 (0.83-1.16) H 11/06/18 03:46 - Physical Exam Constitutional: no apparent distress Eyes: PERRL Ears, Nose, Mouth, Throat: moist mucous membranes Cardiovascular: regular rate and rhythym, no murmur, rub, or gallop Gastrointestinal: normoactive bowel sounds, soft, non-tender abdomen, no palpable masses Genitourinary: no bladder fullness, no bladder tenderness, no renal bruits Skin: no rashes or abrasions, no fluctuance, no induration Musculoskeletal: other (left paresis) Neurologic: AAOx3 Psychiatric: interacting appropriately ICD10 Worksheet Patient Problems: Problems Problem Status Onset Acute renal failure Acute Dehydration Acute Hematemesis Acute Atrial fibrillation and flutter Active CAD - Coronary arteriosclerosis Active Dyslipidemia Active Essential hypertension Active Gout Active Heart disease Active Morbid obesity Active Peripheral vascular disease Active Ulcer of lower extremity Active Abrasion of left hand Acute COPD exacerbation Acute Chest pain Acute Chronic Disease Mgmt/Transitional Care Acute Contusion of left hand Acute Contusion of left leg Acute Contusion of left shoulder Acute Cough Acute Fall Acute Laceration of left leg Acute Upper GI bleed Acute Viral syndrome Acute
[2018-11-10] MEDS: NS 1,000 ML IV SCH (18:29)
[2018-11-10] MEDS ORDERED: POTASSIUM CL 10 MEQ TAB PO ONE (20:40)
[2018-11-10] MEDS: traZODone 50 MG TAB PO SCH (20:44)
[2018-11-10] MEDS: ATORVASTATIN CALCIUM 40 MG TAB PO SCH (20:44)
[2018-11-10] MEDS: RIVAROXABAN 20 MG TAB PO SCH (20:44)
[2018-11-10] MEDS: LOSARTAN POTASSIUM 25 MG TAB PO SCH (20:44)
[2018-11-11] MEDS: NS 1,000 ML IV SCH ×2 (06:24→19:42)
[2018-11-11 09:36] LABS: PLATELET COUNT 120 10^3/uL (150-400)
[2018-11-11] MEDS: morphINE SR 15 MG TAB PO SCH ×2 (09:39→20:45)
[2018-11-11] MEDS: METOPROLOL TARTRATE 50 MG TAB PO SCH (09:40)
[2018-11-11] MEDS: FLUoxetine 20 MG CAP PO SCH (09:43)
[2018-11-11] MEDS: BACLOFEN 10 MG TAB PO SCH ×2 (09:43→20:45)
[2018-11-11] MEDS: TOPIRAMATE 25 MG TAB PO SCH (09:43)
[2018-11-11] MEDS: PANTOPRAZOLE SODIUM 40 MG TAB PO SCH ×2 (09:43→20:45)
[2018-11-11] MEDS: FLUTICASONE/SALMETER 250/50MCG DISKUS IH SCH ×2 (09:45→21:28)
[2018-11-11] MEDS: SENNOSIDES/DOCUSATE SODIUM TAB PO SCH ×2 (09:48→22:19)
--- NOTE | 2018-11-11 15:49 | WOCRNPDOC ---
WOCRN Advanced Assessment Note - Skin Integrity Problem, Advanced Assess Left First Toe Dressing Type: Allevyn Life Exudate Amount: Scant Exudate Characteristic(s): Serosanguinous Integumentary Issue Intervention: Visualized Under Dressing Zena Wound Tissue: Erythema, Macerated Wound Bed Constitution: Adhered Slough (100%) Wound Edges: Attached Site Measurement - Head-to-Toe Length X Width X Depth (cm): 0.5x0.5x0.1 Skin Integrity Problem Comment: Wound bed necrotic. Will initiate autolytic debridement and update orders. Wound care will follow. Right Arm Invasive Line Site Dressing Type: Coban, Gauze, Telfa Dressing Description: Clean/Dry, Intact Exudate Amount: Minimal Exudate Characteristic(s): Sanguinous Integumentary Issue Intervention: Visualized Under Dressing Zena Wound Tissue: Erythema, Indurated Skin Integrity Problem Comment: Appears to be a hematoma, but there may also be component of infiltration in the tissues. Area is tender to the touch and edematous. Tabitha RN in room. Recommend that Hospitalist visualize area. Re- wrapped with light compression to area.
--- NOTE | 2018-11-11 17:01 | ASMTCMCOM ---
CM Note CM Note Notes: CM sent todays labs to [facility], they still decline pt for admission. CM spoke with sister Juventino who would like referral to go to [facility] in [place]. Referral sent and Ingrid from [facility] here to meet with pt and sister. Pt accepted, would like to go today but he has a hematoma that MD wants to ultra sound. Plan is for pt to dc tomorrow am. DC Plan: [facility] Date Signed: 11/11/2018 05:00 PM Electronically Signed By:Zohra Izaguirre RN
--- NOTE | 2018-11-11 19:07 | HOSPPROG ---
Hospitalist Progress Note Assessment/Plan: 68yo M with h/o CVA with resultant left sided hemiparesis, afib on OAC presented after home health RN noted coffee ground emesis. #RUE swelling/Hematoma -appears to be hematoma. Will obtain an Ultrasound for eval # Upper GI bleed: No further episodes while here. H/H stable. - EGD 11/06 with gastritis, esophagitis - Biopsies negative for H pylori - Continue PO PPI BID, needs for 8 weeks # Acute metabolic/toxic encephalopathy: Resolved. Concern for polypharmacy - Holding PM klonipin - Needs outpatient med titration # H/o CVA with resultant L spastic hemiparesis - PT/OT recommending SNF, patient agreeable - Has home health RN # FRANCISCO: Prerenal, improving and almost back to normal - Avoid nephrotoxins # Hypokalemia: D/t poor PO, better - Replete, placed on protocol, holding lasix # Atrial fibrillation: Rates controlled - Resumed xarelto, cont lopressor # CAD, PVD: Continue home meds # Chronic pain with continuous opioid dependency: Continue home MS contin # COPD: No flare, home inhalers VTE ppx: theapeutic anticoagulation Code: DNR Dispo: Remain inpatient. Rejected by [facility] today. Likely to [facility] tomorrow pending US Subjective: nurse reports right UE swelling. tender to touch. no cp or sob. Objective: Vital Signs Temp Pulse Resp BP Pulse Ox 36.3 C 80 18 96/84 H 90 L 11/11/18 15:09 11/11/18 15:09 11/11/18 15:09 11/11/18 15:09 11/11/18 15:09 Laboratory Results 11/11/18 04:17 11/11/18 04:17 11/10/18 11/11/18 11/12/18 05:59 05:59 05:59 Intake Total 510 1140 Output Total 1100 500 125 Balance -590 640 -125 PT 23.8 SEC (12.0-15.0) H 11/06/18 03:46 INR 2.12 (0.83-1.16) H 11/06/18 03:46 - Physical Exam Constitutional: no apparent distress, chronically ill appearing Eyes: PERRL Ears, Nose, Mouth, Throat: moist mucous membranes Cardiovascular: regular rate and rhythym, edema Gastrointestinal: normoactive bowel sounds, soft, non-tender abdomen Skin: warm Neurologic: AAOx3 Psychiatric: interacting appropriately, not anxious, not encephalopathic ICD10 Worksheet Patient Problems: Problems Problem Status Onset Acute renal failure Acute Dehydration Acute Hematemesis Acute Atrial fibrillation and flutter Active CAD - Coronary arteriosclerosis Active Dyslipidemia Active Essential hypertension Active Gout Active Heart disease Active Morbid obesity Active Peripheral vascular disease Active Ulcer of lower extremity Active Abrasion of left hand Acute COPD exacerbation Acute Chest pain Acute Chronic Disease Mgmt/Transitional Care Acute Contusion of left hand Acute Contusion of left leg Acute Contusion of left shoulder Acute Cough Acute Fall Acute Laceration of left leg Acute Upper GI bleed Acute Viral syndrome Acute
[2018-11-11] MEDS: LOSARTAN POTASSIUM 25 MG TAB PO SCH (20:44)
[2018-11-11] MEDS: RIVAROXABAN 20 MG TAB PO SCH (20:44)
[2018-11-11] MEDS: ATORVASTATIN CALCIUM 40 MG TAB PO SCH (20:45)
[2018-11-11] MEDS: traZODone 50 MG TAB PO SCH (20:45)
[2018-11-12] MEDS: FLUTICASONE/SALMETER 250/50MCG DISKUS IH SCH ×3 (08:35→08:43)
[2018-11-12 08:41] VITALS: BP 122/67
[2018-11-12] MEDS: SENNOSIDES/DOCUSATE SODIUM TAB PO SCH (09:06)
[2018-11-12] MEDS: FLUoxetine 20 MG CAP PO SCH (09:06)
[2018-11-12] MEDS: BACLOFEN 10 MG TAB PO SCH (09:06)
[2018-11-12] MEDS: TOPIRAMATE 25 MG TAB PO SCH (09:06)
[2018-11-12] MEDS: morphINE SR 15 MG TAB PO SCH (09:07)
[2018-11-12] MEDS: METOPROLOL TARTRATE 50 MG TAB PO SCH (09:07)
[2018-11-12] MEDS: PANTOPRAZOLE SODIUM 40 MG TAB PO SCH (09:07)
--- NOTE | 2018-11-12 11:27 | PDDCSUM ---
Discharge Summary Discharge Summary: 68yo M with h/o CVA with resultant left sided hemiparesis, afib on OAC presented after home health RN noted coffee ground emesis. He was admitted. Had an EGD on 11/06 which was c/w gastritis and esophagitis. He in on a PPI BID and needs to continue for 8 additional weeks. Protonix has been transmitted to his pharmacy. Klonopin has been held due to confusion. He has a right antecubital hematoma measuring [id number] mm. It has not expanded and is stable. It is mildly tender. This will need to be followed as an op. F/U: with PCP next week DDX #RUE swelling/Hematoma -appears to be hematoma. US negative for clot # Upper GI bleed: No further episodes while here. H/H stable. - EGD 11/06 with gastritis, esophagitis - Biopsies negative for H pylori - Continue PO PPI BID, needs for 8 weeks # Acute metabolic/toxic encephalopathy: Resolved. Concern for polypharmacy - Holding PM klonipin - Needs outpatient med titration # H/o CVA with resultant L spastic hemiparesis - PT/OT recommending SNF, patient agreeable - Has home health RN # FRANCISCO: Prerenal, resolved - Avoid nephrotoxins # Hypokalemia: D/t poor PO, better - replaced # Atrial fibrillation: Rates controlled - Resumed xarelto, cont lopressor # CAD, PVD: Continue home meds # Chronic pain with continuous opioid dependency: Continue home MS contin # COPD: No flare, home inhalers Exam: NAD AAOX3 RRR CTA B S/NT/ND MEDS: SEE MED REC TOTAL TIME SPENT ON D/C IS 35 MINS
--- NOTE | 2018-11-12 11:58 | PDIAF ---
- Diagnosis Diagnosis: UGIB Code Status: Do Not Resuscitate - Medication Management Additional Medication Instructions: Start protonix 40mg BID x 8 weeks. Stop klonipin. Discharge Medications: electronically signed and located in the Home Medication List. PICC Care - Routine: N/A - Orders Services needed: Home Care, Registered Nurse, Physical Therapy, Occupational Therapy Home Care Face to Face: I certify that this patient was under my care and that I had the required [id number] encounter meeting the encounter requirements on the discharge day. My findings support the fact that the patient is homebound as defined in Home Care Face to Face Continued: [facility] Chapter 7 Medicare Benefits Manual 30.1.1 , The condition of the patient is such that there exists a normal inability to leave home and consequently, leaving home would require a considerable and taxing effort. Isolation Type: None Diet Recommendation: no restrictions on diet Diet Texture: Regular Texture Diet Weathers: Not applicable Additional Instructions: I sent prescription for protonix to your pharmacy. You should take this twice daily for 8 weeks. I have stopped your klonipin. I think this medication is leading to more sleepiness. Change dressings to left great toe every 3 days and PRN. 1. Clean with NS and gauze 2. Skin prep betty wound 3. Honey gel to wound bed and cover with border foam dressing or non bordered foam secured with medipore tape. Hayley RIVERA F/U: With your PCP next week. Please have them look at your right arm hematoma as well - Follow Up Care Current Providers and Referrals: [facility] [Other] - As per Instructions
--- NOTE | 2018-11-12 12:08 | ASMTDCNOTE ---
Case Management Discharge Discharge Order Complete? Answers: Yes Patient to Obtain Answers: Other Notes: [facility] Transportation Arranged Answers: Other Notes: [facility] will Pick (Date 11/12/2018 01:00 PM & Time) Faxed Final Orders Answers: Yes Agency/Facility Transfer Answers: Yes Report Printed & Faxed to Receiving Agency Family Notified Answers: Yes Discharge Comments Notes: D/w , cleared for SNF. Ingrid at [facility] notified, coal picker at 1pm, RN to call report. Date Signed: 11/12/2018 12:07 PM Electronically Signed By:Zohra Izaguirre RN
--- NOTE | 2018-11-12 13:48 | ASDISCHSUM ---
Discharge Information Plan Status:SNF Medically Cleared to Leave: Discharge Date:11/12/2018 01:34 PM D/C [facility] D[facility]C Disposition[facility] Projected Discharge Date:11/10/2018 11:00 AM Transportation at D/C:Wheelchair Van Discharge Delay Reason: Follow-Up Date:11/10/2018 11:00 AM Discharge Slot: Final Diagnosis: Placement Information Referral Type:*Home Health Care Services Referral ID:[id number] Provider Name: Address 1: Phone Number: Address 2: Fax Number: City: Selection Factors: State: Referral Type:*[facility]/SNF Referral ID:[id number] Provider Name:[facility] [place] Address 1:[address] [facility] Phone Number: Address 2: Fax Number: [facility]:[place] Selection Factors: State:[place] Patient Contact Information Contact Name:KAMAR Relationship:Sister Address:[address] [place] [address] Work Phone: City:[place] Alternate Phone: State/Zip Code:[place] [address] Email: Financial Information Financial Class:Medicare Primary Plan Desc:MEDICARE INPATIENT Primary Plan Number:[id number] Secondary Plan Desc:MED[place] Secondary Plan Number:[id number] Assessment Information [facility] CM Progress Note CM Note CM Note Notes: Chart reviewed and visited with marcelle. Pt has a history of CVA (2012) with a left hemiparesis and uses an electric w/c. He lives in and apartment on his own and [facility] ([phone][facility] and Flower RIOS ([phone]) is his nurse who comes M/W/F. Pt also has Aides for 4hrs in the morning & and night. He recently fired his noc aide. Pt is adamant about returning home w/ services. Ot recomends Home care and PT to evaluate Pt. CM will continue to monitor needs. PLAN: Discharge home with [facility] Date Signed: 11/07/2018 11:34 AM Electronically Signed By:Zohra Izaguirre RN [facility] Progress Note CM Note CM Note Notes: Met with patient and his sister/DRE Jauregui to discuss rehab. They requested a referral to [facility], stating that patient has been there before. Per Juventino, the PT today mentioned that patient may benefit from rehab. I also encouraged them to consider other facilities if they really want to pursue rehab. They will check w patient's homecare RN regarding the suggestions I gave them. Otherwise, I assume that patient will return home with [facility] and his private duty help. Case Managment will follow. Date Signed: 11/08/2018 03:41 PM Electronically Signed By:Shaista Sanchez RN CODEY CODEY Acuity / Level of Answers: Yes Care: Did the patient have an inpatient admission? Comorbidities - select Answers: Cerebrovascular disease all that apply (CVA, TIA, aneurysms, vasc ular dementia) Chronic pulmonary disease Coronary Artery Disease Opioid dependence / Chronic pain Other Notes: AFib; Hx of CABG # of Emergency department Answers: 3-4 visits in the last 6 months Score: 16 Date Signed: 11/09/2018 10:38 AM Electronically Signed By:Therese Stoner [facility] BERT Progress Note CM Note BERT Note Notes: Spoke with Leah from [facility] who had questions about patient's labs. She is chaecking to see if they have a bed available for patient. Leah will call us back. CM will follow. Date Signed: 11/10/2018 11:00 AM Electronically Signed By:Marbella Stahl LCSW [facility] Progress Note BERT Note BERT Note Notes: [facility] called back at 3:00PM to say they would not take the patient due to his labs trending downward and blood being found in the patient's stool. Dr. Irby stated patient has been medically stable and is ready for d/c. The patient became upset that he is denied by [facility] and his nurse Flower called [facility]. had changed to working on d/c to home with [facility] home health support for strengthening and transfers as well as notifying Maximino who agreed to send the nurse out tonight at 6:30 PM. [facility] told the family on the phone that if his numbers improved they would take him. Labs and notes were sent to [facility] for today. [facility] will not do a late discharge per Leah and still have not confirmed they will actually acept the patient. We are unable to make the discharge happen today.CM to contact [facility] Marie Leah in the AM [phone]. The d/c plan will revert to d/c home with [facility] if [facility] says no. This was explained to the family.CM will follow. Date Signed: 11/10/2018 05:14 PM Electronically Signed By:Marbella Stahl LCSW [facility] CM Progress Note CM Note CM Note Notes: [facility], they still decline pt for admission. CM spoke with sister Juventino who would like referral to go to [facility] in [place]. Referral sent and Ingrid from [facility] here to meet with pt and sister. Pt accepted, would like to go today but he has a hematoma that MD wants to ultra sound. Plan is for pt to dc tomorrow am. DC Plan: [facility] Date Signed: 11/11/2018 05:00 PM Electronically Signed By:Zohra Izaguirre RN Case Management Discharge Plan Note Case Management Discharge Discharge Order Complete? Answers: Yes Patient to Obtain Answers: Other Notes: [facility] Transportation Arranged Answers: Other Notes: [facility] will Pick (Date 11/12/2018 01:00 PM & Time) Faxed Final Orders Answers: Yes Agency/Facility Transfer Answers: Yes Report Printed & Faxed to Receiving Agency Family Notified Answers: Yes Discharge Comments Notes: D/w , cleared for SNF. Ingrid at [facility] notified, moss picker at 1pm, RN to call report. Date Signed: 11/12/2018 12:07 PM Electronically Signed By:Zohra Izaguirre RN Intervention Information Intervention Type:*IM-Signed Date of Service:11/12/2018 11:50 AM Patient Type:Inpatient Staff Member:Therese Stoner Hours: Discipline: Severity: Comment:
== END 2018-11-12 13:34 | DRG 377 ==
LOC: EDUNIT# → F2W 11-06 01:36 → F3E 11-06 08:11 → OBSVTOIN 11-07 16:06
PROVIDERS: ADMIT Family Medicine; ATTEND Family Medicine
PROC: 0DB68ZX Excision of Stomach, Via Natural or Artificial Opening Endoscopic, Diagnostic (ICD-10-PCS; principal; 2018-11-06 12:00)
DX: K29.71 Gastritis, unspecified, with bleeding (principal); G92 Toxic encephalopathy; L89.153 Pressure ulcer of sacral region, stage 3; F11.20 Opioid dependence, uncomplicated; N17.9 Acute kidney failure, unspecified; I69.352 Hemiplegia and hemiparesis following cerebral infarction affecting left dominant side; T82.898A Other specified complication of vascular prosthetic devices, implants and grafts, initial encounter; L76.32 Postprocedural hematoma of skin and subcutaneous tissue following other procedure; Y82.8 Other medical devices associated with adverse incidents; K20.9 Esophagitis, unspecified; E86.0 Dehydration; G89.29 Other chronic pain; E87.6 Hypokalemia; I48.91 Unspecified atrial fibrillation; I25.10 Atherosclerotic heart disease of native coronary artery without angina pectoris; J44.9 Chronic obstructive pulmonary disease, unspecified; K43.9 Ventral hernia without obstruction or gangrene; Z95.1 Presence of aortocoronary bypass graft; Z79.01 Long term (current) use of anticoagulants; Z99.3 Dependence on wheelchair; Z66 Do not resuscitate
CPT/HCPCS: 96374; 97110-GP; 97162-GP; 97166-GO; 97530-GO; 97530-GP; G0378; J2001; J2704; J3010; Q9967

== ENCOUNTER 2019-01-06 14:29 | Inpatient (IN) | payer OTHER, MEDICAID ==
[2019-01-06] MEDS ORDERED: NS 1,000 ML IV ONE (15:29)
[2019-01-06] MEDS ORDERED: PROMETHAZINE HCL 25 MG/ML INJ IVP ONE (15:29)
--- NOTE | 2019-01-06 15:33 | EDPHY ---
H & P Stated Complaint: vomited 3x green emesis today Time Seen by Provider: 01/06/19 15:16 HPI/ROS: CHIEF COMPLAINT: Vomiting HISTORY OF PRESENT ILLNESS: 68-year-old male with prior CVA presents with vomiting. Onset of vomiting yesterday evening, unable to tolerate oral fluids since. Associated with 3 episodes of watery diarrhea and moderate generalized weakness. Episode of chest pain early this morning, relieved with NTGx1. No abdominal pain or fever. Lives in his own home, has a home healthcare nurse. Wheelchair bound. REVIEW OF SYSTEMS: complete 10 point ROS reviewed and is negative except for the noted elements in the HPI - Personal History Tetanus Vaccine Date: ALLERGY - Medical/Surgical History Hx Asthma: Yes Hx Chronic Respiratory Disease: Yes Hx Diabetes: No Hx Cardiac Disease: Yes Hx Renal Disease: No Hx Cirrhosis: No Hx Alcoholism: No Hx HIV/AIDS: No Hx Splenectomy or Spleen Trauma: No Other PMH: FEMORAL BYPASS, CVA left weakness, CABG, [place], CHF, ORTHO (femur fx), W /C bound, GI Bleed, Left Ankle broken, - Social History Smoking Status: Former smoker Alcohol Use: Sober Drug Use: None - Physical Exam Exam: General Appearance: Alert, pleasant Eyes: Pupils equal and round, no conjunctival pallor or injection ENT, Mouth: Mucous membranes dry Neck: Normal inspection Respiratory: Lungs are clear to auscultation Cardiovascular: Regular rate and rhythm Gastrointestinal: Abdomen is soft and nontender Neurological: A&O, left hemiplegia Skin: Warm and dry Extremities: Left hand contracture, no swelling Psychiatric: Mood and affect normal Constitutional: Initial Vital Signs Temperature (C) 36.5 C 01/06/19 14:33 Heart Rate 82 01/06/19 14:33 Respiratory Rate 16 01/06/19 14:33 Blood Pressure 119/71 01/06/19 14:33 O2 Sat (%) 94 01/06/19 14:33 O2 Delivery Mode Room Air Allergies/Adverse Reactions: Horse/Equine Containing Products [Horse/Equine Product Derivatives] Allergy ( Severe, Verified 01/06/19 14:36) SWELLING Tetanus Vaccines and Toxoid [Tetanus] Allergy (Severe, Verified 01/06/19 14:36) SWELLING bee pollen [Bee Pollen] Allergy (Intermediate, Verified 01/06/19 14:36) SWELLING gabapentin Allergy (Verified 01/06/19 14:36) Other-Enter Comments Home Medications: Medication Instructions Recorded Atorvastatin Calcium [Lipitor 40 40 mg PO HS 02/12/15 mg (*)] Metoprolol Tartrate [Lopressor 50 100 mg PO DAILY 02/12/15 mg (*)] Nitroglycerin [Nitrostat 0.4 mg 0.4 mg SL PRN PRN 02/12/15 (*)] morphINE SR [Ms Contin/Oramorph 15 15 mg PO BID 02/12/15 mg (*)] Fluticasone/Salmeter 250/50Mcg 2 puffs IH BID 11/27/15 [Advair 250/50 (*)] Furosemide [Lasix 20 MG (*)] 20 mg PO DAILY 11/27/15 Losartan Potassium [Cozaar 25 mg 25 mg PO HS 11/27/15 (*)] Nystatin [Nyamyc] 100,000 units TP BID PRN 11/27/15 Topiramate 50 mg PO HS 11/27/15 FLUoxetine [Prozac 20 MG (*)] 20 mg PO DAILY 04/10/16 traZODone [traZODONE 50MG (*)] 50 mg PO HS 08/13/18 Rivaroxaban [Xarelto] 20 mg PO HS 10/22/18 Betamethasone/Propylene Glyc 1 gm TP DAILY PRN 01/06/19 [Betamethasone Dp Aug 0.05% Crm] Metoprolol Tartrate [Lopressor 50 25 mg PO HS 01/06/19 mg (*)] Medical Decision Making - Diagnostics EKG Interpretation: EKG interpreted by me reveals NSR, rate 88, short AK, nonspecific repol changes. Interpretation: abrnormal EKG ED Course/Re-evaluation: This patient presents with vomiting and diarrhea. IV normal saline and Phenergan 12.5 mg IV given. Declines Zofran. Son requests admission. 1620: Reexamine patient, quite drowsy after Phenergan, abdominal exam remains benign. Laboratory tests discussed with the patient. Will admit for observation, given his frail state and now excessive drowsiness after Phenergan. No indication for abdominal imaging. The hospitalist service was consulted for admission. Differential Diagnosis: Differential diagnosis includes though it is not limited to appendicitis, cholecystitis, diverticulitis, pyelonephritis, bowel perforation, small bowel obstruction. - Data Points Laboratory Results: Laboratory Results 01/06/19 14:55 01/06/19 14:55 Medications Given: Atorvastatin Calcium (Lipitor) 40 mg PO HS [facility] Stop: 07/05/19 20:59 Last Admin: 01/06/19 21:41 Dose: 40 mg Fluoxetine HCl (Prozac) 20 mg PO DAILY [facility] Stop: 07/06/19 08:59 Last Admin: 01/07/19 11:51 Dose: Not Given Furosemide (Lasix) 20 mg PO DAILY [facility] Stop: 07/06/19 08:59 Last Admin: 01/07/19 11:51 Dose: Not Given Losartan Potassium (Cozaar) 25 mg PO HS [facility] Stop: 07/05/19 20:59 Last Admin: 01/06/19 21:41 Dose: 25 mg Metoprolol Tartrate (Lopressor) 100 mg PO DAILY [facility] Stop: 07/06/19 08:59 Last Admin: 01/07/19 11:51 Dose: Not Given Metoprolol Tartrate (Lopressor) 25 mg PO HS [facility] Stop: 07/05/19 20:59 Last Admin: 01/06/19 22:04 Dose: Not Given Morphine Sulfate (Ms Contin/Oramorph) 15 mg PO BID [facility] Stop: 01/16/19 20:59 Last Admin: 01/07/19 11:52 Dose: Not Given Promethazine HCl (Phenergan) 6.25 mg IVP Q6HRS PRN PRN Reason: Nausea/Vomiting, Can't Take PO Stop: 07/05/19 17:34 Last Admin: 01/06/19 23:24 Dose: 6.25 mg Rivaroxaban (Xarelto) 20 mg PO HS [facility] Stop: 07/05/19 20:59 Last Admin: 01/06/19 21:42 Dose: 20 mg Fluticasone/Salmeterol (Advair) 2 puffs IH BID [facility] Stop: 07/05/19 20:59 Last Admin: 01/07/19 08:50 Dose: 2 puffs Topiramate (Topamax) 50 mg PO HS [facility] Stop: 07/05/19 20:59 Last Admin: 01/06/19 21:41 Dose: 50 mg Trazodone HCl (Trazodone) 50 mg PO HS [facility] Stop: 07/05/19 20:59 Last Admin: 01/06/19 21:41 Dose: 50 mg Discontinued Medications Sodium Chloride (Ns) 1,000 mls @ 0 mls/hr IV EDNOW ONE; Wide Open PRN Reason: Protocol Stop: 01/06/19 15:30 Last Admin: 01/06/19 15:40 Dose: 1,000 mls Sodium Chloride (Ns) 1,000 mls @ 100 mls/hr IV CONT [facility] Stop: 01/07/19 03:44 Last Admin: 01/06/19 19:20 Dose: 1,000 mls Promethazine HCl (Phenergan) 12.5 mg IVP EDNOW ONE Stop: 01/06/19 15:30 Last Admin: 01/06/19 15:40 Dose: 12.5 mg Point of Care Test Results: Chemistry 01/06/19 15:50 POC Troponin I 0.01 ng/mL ng/mL (0.00-0.08) Departure - Departure Disposition: [facility] Acute Clinical Impression: Dehydration Vomiting Qualifiers: Vomiting type: unspecified Vomiting Intractability: non-intractable Nausea presence: with nausea Qualified Code(s): R11.2 - Nausea with vomiting, unspecified Condition: Fair
[2019-01-06 15:41] LABS: PLATELET COUNT 209 10^3/uL (150-400)
[2019-01-06] MEDS ORDERED: ONDANSETRON DISINTEGRATING 4 MG TAB PO PRN (17:33)
[2019-01-06] MEDS ORDERED: ONDANSETRON 4 MG/2 ML VIAL IVP PRN (17:33)
[2019-01-06] MEDS ORDERED: ACETAMINOPHEN 325 MG TAB PO PRN (17:33)
[2019-01-06] MEDS ORDERED: PROMETHAZINE HCL 25 MG/ML INJ IVP PRN (17:35)
--- NOTE | 2019-01-06 17:44 | CPEKG ---
Test Reason : OPEN Blood Pressure : / mmHG Vent. Rate : 088 BPM Atrial Rate : 199 BPM P-R Int : 095 ms QRS Dur : 101 ms QT Int : 411 ms P-R-T Axes : 000 054 260 degrees QTc Int : 498 ms Sinus rhythm Short OH interval Nonspecific repol abnormality, diffuse leads Confirmed by Marjorie Lopez ([id number]) on 01/06/2019 5:44:02 PM Referred By: PHYSICIAN ED Confirmed By:Marjorie Lopez
[2019-01-06] MEDS ORDERED: NS 1,000 ML IV SCH (17:45)
--- NOTE | 2019-01-06 17:57 | PDGENHP ---
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 He also has complaints of generalized weakness. Since this time he has been unable to tolerate oral fluids. He also complained of onset of chest pain while eating today which was relieved with 1 nitro tablet. He typically does not get chronic angina symptoms so this chest pain is new to him , initial troponin is negative. He had similar symptoms in 2016 and had a Lexiscan which showed an abnormal stress test with infarction versus reversible ischemia involving the distal anterior wall and left lateral wall, global hypokinesis and distal anterior wall dyskinesis and the left ventricular ejection 35% and it was discussed at that time to continue current cardiac medications, consider dual anti-platelet therapy, resume his warfarin at that time due to his history of paroxysmal atrial fibrillation however he now takes Xarelto, in addition to adding long acting nitrate as initial steps if he develops chest pain episodes more typical anginal in nature. The patient received Phenergan for his nausea in the emergency room and was thought to be somnolent however I believe this to be his baseline as noted in previous admissions. During my evaluation with the patient, he appeared groggy and irritable answering my questions. He was unable to tell me exact location of where he felt his anterior nonradiating chest pain but it was left-sided and is CP free now. He denies shortness of breath, fever, chills, dysuria. He is being admitted for further workup, treatment and monitoring. History Information - Allergies/Home Medication List Allergies/Adverse Reactions: Horse/Equine Containing Products [Horse/Equine Product Derivatives] Allergy ( Severe, Verified 01/06/19 14:36) SWELLING Tetanus Vaccines and Toxoid [Tetanus] Allergy (Severe, Verified 01/06/19 14:36) SWELLING bee pollen [Bee Pollen] Allergy (Intermediate, Verified 01/06/19 14:36) SWELLING gabapentin Allergy (Verified 01/06/19 14:36) Other-Enter Comments Home Medications: Atorvastatin Calcium [Lipitor 40 mg (*)] 40 mg PO HS 02/12/15 [Last Taken ] Metoprolol Tartrate [Lopressor 50 mg (*)] 100 mg PO DAILY 02/12/15 [Last Taken 01/05/19] Nitroglycerin [Nitrostat 0.4 mg (*)] 0.4 mg SL PRN PRN 02/12/15 [Last Taken 10:00] morphINE SR [Ms Contin/Oramorph 15 mg (*)] 15 mg PO BID 02/12/15 [Last Taken 08:00] Fluticasone/Salmeter 250/50Mcg [Advair 250/50 (*)] 2 puffs IH BID 11/27/15 [ Last Taken 01/05/19] Furosemide [Lasix 20 MG (*)] 20 mg PO DAILY 11/27/15 [Last Taken 01/05/19] Losartan Potassium [Cozaar 25 mg (*)] 25 mg PO HS 11/27/15 [Last Taken 01/05/19] Nystatin [Nyamyc] 100,000 units TP BID PRN 11/27/15 [Last Taken 05/24/16] Topiramate 50 mg PO HS 11/27/15 [Last Taken 01/05/19] FLUoxetine [Prozac 20 MG (*)] 20 mg PO DAILY 04/10/16 [Last Taken 01/05/19] traZODone [traZODONE 50MG (*)] 50 mg PO HS 08/13/18 [Last Taken 01/05/19] Rivaroxaban [Xarelto] 20 mg PO HS 10/22/18 [Last Taken 01/05/19] Betamethasone/Propylene Glyc [Betamethasone Dp Aug 0.05% Crm] 1 gm TP DAILY PRN 01/06/19 [Last Taken Unknown] Metoprolol Tartrate [Lopressor 50 mg (*)] 25 mg PO HS 01/06/19 [Last Taken 01/05] I have personally reviewed and updated: family history, medical history, social history, surgical history - Past Medical History coronary artery disease, CVA, GI bleed, myocardial infarction Additional medical history: Atrial fibrillation on Xarelto, chronic pain, history of CVA with left-sided hemiplegia - Surgical History Reports: coronary bypass surgery, coronary stent Additional surgical history: Femur fracture - Family History Positive for: myocardial infarction - Social History Smoking Status: Former smoker Alcohol Use: Sober Drug Use: None Additional social history: He is wheelchair-bound. His sister lives next door to him and assists with care. He has a home health nurse also assist with his care Review of Systems Review of Systems: ROS: 10pt was reviewed & negative except for what was stated in HPI & below Physical Exam Physical Exam: Lab data and imaging were reviewed. White blood count: 12.06 Hemoglobin hematocrit: 15.4 and 45.7 Platelet count: 209 Sodium: 140 Potassium: 4.00 Chloride: 106 Carbon dioxide: 22 BUN/Cr: 18/1.0 Troponin: 0.01 Lipase: 358 EKG: SR, normal axis deviation, no significant ST elevation or depression Temp Pulse Resp BP Pulse Ox 36.7 C 86 16 126/83 H 91 L 01/06/19 17:39 01/06/19 17:39 01/06/19 17:39 01/06/19 17:39 01/06/19 17:39 Constitutional: chronically ill appearing, uncomfortable Eyes: PERRL, anicteric sclera, EOMI Ears, Nose, Mouth, Throat: moist mucous membranes, hearing normal, ears appear normal, no oral mucosal ulcers Cardiovascular: regular rate and rhythym, no murmur, rub, or gallop Peripheral Pulses: 1+: dorsalis-pedis (R), dorsalis-pedis (L) Respiratory: reduced air movement Gastrointestinal: normoactive bowel sounds, soft, non-tender abdomen, no palpable masses Genitourinary: no bladder fullness, no bladder tenderness Skin: warm, normal color, no rashes or abrasions, no fluctuance, no induration, No mottled Musculoskeletal: generalized weakness, other (Left hand contracted) Neurologic: AAOx3, sensation intact bilaterally, other (Hx of CVA w/residual left sided weakness) Psychiatric: not encephalopathic, thought process linear, flat affect Lymph, Heme, Immunologic: no cervical LAD, no supraclavicular LAD Lab Data & Imaging Review 01/06/19 14:55 01/06/19 14:55 WBC 12.06 10^3/uL (3.80-9.50) H 01/06/19 14:55 RBC 5.40 10^6/uL (4.40-6.38) 01/06/19 14:55 Hgb 15.4 g/dL (13.7-17.5) 01/06/19 14:55 Hct 45.7 % (40.0-51.0) 01/06/19 14:55 MCV 84.6 fL (81.5-99.8) 01/06/19 14:55 MCH 28.5 pg (27.9-34.1) 01/06/19 14:55 MCHC 33.7 g/dL (32.4-36.7) 01/06/19 14:55 RDW 18.4 % (11.5-15.2) H 01/06/19 14:55 Plt Count 209 10^3/uL (150-400) 01/06/19 14:55 MPV 10.9 fL (8.7-11.7) 01/06/19 14:55 Neut % (Auto) 87.4 % (39.3-74.2) H 01/06/19 14:55 Lymph % (Auto) 5.0 % (15.0-45.0) L 01/06/19 14:55 [place] % (Auto) 6.1 % (4.5-13.0) 01/06/19 14:55 Eos % (Auto) 0.2 % (0.6-7.6) L 01/06/19 14:55 Baso % (Auto) 0.6 % (0.3-1.7) 01/06/19 14:55 Nucleat RBC Rel Count 0.0 % (0.0-0.2) 01/06/19 14:55 Absolute Neuts (auto) 10.54 10^3/uL (1.70-6.50) H 01/06/19 14:55 Absolute Lymphs (auto) 0.60 10^3/uL (1.00-3.00) L 01/06/19 14:55 Absolute Monos (auto) 0.74 10^3/uL (0.30-0.80) 01/06/19 14:55 Absolute Eos (auto) 0.03 10^3/uL (0.03-0.40) 01/06/19 14:55 Absolute Basos (auto) 0.07 10^3/uL (0.02-0.10) 01/06/19 14:55 Absolute Nucleated RBC 0.00 10^3/uL (0-0.01) 01/06/19 14:55 Immature Gran % 0.7 % (0.0-1.1) 01/06/19 14:55 Immature Gran # 0.08 10^3/uL (0.00-0.10) 01/06/19 14:55 Sodium 140 mEq/L (135-145) 01/06/19 14:55 Potassium 4.0 mEq/L (3.5-5.2) 01/06/19 14:55 Chloride 106 mEq/L (97-110) 01/06/19 14:55 Carbon Dioxide 22 mEq/l (22-31) 01/06/19 14:55 Anion Gap 12 mEq/L (6-14) 01/06/19 14:55 BUN 18 mg/dL (7-23) 01/06/19 14:55 Creatinine 1.0 mg/dL (0.7-1.3) 01/06/19 14:55 Estimated GFR > 60 01/06/19 14:55 Glucose 136 mg/dL (70-100) H 01/06/19 14:55 Calcium 9.4 mg/dL (8.5-10.4) 01/06/19 14:55 Total Bilirubin 1.8 mg/dL (0.1-1.4) H 01/06/19 14:55 Conjugated Bilirubin 0.3 mg/dL (0.0-0.5) 01/06/19 14:55 Unconjugated Bilirubin 1.5 mg/dL (0.0-1.1) H 01/06/19 14:55 AST 28 IU/L (17-59) 01/06/19 14:55 ALT 33 IU/L (21-72) 01/06/19 14:55 Alkaline Phosphatase 93 IU/L (38-126) 01/06/19 14:55 POC Troponin I 0.01 ng/mL (0.00-0.08) 01/06/19 15:50 Total Protein 7.5 g/dL (6.3-8.2) 01/06/19 14:55 Albumin 3.9 g/dL (3.5-5.0) 01/06/19 14:55 Lipase 358 IU/L (23-300) H 01/06/19 14:55 Assessment & Plan Plan: 68 y/o male w/hx of CVA and residual left sided weakness, hemiplegia, CABG, CAD s/p stenting, hx of [place], PAF, and wheelchair bound presents to the ED w/vomiting and diarrhea that started yesterday evening. He also c/o chest pain when he was eating however this resolved when he took one tablet of nitroglycerin. Chest pain is not a chronic occurrence for him. His vital signs are the following: Blood pressure 126/83, heart rate 86, respiration 16, oxygen saturation room air 91%, temperature 36.7 degrees. #Chest pain -Pt has an extensive cardiac history and was worked up for similar symptoms in 2015 w/cards consult and Lexiscan. Per records, pt is difficult to cath d/t his extensive vascular disease posing technical challenges and increased risk of complications:underwent an attempted PCI in March 2015 of his chronic total occlusion of the LAD which was unsuccessful. Came back in April and ultimately had a successful PCI by using his femoral access seeing how he is s/ p aortobifemoral bypass. -Cards consulted and will consult pt in AM; spoke to Dr. Bryan. -Cycle trops x 2; cycle EKG x 1 and then PRN if symptomatic -Cont tele -Lexiscan in AM -Creatinine in AM -Initiate long acting nitrate? Will await Lexiscan and cards recommendation #Vomiting and diarrhea -Uncertain etiology; GI pathogen panel pending -Anti-emetics -Received IVF in ED; will cont IVF x 1 bag -WBC in AM; mild leukocytosis, afebrile #CAD s/p CABG: femoral bypass, per records quite difficult to cath d/t extensive vascular disease and high risk of thromboembolic event. #Hx of CVA/generalized weakness -PT/OT to evaluate and treat pt -DAPT consideration? Will defer to cards recommendation #Paroxysmal atrial fibrillation -Cont tele -Cont home Xarelto Will cont home medications once reconcile by pharmacy Diet: Cardiac VTE ppx: Xarelto Code: Full Dispo: Admit to obs <Serafin Irby - Last Filed: 01/06/19 20:15> History and Physical - History of Present Illness Review of Systems Review of Systems: Physical Exam Physical Exam: Temp Pulse Resp BP Pulse Ox 36.7 C 86 16 126/83 H 91 L 01/06/19 17:39 01/06/19 17:39 01/06/19 17:39 01/06/19 17:39 01/06/19 17:39 Lab Data & Imaging Review 01/06/19 14:55 01/06/19 14:55 WBC 12.06 10^3/uL (3.80-9.50) H 01/06/19 14:55 RBC 5.40 10^6/uL (4.40-6.38) 01/06/19 14:55 Hgb 15.4 g/dL (13.7-17.5) 01/06/19 14:55 Hct 45.7 % (40.0-51.0) 01/06/19 14:55 MCV 84.6 fL (81.5-99.8) 01/06/19 14:55 MCH 28.5 pg (27.9-34.1) 01/06/19 14:55 MCHC 33.7 g/dL (32.4-36.7) 01/06/19 14:55 RDW 18.4 % (11.5-15.2) H 01/06/19 14:55 Plt Count 209 10^3/uL (150-400) 01/06/19 14:55 MPV 10.9 fL (8.7-11.7) 01/06/19 14:55 Neut % (Auto) 87.4 % (39.3-74.2) H 01/06/19 14:55 Lymph % (Auto) 5.0 % (15.0-45.0) L 01/06/19 14:55 [place] % (Auto) 6.1 % (4.5-13.0) 01/06/19 14:55 Eos % (Auto) 0.2 % (0.6-7.6) L 01/06/19 14:55 Baso % (Auto) 0.6 % (0.3-1.7) 01/06/19 14:55 Nucleat RBC Rel Count 0.0 % (0.0-0.2) 01/06/19 14:55 Absolute Neuts (auto) 10.54 10^3/uL (1.70-6.50) H 01/06/19 14:55 Absolute Lymphs (auto) 0.60 10^3/uL (1.00-3.00) L 01/06/19 14:55 Absolute Monos (auto) 0.74 10^3/uL (0.30-0.80) 01/06/19 14:55 Absolute Eos (auto) 0.03 10^3/uL (0.03-0.40) 01/06/19 14:55 Absolute Basos (auto) 0.07 10^3/uL (0.02-0.10) 01/06/19 14:55 Absolute Nucleated RBC 0.00 10^3/uL (0-0.01) 01/06/19 14:55 Immature Gran % 0.7 % (0.0-1.1) 01/06/19 14:55 Immature Gran # 0.08 10^3/uL (0.00-0.10) 01/06/19 14:55 Sodium 140 mEq/L (135-145) 01/06/19 14:55 Potassium 4.0 mEq/L (3.5-5.2) 01/06/19 14:55 Chloride 106 mEq/L (97-110) 01/06/19 14:55 Carbon Dioxide 22 mEq/l (22-31) 01/06/19 14:55 Anion Gap 12 mEq/L (6-14) 01/06/19 14:55 BUN 18 mg/dL (7-23) 01/06/19 14:55 Creatinine 1.0 mg/dL (0.7-1.3) 01/06/19 14:55 Estimated GFR > 60 01/06/19 14:55 Glucose 136 mg/dL (70-100) H 01/06/19 14:55 Calcium 9.4 mg/dL (8.5-10.4) 01/06/19 14:55 Total Bilirubin 1.8 mg/dL (0.1-1.4) H 01/06/19 14:55 Conjugated Bilirubin 0.3 mg/dL (0.0-0.5) 01/06/19 14:55 Unconjugated Bilirubin 1.5 mg/dL (0.0-1.1) H 01/06/19 14:55 AST 28 IU/L (17-59) 01/06/19 14:55 ALT 33 IU/L (21-72) 01/06/19 14:55 Alkaline Phosphatase 93 IU/L (38-126) 01/06/19 14:55 POC Troponin I 0.01 ng/mL (0.00-0.08) 01/06/19 15:50 Total Protein 7.5 g/dL (6.3-8.2) 01/06/19 14:55 Albumin 3.9 g/dL (3.5-5.0) 01/06/19 14:55 Lipase 358 IU/L (23-300) H 01/06/19 14:55 Assessment & Plan Plan: Chart reviewed, patient personally examined, and case discussed with Sandra Levin NP. Agree with plan outlined above. Please see my separate note for further details.
--- NOTE | 2019-01-06 18:57 | HOSPPROG ---
Hospitalist Progress Note Assessment/Plan: Case discussed with Sandra Levin ROVING CHANGER. Agree with her plan with the following exceptions: Briefly, 68yo M with CAD s/p CABG and more recent PCI, severe PVD s/p aortofemoral bypass, CVA with resultant left sided deficits presents from home with acute onset vomiting and diarrhea. Symptoms started this morning. No fevers /chills or abdominal pain. Interestingly, he also reports 3-4 days of substernal chest pain that is relieved by sublingual nitroglycerin. Exam: No distress. Alert and oriented. Distant heart sounds but rrr, no murmur. Lungs clear. No leg edema. L sided hemiparesis. Labs: WBC 12k, Cr 1.0, POC troponin 0.01. ECG: Sinus rhythm, inferior Q waves, diffuse non-specific ST-T wave abnormalities, no ST segment elevations. Assessment/Plan: #Chest pain: Possible that this is cardiac in nature. Serial trop/ecg. Telemetry. Lexiscan stress w/NM ordered. Cardiology consulted, will see in AM. Notably, had similar presentation in 2016. Equivocal stress test at that time. Coronary angiography was not pursued due to extremely challenging vascular access and chronic occlusive disease. Nonetheless, a stress test may be helpful prognostically. If his symptoms are felt to be due to worsening angina and no angiography is pursued, would start on long-acting nitrate or calcium channel jazmin. #Vomiting, diarrhea: Benign exam, LFTs and lipase ok. Hold on imaging. Check GI PCR. Supportive care. #CAD s/p CABG in 1997, PCI to CTA of LAD in 2014: Not on aspirin/antiplatelet due to h/o several GI bleeds and also on AC. Continue statin, metoprolol. #Atrial fibrillation: On xarelto for stroke prevention. #Severe PVD s/p aortofemoral bypass #H/o CVA with resultant left sided deficits: Lives alone. Sister lives next door and helps out. Also has home health. #Chronic pain with continuous opioid dependence: Home meds Dispo: Admit under observation Objective: Vital Signs Temp Pulse Resp BP Pulse Ox 36.7 C 86 16 126/83 H 91 L 01/06/19 17:39 01/06/19 17:39 01/06/19 17:39 01/06/19 17:39 01/06/19 17:39 ICD10 Worksheet Patient Problems: Problems Problem Status Onset Atrial fibrillation and flutter Active CAD - Coronary arteriosclerosis Active Dyslipidemia Active Essential hypertension Active Gout Active Heart disease Active Morbid obesity Active Peripheral vascular disease Active Ulcer of lower extremity Active Abrasion of left hand Acute Acute renal failure Acute COPD exacerbation Acute Chest pain Acute Chronic Disease Mgmt/Transitional Care Acute Contusion of left hand Acute Contusion of left leg Acute Contusion of left shoulder Acute Cough Acute Dehydration Acute Fall Acute Hematemesis Acute Laceration of left leg Acute Upper GI bleed Acute Viral syndrome Acute
[2019-01-06] MEDS ORDERED: NITROGLYCERIN 0.4 MG BTL SL PRN (19:42)
[2019-01-06] MEDS ORDERED: NYSTATIN POWDER 15 GM BTL TP PRN (19:42)
[2019-01-06] MEDS ORDERED: BETAMETHASONE AUGMENTED 0.05% 15GM CREAM TP PRN (19:42)
[2019-01-06] MEDS: LOSARTAN POTASSIUM 25 MG TAB PO SCH (21:41)
[2019-01-06] MEDS: TOPIRAMATE 25 MG TAB PO SCH (21:41)
[2019-01-06] MEDS: ATORVASTATIN CALCIUM 40 MG TAB PO SCH (21:41)
[2019-01-06] MEDS: traZODone 50 MG TAB PO SCH (21:41)
[2019-01-06] MEDS: RIVAROXABAN 20 MG TAB PO SCH (21:42)
[2019-01-06] MEDS: morphINE SR 15 MG TAB PO SCH (21:42)
[2019-01-06] MEDS: FLUTICASONE/SALMETER 250/50MCG DISKUS IH SCH (21:58)
[2019-01-06] MEDS: METOPROLOL TARTRATE 25 MG TAB PO SCH (22:04)
[2019-01-07] MEDS ORDERED: REGADENOSON 0.4 MG/5 ML SYR IVP ONE (08:37)
[2019-01-07] MEDS: FLUTICASONE/SALMETER 250/50MCG DISKUS IH SCH ×2 (08:50→21:33)
--- NOTE | 2019-01-07 09:18 | ASMTLACE ---
LACE Comorbidities - select Answers: Cerebrovascular disease all that apply (CVA, TIA, aneurysms, vasc ular dementia) Congestive heart failure Coronary Artery Disease Opioid dependence / Chronic pain Previous myocardial infarction Other Notes: AFib # of Emergency department Answers: 5-8 visits in the last 6 months Score: 15 Date Signed: 01/07/2019 09:18 AM Electronically Signed By:Therese Stoner
--- NOTE | 2019-01-07 11:30 | CPR ---
[f rep st] NONINVASIVE CARDIAC PROCEDURE REPORT DATE OF PROCEDURE: 01/07/2019 REPORT TITLE: LEXISCAN NUCLEAR STRESS TEST REASON FOR TEST: Chest pain, history of coronary artery disease with CABG in 1995. Resting EKG shows atrial fibrillation with a controlled rate of 89, occasional PVCs, occasional coupl ets, anterior lateral ST depression of 1 mm. Resting blood pressure 168/78, oxygen saturation 92%. Resting heart rate 84. He has no chest pain or shortness of breath prior to testing. He has mild up set stomach. STRESS PORTION: Lexiscan was injected, rapidly followed by saline flush, Cardiolite was injected, fo llowed by saline flush. He had occasional PVCs and couplets post-injection. Heart rate peaked at 11 7. Peak blood pressure 164/80, oxygen saturation 95%. Symptoms of headache after the injection were noted. No other significant EKG changes. RECOVERY: He did recover. Blood pressure 164/80, oxygen saturation 94, heart rate 117. At this time, he currently is stable for nuclear imaging. /[id number]/MODL
[2019-01-07] MEDS: FUROSEMIDE 20 MG TAB PO SCH ×2 (11:51→13:58)
[2019-01-07] MEDS: METOPROLOL TARTRATE 100 MG TAB PO SCH ×2 (11:51→13:58)
[2019-01-07] MEDS: FLUoxetine 20 MG CAP PO SCH ×2 (11:51→13:58)
[2019-01-07] MEDS: morphINE SR 15 MG TAB PO SCH ×3 (11:52→20:55)
--- NOTE | 2019-01-07 14:46 | HOSPPROG ---
Hospitalist Progress Note Assessment/Plan: * N/V - suspect gastroenteritis -still vomiting this am - couldn't take am meds * Rapid afib -likely due to missed am meds -reattempt PO meds -Xarelto for stroke prevention * CP -stress test reviewed with cardiology - plan for continued medical management * CAD/CABG, stent 2014 -no ASA/anti-platelet due to GIB * Severe PVD s/p aortofem bypass * h/o CVA with chronic left hemiparesis * Chronic pain - continuous narcotic dependency Subjective: starting to tolerate PO better Objective: Vital Signs Temp Pulse Resp BP Pulse Ox 36.9 C 113 H 16 152/97 H 94 01/07/19 11:10 01/07/19 13:58 01/07/19 11:10 01/07/19 13:58 01/07/19 11:10 Microbiology 01/07/19 11:55 Gastrointestinal Tract Panel (PCR) - Final Stool No Organism Detected By Pcr Laboratory Results 01/07/19 03:25 01/07/19 03:25 01/06/19 01/07/19 01/08/19 05:59 05:59 05:59 Intake Total 600 Output Total 750 Balance -150 tele reviewed - rapid afib d/w [facility] cardiology - no cath for now, continue med mgmt - Physical Exam Constitutional: no apparent distress, appears nourished, not in pain Cardiovascular: irregularly irregular, tachycardia, No edema Respiratory: no respiratory distress, no rales or rhonchi, clear to auscultation Gastrointestinal: normoactive bowel sounds, soft, non-tender abdomen, no palpable masses Skin: no rashes or abrasions, no fluctuance, no induration Neurologic: AAOx3, sensation intact bilaterally Psychiatric: interacting appropriately, not anxious, not encephalopathic, thought process linear ICD10 Worksheet Patient Problems: Problems Problem Status Onset Heart disease Active Morbid obesity Active Dyslipidemia Active CAD - Coronary arteriosclerosis Active Essential hypertension Active Atrial fibrillation and flutter Active Gout Active Peripheral vascular disease Active Ulcer of lower extremity Active Cough Acute COPD exacerbation Acute Viral syndrome Acute Chronic Disease Mgmt/Transitional Care Acute Chest pain Acute Upper GI bleed Acute Laceration of left leg Acute Abrasion of left hand Acute Contusion of left hand Acute Contusion of left leg Acute Contusion of left shoulder Acute Fall Acute Dehydration Acute Acute renal failure Acute Hematemesis Acute Vomiting Acute
--- NOTE | 2019-01-07 16:01 | GCON ---
[f rep st] CONSULTATION DATE OF CONSULTATION: 01/07/2019 ADMISSION DIAGNOSES: Vomiting and diarrhea. REASON FOR CONSULT: Known coronary artery disease with past [place] and coronary artery bypass surgery. We are asked by the hospitalist group to comment on recent chest pain at the time of ongoing gastrointestinal illness. HISTORY OF PRESENT ILLNESS: This is a 68-year-old male with a past history of CVA with residual left-sided weakness and hemiplegia who is wheelchair bound. He has a significant history of coronary artery disease status post coronary stent and coronary artery bypass grafting in 1995. Additionally, he has a history of paroxysmal atrial fibrillation, managed medically on beta blockers and Xarelto for anticoagulation therapy. Recently, he has been complaining of vomiting and watery diarrhea with onset 01/05/2019. Today, his heart rhythm is atrial fibrillation with rate in the 70s to 80s. He did have a nuclear stress test in 2015, which was abnormal. Again this morning, he had a nuclear stress test, which showed similar findings. He has been treated with medical management prior to this hospitalization. He has a known ejection fraction of 35%. At the time of my visit, he is rather irritable, having abdominal discomfort related to his diarrhea and nausea. He is not complaining of chest pain or shortness of breath at this time. ALLERGIES: 1. Equine containing products. 2. Tetanus vaccines and toxoid. 3. Bee pollen. 4. Gabapentin. MEDICATIONS: Home medications: Atorvastatin 40 mg at bedtime. Metoprolol tartrate 100 mg daily. Nitroglycerin 0.4 mg as needed. Morphine SR 15 mg twice daily. Advair 250/50, two puffs inhaled twice daily. Lasix 20 mg daily. Losartan 25 mg at bedtime. Nystatin 100,000 units topically as needed. Topiramate 50 mg at bedtime. Prozac 20 mg daily. Trazodone 50 mg at bedtime. Xarelto 20 mg at bedtime. Betamethasone 0.05% cream topically daily as needed. Metoprolol tartrate 25 mg at bedtime. PAST MEDICAL HISTORY: 1. Coronary artery disease. 2. CVA. 3. GI bleed. 4. Myocardial infarction. 5. Atrial fibrillation. PAST SURGICAL HISTORY: 1. Coronary artery bypass surgery in 1995. 2. Coronary stent. 3. Femur fracture repair. FAMILY HISTORY: Myocardial infarction. SOCIAL HISTORY: 1. He is a former smoker. Alcohol use remotely. Denies illicit drug use. 2. He is wheelchair bound. 3. He lives independently with the assistance of his sister, who lives next door to him. 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 REVIEW OF SYSTEM: A 10-point review of system was negative except as stated in the HPI. PHYSICAL EXAM: CONSTITUTIONAL: He is ill appearing and irritable. EYES: PERRL. Ears, nose, mouth and throat: Mucous membranes moist. Hearing normal. CARDIOVASCULAR: Heart rate irregular. No murmur, rub, or gallop noted. Peripheral pulses 1+ bilaterally. LUNGS: Reduced air. No crackles or wheezes noted. GI: Abdomen is tender. No palpable masses. Bowel sounds active. GENITOURINARY: No bladder fullness. SKIN: Warm and dry. MUSCULOSKELETAL: Generalized weakness. NEUROLOGIC: Alert and oriented x3, residual left-sided weakness due to previous CVA. PSYCHIATRIC: Affect flat. LABORATORY INVESTIGATION: 1. Chemistry: Troponin 0.012; #2 troponin 0.013. 2. Hematology. a. White blood count 12.20, hemoglobin 15.4, hematocrit 45.7, platelet count 209. 3. Electrocardiogram on 01/07/2019. a. Resting EKG shows atrial fibrillation with controlled rate of 89, occasional PVCs noted. Anterolateral ST depression of 1 mm. 4. Myocardial perfusion stress test 01/07/2019. a. Impression: Large regions of old infarcts involving the myocardial apex, anterior wall, inferior wall, and the majority of the lateral wall, with possible betty-infarct ischemia involving the lateral wall. 5. Comparison nuclear image from 04/11/2016. Impression: a. Abnormal stress test. Infarction versus reversible ischemia involving the distal anterior wall and the left lateral wall. Extensive artifact limits ability to discriminate reversible ischemia from old infarction. b. Global hypokinesis and distal anterior wall dyskinesis. Calculated left ventricular ejection fraction of 35%. IMPRESSION AND PLAN: 1. Coronary artery disease with known past myocardial infarction, percutaneous coronary intervention and coronary artery bypass grafting in 1995, per patient recall. In review of his nuclear stress test of April 11, 2016, compared to today's test 01/07/2019, there continues to be large areas of old infarcts involving the myocardial apex, anterior wall, inferior wall, and lateral wall. Possible betty-infarct ischemia involving the left lateral wall. a. At this time, we would recommend continuing with medical management including metoprolol tartrate 25 mg at bedtime, metoprolol tartrate 100 mg daily in the morning, losartan 25 mg at bedtime, and Lipitor 40 mg daily. 2. Atrial fibrillation. a. Continue management with beta jazmin therapy for rate control, along with Xarelto for anticoagulant therapy. 3. Chest pain. a. Occasional episodes of chest discomfort managed with nitroglycerin sublingual. 4. Due to his current admission with GI illness including nausea and diarrhea, he is rather withdrawn and irritable with a flat affect. At this time, no further testing is recommended. 5. He will continue with medical management. Thank you very much for asking us to be a part of this individual's care. /[id number]/MODL MTDD
[2019-01-07] MEDS: RIVAROXABAN 20 MG TAB PO SCH (20:54)
[2019-01-07] MEDS: ATORVASTATIN CALCIUM 40 MG TAB PO SCH (20:55)
[2019-01-07] MEDS: LOSARTAN POTASSIUM 25 MG TAB PO SCH (20:55)
[2019-01-07] MEDS: traZODone 50 MG TAB PO SCH (20:55)
[2019-01-07] MEDS: METOPROLOL TARTRATE 25 MG TAB PO SCH (20:55)
[2019-01-07] MEDS: TOPIRAMATE 25 MG TAB PO SCH (20:55)
[2019-01-08] MEDS: FLUTICASONE/SALMETER 250/50MCG DISKUS IH SCH ×2 (08:52→20:56)
[2019-01-08] MEDS: FLUoxetine 20 MG CAP PO SCH (09:36)
[2019-01-08] MEDS: METOPROLOL TARTRATE 100 MG TAB PO SCH (09:36)
[2019-01-08] MEDS: morphINE SR 15 MG TAB PO SCH ×2 (09:36→20:43)
[2019-01-08] MEDS: FUROSEMIDE 20 MG TAB PO SCH (09:36)
--- NOTE | 2019-01-08 13:48 | WOCRNPDOC ---
WOCRN Advanced Assessment Note - Skin Integrity Problem, Advanced Assess Left Posterior Shoulder Dressing Type: Open to Air Exudate Amount: None Zena Wound Tissue: Blanching, Intact Zena Wound Swelling: None Wound Bed Color: Muir, Red Wound Edges: Well Defined Site Measurement - Head-to-Toe Length X Width X Depth (cm): 2.5x2.5xintact Skin Integrity Problem Comment: Patient rolled to his right side with assist from WATCH AND CLOCK REPAIRER in room. Red, circular marking on patient's left posterior shoulder. Patient reports that his "shoulder tried to eat a bottlecap" leaving pleitez. Patient reports that area is tender. I offered to cover but patient would prefer to take a shower first and then "see" if he'd like to have a dressing over the area. Wound care will not continue to round.
--- NOTE | 2019-01-08 14:28 | ASMTCMCOM ---
CM Note CM Note Notes: CM discussed pt in rounds. Pt is anticipating discharge tomorrow 01/09. To from [facility] met with pt this afternoon. Pt was accepted to [facility]. To from [facility] set up transportation with [facility] for tomorrow at 12pm. To [phone] will be out of the office tomorrow. Call To's number to reach the liaison who is resolution specialist. Leah from [facility] asked BERT to fax referal to [facility]. was notified of transportation time. BERT called [facility] pt's home RN to update her on the discharge plan. Plan: [facility] NOEL to follow Date Signed: 01/08/2019 02:27 PM Electronically Signed By:Babita Grady
--- NOTE | 2019-01-08 14:49 | HOSPPROG ---
Hospitalist Progress Note Assessment/Plan: * N/V/D - suspect gastroenteritis, although GI PCR negative -advancing diet * Rapid afib -due to missed meds while vomiting -Xarelto for stroke prevention * CP -stress test reviewed with cardiology - plan for continued medical management * CAD/CABG, stent 2014 -no ASA/anti-platelet due to GIB -reviewed Dr. Crowell consultation from 04/11/16 - severe end stage CAD -there are minimal additional intervention options and repeat cath to be avoided -no recurrence of CP - happened once during GI illness - unclear that it was even cardiac * Recent UGIB due to esophagitis -took 8 weeks BID PPI - now off -also off ASA/Plavix which is risky given severe CAD/PVD -recommend restart once daily PPI + resume Plavix * Severe PVD s/p aorto-bifem bypass -Plavix/statin * h/o CVA with chronic left hemiparesis * Chronic pain - continuous narcotic dependency Subjective: Tolerating PO a little better, still with watery diarrhea Objective: Vital Signs Temp Pulse Resp BP Pulse Ox 36.6 C 98 12 114/55 L 94 01/08/19 11:06 01/08/19 13:45 01/08/19 11:06 01/08/19 11:06 01/08/19 13:45 01/07/19 01/08/19 01/09/19 05:59 05:59 05:59 Intake Total 1250 Output Total 300 Balance 950 - Time Spent With Patient Time Spent with Patient: greater than 35 minutes Time Spent with Patient: Greater than 35 minutes spent on this patients care, greater than 50% of time spent counseling, educating, and coordinating care regarding the above mentioned plan. - Physical Exam Constitutional: no apparent distress, appears nourished, not in pain Cardiovascular: regular rate and rhythym, no murmur, rub, or gallop Respiratory: no respiratory distress, no rales or rhonchi, clear to auscultation Gastrointestinal: normoactive bowel sounds, soft, non-tender abdomen, no palpable masses Skin: no rashes or abrasions, no fluctuance, no induration Neurologic: AAOx3, sensation intact bilaterally Psychiatric: interacting appropriately, not anxious, not encephalopathic, thought process linear ICD10 Worksheet Patient Problems: Problems Problem Status Onset Dehydration Acute Vomiting Acute Atrial fibrillation and flutter Active CAD - Coronary arteriosclerosis Active Dyslipidemia Active Essential hypertension Active Gout Active Heart disease Active Morbid obesity Active Peripheral vascular disease Active Ulcer of lower extremity Active Abrasion of left hand Acute Acute renal failure Acute COPD exacerbation Acute Chest pain Acute Chronic Disease Mgmt/Transitional Care Acute Contusion of left hand Acute Contusion of left leg Acute Contusion of left shoulder Acute Cough Acute Fall Acute Hematemesis Acute Laceration of left leg Acute Upper GI bleed Acute Viral syndrome Acute
[2019-01-08] MEDS: PANTOPRAZOLE SODIUM 40 MG TAB PO SCH (15:07)
[2019-01-08] MEDS: traZODone 50 MG TAB PO SCH (20:42)
[2019-01-08] MEDS: RIVAROXABAN 20 MG TAB PO SCH (20:42)
[2019-01-08] MEDS: METOPROLOL TARTRATE 25 MG TAB PO SCH (20:43)
[2019-01-08] MEDS: TOPIRAMATE 25 MG TAB PO SCH (20:43)
[2019-01-08] MEDS: LOSARTAN POTASSIUM 25 MG TAB PO SCH (20:44)
[2019-01-08] MEDS: ATORVASTATIN CALCIUM 40 MG TAB PO SCH (20:44)
--- NOTE | 2019-01-08 21:34 | PDMN ---
Medical Necessity Medical necessity: Change to IP, as of 01/07/19, per MD & MCG M-170; los >2 mn for ongoing management of suspected gastroenteritis w/persistent vomiting & inability to tolerate PO, rapid afib & chest pain; requiring further monitoring & med management; comorbid CAD, CVA w/hemiparesis, recent UGIB
[2019-01-09] MEDS: PANTOPRAZOLE SODIUM 40 MG TAB PO SCH (08:58)
[2019-01-09] MEDS: FUROSEMIDE 20 MG TAB PO SCH (08:58)
[2019-01-09] MEDS: FLUoxetine 20 MG CAP PO SCH (08:58)
[2019-01-09] MEDS: morphINE SR 15 MG TAB PO SCH (08:59)
[2019-01-09] MEDS ORDERED: CLOPIDOGREL BISULFATE 75 MG TAB PO SCH (09:00)
[2019-01-09] MEDS: METOPROLOL TARTRATE 100 MG TAB PO SCH (09:03)
[2019-01-09] MEDS: FLUTICASONE/SALMETER 250/50MCG DISKUS IH SCH (09:07)
--- NOTE | 2019-01-09 09:37 | PDIAF ---
- Diagnosis Diagnosis: Gastritis, Chest Pain Code Status: Full Code - Medication Management Discharge Medications: electronically signed and located in the Home Medication List. - Orders Services needed: Registered Nurse, Certified Hat Brim Curler, Physical Therapy, Occupational Therapy Isolation Type: None Diet Recommendation: no restrictions on diet - Follow Up Care Current Providers and Referrals: NONE *PRIMARY CARE P,. [Primary Care Provider] - As per Instructions
--- NOTE | 2019-01-09 10:07 | ASMTDCNOTE ---
Case Management Discharge Discharge Order Complete? Answers: Yes Patient to Obtain Answers: Other Notes: [facility] Medications Transportation Arranged Answers: Other Notes: [facility] Agency/Facility Transfer Answers: Yes Notes: [facility] Report Printed & Faxed to Receiving Agency Discharge Comments Notes: Pt is being medical discharged to [facility]. Discharge final orders were given to [facility] and [facility]. [facility] will be transporting pt. RN was giving report number. Date Signed: 01/09/2019 10:06 AM Electronically Signed By:Babita Grady
--- NOTE | 2019-01-09 10:11 | GDS ---
[f rep st] DISCHARGE SUMMARY DIAGNOSES: 1. Suspected viral gastroenteritis with nausea, vomiting, diarrhea. 2. Atrial fibrillation with rapid ventricular response. 3. Chest pain. 4. Coronary artery disease status post coronary artery bypass graft as well as a stent. 5. Recent upper gastrointestinal bleed due to esophagitis and gastritis with a duodenal ulcer. 6. Severe peripheral vascular disease status post aortobifemoral bypass. 7. History of cerebrovascular accident with chronic left hemiparesis. 8. Chronic pain on continuous narcotics. HOSPITAL COURSE: This is a 68-year-old man who was admitted with nausea, vomiting, and diarrhea. Th is has resolved. He is tolerating p.o. He had an episode of chest pain during this which was resolved with sublingual nitroglycerin. Given his extensive history, he had a Lexiscan stress test and was also seen by Cardiology. Lexiscan stres s test showed multiple old infarcts with some small amount of betty-infarct ischemia. Cardiology deja mmended medical management given difficulties with catheterization with his severe peripheral vascula r disease. He is not having any chest pain at this point. He had a recent episode of hematemesis, a t which point his Plavix and aspirin were held. Given the high risk nature of his vascular disease, I have elected to restart his Plavix along with a single daily PPI. I have discussed this with him. For his vascular disease, he is on aggressive medical management including statin, Plavix, Xarelto. He had an episode of atrial fibrillation with rapid ventricular response. This is due to him being d ehydrated and also not tolerating his beta jazmin due to his emesis. Heart rates have recently been controlled. He is on Xarelto. He is otherwise [facility] in [facility] condition BILLING: I spent more than 30 minutes on the day of discharge coordinating care. /[id number]/MODL
[2019-01-09 11:34] VITALS: BP 109/64
--- NOTE | 2019-01-09 12:28 | ASDISCHSUM ---
Discharge Information Plan Status:SNF Medically Cleared to Leave:01/09/2019 Discharge Date:01/09/2019 CM D/C Disposition:[facility] ADT D/C Disposition:[facility] Facility Projected Discharge Date:01/09/2019 11:00 AM Transportation at D/C:[facility] Discharge Delay Reason: Follow-Up Date:01/09/2019 11:00 AM Discharge Slot: Final Diagnosis: Placement Information Referral Type:*Usp/SNF Referral ID:[id number] Provider Name:[facility] Address 1:[address] [facility] Address 2: City:[place] Selection Factors: State:[place] Referral Type:Palliative Care Referral ID:[id number] Provider Name:[facility] Address 1:[address] Address 2: City:[place] Selection Factors: State:[place] Patient Contact Information Contact Name:KAMAR Relationship:Sister Address:[address] Work Phone: City:[place] [facility] Phone: [facility]/Zip Code:[place] [address] Email: Financial Information Financial Class:Medicare Primary Plan Desc:MEDICARE INPATIENT Primary Plan Number:[id number] Secondary Plan Desc:MED[place] Secondary Plan Number:[id number] Assessment Information LACE LACE Comorbidities - select Answers: Cerebrovascular disease all that apply (CVA, TIA, aneurysms, vasc ular dementia) Congestive heart failure Coronary Artery Disease Opioid dependence / Chronic pain Previous myocardial infarction Other Notes: AFib # of Emergency department Answers: 5-8 visits in the last 6 months Score: 15 Date Signed: 01/07/2019 09:18 AM Electronically Signed By:Therese Stoner [facility] CM Progress Note CM Note CM Note Notes: 01/07/2019 Patient admitted 01/06/2019 with vomitting and diarrhea. Met with patient. Pt lives independently. Sister Juventino [phone] lives next door with her son Jus. Pt has [facility] home[facility] as well as RN care twice weekly for med mgmt ([facility] [phone]). Pt has [facility]. elevator erector helper is Mirna Hernandez. Per Tangela, [facility] has recently completed assessment to increase unskilled services in pt home. Currently receives 4 hours in AM and 4 hours at bedtime. Per Tangela, [facility] is discussing possibility of LTC; pt is not thriving in home setting with current level of services. Pt states he uses bus to get around town. Sister provides his meals. PCP is with [facility]: Babita Ayala. Therapy evals are pending. Discharge plan TBD. Case mgmt to follow. Date Signed: 01/07/2019 02:05 PM Electronically Signed By:Sondra Sharif [facility] Progress Note CM Note CM Note Notes: CM discussed pt in rounds. Pt is anticipating discharge tomorrow 01/09. To from [facility] met with pt this afternoon. Pt was accepted to [facility]. To from [facility] set up transportation with [facility] for tomorrow at 12pm. To [phone] will be out of the office tomorrow. Call To's number to reach the liaison who is division chief. Leah from [facility] Palliative asked CM to fax referal to [facility]. was notified of transportation time. BERT called [facility] pt's home RN to update her on the discharge plan. Plan: [facility] NOEL to follow Date Signed: 01/08/2019 02:27 PM Electronically Signed By:Babita Grady Case Management Discharge Plan Note Case Management Discharge Discharge Order Complete? Answers: Yes Patient to Obtain Answers: Other Notes: [facility] Medications Transportation Arranged Answers: Other Notes: [facility] Agency/Facility Transfer Answers: Yes Notes: [facility] Report Printed & Faxed to Receiving Agency Discharge Comments Notes: Pt is being medical discharged to [facility]. Discharge final orders were given to [facility] and [facility]. [facility] will be transporting pt. RN was giving report number. Date Signed: 01/09/2019 10:06 AM Electronically Signed By:Babita Grady Intervention Information
--- NOTE | 2019-01-09 12:30 | ASMTCMCOM ---
CM Note CM Note Notes: CM recieved call from [facility] that there computer system was not allowing them to look up the discharge orders. CM faxed the final orders through [facility]. Dora [phone]. Date Signed: 01/09/2019 12:29 PM Electronically Signed By:Babita Grady
== END 2019-01-09 12:40 | DRG 392 ==
LOC: EDUNIT# → F3E 17:32 → F2W 18:53 → OBSVTOIN 01-07 13:49 → F2W 01-07 15:10
PROVIDERS: ADMIT Internal Medicine; ATTEND Internal Medicine
DX: A08.4 Viral intestinal infection, unspecified (principal); I69.354 Hemiplegia and hemiparesis following cerebral infarction affecting left non-dominant side; F11.20 Opioid dependence, uncomplicated; E86.0 Dehydration; I48.91 Unspecified atrial fibrillation; R07.9 Chest pain, unspecified; I25.2 Old myocardial infarction; I25.10 Atherosclerotic heart disease of native coronary artery without angina pectoris; K26.9 Duodenal ulcer, unspecified as acute or chronic, without hemorrhage or perforation; G89.29 Other chronic pain; Z23 Encounter for immunization; Z79.01 Long term (current) use of anticoagulants; Z99.3 Dependence on wheelchair; Z95.1 Presence of aortocoronary bypass graft; Z87.891 Personal history of nicotine dependence
CPT/HCPCS: 84484-ER; 96374; 97162-GP; 97166-GO; 97530-GO; 97530-GP; 97535-GO; A9500; G0008; G0378; J2550; J2785

== ENCOUNTER 2019-02-28 14:25 | Inpatient (IN) | payer OTHER, MEDICAID | END 2019-03-08 14:00 | LOC: F2W 16:54 ==